=== PATIENT | male | born 1945 | race Caucasian/White ===

== ENCOUNTER 2016-06-19 15:10 | Inpatient (IN) | payer MEDICARE, OTHER ==
[~2016-06-19] VITALS: Ht 177.8 cm; Wt 115.0 kg
[2016-06-19] VITALS (90 sets, daily range): BP systolic 141–150; BP diastolic 85–90; PULSE 90–131; TEMP 98–99.1; O2SAT 93–99
[~2016-06-19 15:10] MED LIST: ACCURETIC 12.51 TAB PO; ACCURETIC 25 MG1 TAB PO; ACCURETIC PO; ASPIR-LOW81 MG PO; ASPIRIN 81M81 MG/TA2 PO; ATORVASTATIN; BACTRIM DS 8001 TAB PO; BENADRYL25 M2 PO; CANA100T PO; CEPHALEXIN500 M1 PO; DULCOLAX S10 MG/SUPP RC; DULCOLAX10 MG RC; FLOMAX 0.40.4 MG/CAP PO; HCTZ; HCTZ12.5TAB PO; HUMALOG100 U/ML SC; HUMALOG100 U/ML SQ; INSULIN HUMA100 U/ML IJ; K-DUR 10 MEQ T10 MEQ PO; KLOR-CON 1010 MEQ PO; LANTUS100 U/ML; LASIX 40MG TABL40 MG PO; LEVAQUIN 5500 MG/TA1 PO; LEVEMIR SQ; LIPITOR20 MG PO; LOPRESSOR100 MG PO; LORTAB 5/500 501 TAB PO; MAGNESIUM CHLORIDE; MILK OF MAGNESI30 ML PO; MULTI VITAMINS1 TAB PO; MVI PO; NORCO 325 MG-7.1 TAB PO; NORVASC 5MG5 MG/TAB PO; NOVLOG SQ; POTASSIUM PO; ROXICODONE 55 MG/TAB PO; SENOKOT S 50 MG1 TAB PO; ST. JOSEPH81 M2 PO; TRADJENTA5 MG PO; TYLENOL EXTRA500 M1 PO; ULTRAM 50MG TAB50 MG PO; XARELTO10 MG PO; ZESTRIL 10MG10 MG PO; [UNRECOGNIZED DRUG - OTHER]; [UNRECOGNIZED DRUG - OTHER]; [UNRECOGNIZED DRUG - OTHER] SQ
[2016-06-19 17:00] LABS: BASO # 0.1 (0.0-0.2); BASO % 0.4 % (0.0-2.0); EOS # 0.3 (0.0-0.7); EOS % 2.1 % (0-4.0); GRAN # 10.9 (1.4-6.5); GRAN % 76.5 % (42.2-75.2); HEMATOCRIT 40.5 % (42.0-52.0); HEMOGLOBIN 13.4 g/dl (13.5-18.0); LYMPH % 14.3 % (20.0-51.0); MEAN CELL VOLUME 91 fl (80.0-100.0); MEAN CORPUSCULAR HEMOGLOBIN 30 pg (27.0-31.0); MEAN CORPUSCULAR HGB CONC 33 g/dl (33.0-37.0); MEAN PLATELET VOLUME 9.1 fl (7.4-10.4); MONO # 0.9 (0.1-0.6); MONO % 6.3 % (1.7-9.3); PLATELET COUNT 367 K/mm3 (130-400); RED BLOOD COUNT 4.46 M/mm3 (4.20-5.60); REDCELL DISTRIBUTION WIDTH-CV 12.9 % (11.5-14.5); WHITE BLOOD COUNT 14.2 K/mm3 (4.8-10.8)
[2016-06-19 17:16] LABS: ADJUSTED CALCIUM 9.3 mg/dL (8.4-10.2); ALBUMIN 3.9 gm/dL (3.5-5.0); BILIRUBIN,TOTAL 1.1 mg/dL (0.0-1.0); C-REACTIVE PROTEIN 2.2 mg/dL (0.0-0.9); CALCIUM 9.2 mg/dL (8.4-10.2); CREATININE, serum 1.71 mg/dL (0.66-1.25); POTASSIUM 4.6 mmol/L (3.4-5.0); TOTAL PROTEIN 7.3 gm/dL (6.4-8.2)
[2016-06-19 17:38] LABS: PH 5 (5-8); SQUAMOUS EPITHELIAL 0-2 /hpf; URINE APPEARANCE Cloudy; URINE BACTERIA Rare /hpf; URINE BILIRUBIN Negative (NEGATIVE); URINE BLOOD 3+ (NEGATIVE); URINE COLOR Yellow; URINE GLUCOSE Negative (NEGATIVE); URINE KETONE Negative (NEGATIVE); URINE RBC >50 /hpf; URINE UROBILINOGEN Negative (NEGATIVE); URINE WBC >50 /hpf
[2016-06-20] VITALS (829 sets, daily range): BP systolic 100–142; BP diastolic 73–98; PULSE 80–96; TEMP 97.7–99.7; O2SAT 90–99
[2016-06-20 05:30] LABS: BASO % 0.4 % (0.0-2.0); EOS # 0.3 (0.0-0.7); EOS % 3.2 % (0-4.0); GRAN # 7.5 (1.4-6.5); GRAN % 72.1 % (42.2-75.2); LYMPH # 1.6 (1.2-3.4); LYMPH % 15.8 % (20.0-51.0); MEAN CELL VOLUME 91 fl (80.0-100.0); MEAN CORPUSCULAR HEMOGLOBIN 30 pg (27.0-31.0); MEAN CORPUSCULAR HGB CONC 33 g/dl (33.0-37.0); MEAN PLATELET VOLUME 9.2 fl (7.4-10.4); MONO # 0.8 (0.1-0.6); MONO % 8.1 % (1.7-9.3); PLATELET COUNT 318 K/mm3 (130-400); RED BLOOD COUNT 3.97 M/mm3 (4.20-5.60); REDCELL DISTRIBUTION WIDTH-CV 12.9 % (11.5-14.5); WHITE BLOOD COUNT 10.4 K/mm3 (4.8-10.8)
[2016-06-20 05:52] LABS: CALCIUM 8.4 mg/dL (8.4-10.2); CREATININE, serum 1.44 mg/dL (0.66-1.25); POTASSIUM 4.1 mmol/L (3.4-5.0)
[2016-06-21 03:42] VITALS: BP 123/74; PULSE 95; TEMP 98.4
[2016-06-21 07:48] VITALS: BP 112/70; PULSE 97; TEMP 98
[2016-06-21 12:33] VITALS: BP 139/69; PULSE 85; TEMP 98.2
[2016-06-21 16:28] VITALS: BP 124/65; PULSE 100; TEMP 98.5
[2016-06-21] MEDS ORDERED: CEFTIN500 MG PO (17:19)
== END 2016-06-21 18:32 | disposition home or self-care (01) | DRG 309 ==
LOC: COL.ER 15:10 → ICU 18:13 → IMCU 18:13 → MEDICAL 06-20 16:18
PROVIDERS: Emergency Medicine; Internal Medicine
DX: I48.91 Unspecified atrial fibrillation (principal); T83.511A Infection and inflammatory reaction due to indwelling urethral catheter, initial encounter; N39.0 Urinary tract infection, site not specified; E11.42 Type 2 diabetes mellitus with diabetic polyneuropathy; I25.10 Atherosclerotic heart disease of native coronary artery without angina pectoris; Z95.5 Presence of coronary angioplasty implant and graft; Z85.51 Personal history of malignant neoplasm of bladder; Z79.4 Long term (current) use of insulin; N18.9 Chronic kidney disease, unspecified
CPT/HCPCS: 99223-AI; J0696; J1815; J7030; J7050

== ENCOUNTER 2016-08-01 10:14 | Outpatient (CLI) | payer MEDICARE, OTHER ==
[~2016-08-01] VITALS: Ht 177.8 cm; Wt 111.3 kg
[~2016-08-01 10:14] MED LIST changes: +CEFTIN500 MG PO
[2016-08-01 10:56] VITALS: BP 102/85; PULSE 84; TEMP 98
[2016-08-01] MEDS ORDERED: BRILINTA90 MG PO (12:41)
[2016-08-01] MEDS ORDERED: LIPITOR 40MG TA40 MG PO (12:41)
[2016-08-01] MEDS ORDERED: CEPHALEXIN500 M1 PO (12:47)
== END 2016-08-01 13:44 | disposition home or self-care (01) ==
LOC: COL.RAD 10:14
DX: I48.91 Unspecified atrial fibrillation (principal); R94.31 Abnormal electrocardiogram [ECG] [EKG]
CPT/HCPCS: C1764

== ENCOUNTER 2016-09-01 16:50 | Inpatient (IN) | payer MEDICARE, OTHER ==
[~2016-09-01] VITALS: Ht 177.8 cm; Wt 117.0 kg
[~2016-09-01 16:50] MED LIST changes: +BRILINTA90 MG PO; +LIPITOR 40MG TA40 MG PO
[2016-09-06 08:55] VITALS: BP 131/79; PULSE 81; TEMP 98.1
[2016-09-06 09:58] LABS: HEMATOCRIT 41.4 % (42.0-52.0); HEMOGLOBIN 13.7 g/dl (13.5-18.0); MEAN CELL VOLUME 89 fl (80.0-100.0); MEAN CORPUSCULAR HEMOGLOBIN 29 pg (27.0-31.0); MEAN CORPUSCULAR HGB CONC 33 g/dl (33.0-37.0); MEAN PLATELET VOLUME 9.4 fl (7.4-10.4); PLATELET COUNT 283 K/mm3 (130-400); RED BLOOD COUNT 4.67 M/mm3 (4.20-5.60); REDCELL DISTRIBUTION WIDTH-CV 14.1 % (11.5-14.5); WHITE BLOOD COUNT 9.4 K/mm3 (4.8-10.8)
[2016-09-06 10:07] LABS: INR 1.1 (0.8-3.0); PROTHROMBIN TIME 11.8 SECONDS (9.7-12.8)
[2016-09-06 10:13] LABS: ADJUSTED CALCIUM 9.4 mg/dL (8.4-10.2); BILIRUBIN,TOTAL 1.4 mg/dL (0.0-1.0); CALCIUM 9.4 mg/dL (8.4-10.2); CREATININE, serum 1.5 mg/dL (0.66-1.25); POTASSIUM 3.9 mmol/L (3.4-5.0); TOTAL PROTEIN 7.6 gm/dL (6.4-8.2)
[2016-09-06 10:43] LABS: MAGNESIUM 2.2 mg/dL (1.6-2.3)
[2016-09-06] MEDS ORDERED: NATURAL POTASS595 MG PO (10:58)
[2016-09-06 11:43] VITALS: BP 152/95; PULSE 77; TEMP 97.9
[2016-09-06 16:17] VITALS: BP 131/74; PULSE 79; TEMP 98.3
[2016-09-06 19:38] VITALS: BP 114/76; PULSE 116; TEMP 98.6
[2016-09-06 23:41] VITALS: BP 126/75; PULSE 95; TEMP 98.5
[2016-09-07 05:25] VITALS: BP 128/80; PULSE 81; TEMP 97.9
[2016-09-07 08:13] VITALS: BP 110/66; PULSE 70; TEMP 98.4
[2016-09-07 10:47] LABS: BASO # 0.1 (0.0-0.2); BASO % 0.8 % (0.0-2.0); EOS # 0.2 (0.0-0.7); EOS % 2.2 % (0-4.0); GRAN # 7.7 (1.4-6.5); GRAN % 72.2 % (42.2-75.2); HEMATOCRIT 43.9 % (42.0-52.0); HEMOGLOBIN 14.2 g/dl (13.5-18.0); LYMPH # 1.7 (1.2-3.4); LYMPH % 15.5 % (20.0-51.0); MEAN CELL VOLUME 88 fl (80.0-100.0); MEAN CORPUSCULAR HEMOGLOBIN 28 pg (27.0-31.0); MEAN CORPUSCULAR HGB CONC 32 g/dl (33.0-37.0); MEAN PLATELET VOLUME 9.4 fl (7.4-10.4); MONO # 0.9 (0.1-0.6); MONO % 8.4 % (1.7-9.3); PLATELET COUNT 315 K/mm3 (130-400); REDCELL DISTRIBUTION WIDTH-CV 14.2 % (11.5-14.5); WHITE BLOOD COUNT 10.6 K/mm3 (4.8-10.8)
[2016-09-07 11:05] LABS: CALCIUM 9.1 mg/dL (8.4-10.2); CREATININE, serum 1.48 mg/dL (0.66-1.25); POTASSIUM 4.2 mmol/L (3.4-5.0)
[2016-09-07 11:22] VITALS: BP 125/81; PULSE 89; TEMP 98.5
[2016-09-07 15:25] VITALS: BP 115/70; PULSE 90; TEMP 98.7
[2016-09-07 19:20] VITALS: BP 118/72; PULSE 96; TEMP 98.6
[2016-09-07 23:26] VITALS: BP 99/72; PULSE 92; TEMP 98.3
[2016-09-08] VITALS (7 sets, daily range): BP systolic 77–120; BP diastolic 42–87; PULSE 61–85; TEMP 97.4–97.8
[2016-09-08 07:33] LABS: INR 1.4 (0.8-3.0); PROTHROMBIN TIME 15.8 SECONDS (9.7-12.8)
[2016-09-08 07:34] LABS: BASO # 0.1 (0.0-0.2); BASO % 0.6 % (0.0-2.0); EOS # 0.3 (0.0-0.7); EOS % 3.2 % (0-4.0); GRAN # 6.9 (1.4-6.5); GRAN % 67.3 % (42.2-75.2); HEMATOCRIT 42.6 % (42.0-52.0); LYMPH # 1.9 (1.2-3.4); LYMPH % 18.2 % (20.0-51.0); MEAN CELL VOLUME 88 fl (80.0-100.0); MEAN CORPUSCULAR HEMOGLOBIN 29 pg (27.0-31.0); MEAN CORPUSCULAR HGB CONC 33 g/dl (33.0-37.0); MEAN PLATELET VOLUME 9.2 fl (7.4-10.4); MONO % 10.1 % (1.7-9.3); PLATELET COUNT 309 K/mm3 (130-400); RED BLOOD COUNT 4.86 M/mm3 (4.20-5.60); REDCELL DISTRIBUTION WIDTH-CV 14.2 % (11.5-14.5); WHITE BLOOD COUNT 10.2 K/mm3 (4.8-10.8)
[2016-09-08 07:49] LABS: CALCIUM 9.1 mg/dL (8.4-10.2); CREATININE, serum 1.58 mg/dL (0.66-1.25); MAGNESIUM 2.2 mg/dL (1.6-2.3); POTASSIUM 3.5 mmol/L (3.4-5.0)
[2016-09-08 08:16] LABS: THYROID STIMULATING HORMONE 3.32 uIU/mL (0.465-4.680)
[2016-09-08] MEDS ORDERED: XARELTO15 MG PO (16:38)
[2016-09-08] MEDS ORDERED: BETAPACE 80MG80 MG PO (16:39)
== END 2016-09-08 18:03 | disposition home or self-care (01) | DRG 310 ==
LOC: MEDICAL 09-06 08:34
PROVIDERS: Internal Medicine Cardiovascular Disease
PROC: 5A2204Z Restoration of Cardiac Rhythm, Single (ICD-10-PCS; principal; 2016-09-08)
DX: I48.0 Paroxysmal atrial fibrillation (principal); I25.10 Atherosclerotic heart disease of native coronary artery without angina pectoris; Z95.1 Presence of aortocoronary bypass graft; Z95.5 Presence of coronary angioplasty implant and graft; I15.0 Renovascular hypertension; E11.42 Type 2 diabetes mellitus with diabetic polyneuropathy; Z79.4 Long term (current) use of insulin
CPT/HCPCS: J1815; J2250; J2704; J3010; J7030

== ENCOUNTER 2016-12-15 20:24 | Observation (INO) | payer MEDICARE, OTHER ==
[~2016-12-15] VITALS: Ht 177.8 cm; Wt 114.1 kg
[~2016-12-15 20:24] MED LIST changes: +BETAPACE 80MG80 MG PO; +NATURAL POTASS595 MG PO; +XARELTO15 MG PO
[2016-12-15 22:36] VITALS: BP 209/95; PULSE 65; TEMP 98.5
[2016-12-15 22:53] LABS: INR 1.4 (0.8-3.0); PROTHROMBIN TIME 15.6 SECONDS (9.7-12.8)
[2016-12-15 22:54] LABS: MAGNESIUM 2.1 mg/dL (1.6-2.3)
[2016-12-15 22:56] LABS: PARTIAL THROMBOPLASTIN TIME 44.1 SECONDS (26.0-37.0)
[2016-12-15 23:04] LABS: B-TYPE NATRIURETIC PEPTIDE 461 pg/mL (0-125)
[2016-12-15 23:09] LABS: TROPONIN-I < 0.012 ng/mL (0.000-0.034)
[2016-12-16] VITALS (8 sets, daily range): BP systolic 156–184; BP diastolic 60–88; PULSE 56–75; TEMP 97.3–98.3
[2016-12-16 07:47] LABS: BASO # 0.1 (0.0-0.2); BASO % 0.6 % (0.0-2.0); EOS # 0.2 (0.0-0.7); EOS % 2.6 % (0-4.0); GRAN # 5.5 (1.4-6.5); GRAN % 64.3 % (42.2-75.2); HEMOGLOBIN 13.9 g/dl (13.5-18.0); LYMPH # 1.9 (1.2-3.4); LYMPH % 22.2 % (20.0-51.0); MEAN CELL VOLUME 89 fl (80.0-100.0); MEAN CORPUSCULAR HEMOGLOBIN 29 pg (27.0-31.0); MEAN CORPUSCULAR HGB CONC 33 g/dl (33.0-37.0); MEAN PLATELET VOLUME 10.1 fl (7.4-10.4); MONO # 0.8 (0.1-0.6); MONO % 9.8 % (1.7-9.3); PLATELET COUNT 259 K/mm3 (130-400); RED BLOOD COUNT 4.73 M/mm3 (4.20-5.60); REDCELL DISTRIBUTION WIDTH-CV 13.7 % (11.5-14.5); WHITE BLOOD COUNT 8.5 K/mm3 (4.8-10.8)
[2016-12-16 08:04] LABS: ALANINE AMINOTRANSFERASE 24 U/L (21-72); ALBUMIN 3.7 gm/dL (3.5-5.0); ALKALINE PHOSPHATASE 98 U/L (50-136); ANION GAP 12 mmol/L (7-16); BILIRUBIN,TOTAL 1.3 mg/dL (0.0-1.0); BLOOD UREA NITROGEN 26 mg/dL (9-20); CALCIUM 8.8 mg/dL (8.4-10.2); CARBON DIOXIDE 26 mmol/L (22-30); CHLORIDE 100 mmol/L (98-107); CHOLESTEROL 151 mg/dL (120-200); CREATININE, serum 1.32 mg/dL (0.66-1.25); GLUCOSE 196 mg/dL (74-106); HDL CHOLESTEROL 28 mg/dL; LDL CHOLESTEROL 80 mg/dL; POTASSIUM 3.4 mmol/L (3.4-5.0); SODIUM 137 mmol/L (137-145); TOTAL PROTEIN 6.8 gm/dL (6.4-8.2); TRIGLYCERIDE 213 mg/dL
[2016-12-16 08:16] LABS: TROPONIN-I < 0.012 ng/mL (0.000-0.034)
== END 2016-12-16 15:59 | disposition home or self-care (01) ==
LOC: MEDICAL 20:24
PROVIDERS: Nurse Practitioner Family
DX: R07.89 Other chest pain (principal); I12.9 Hypertensive chronic kidney disease with stage 1 through stage 4 chronic kidney disease, or unspecified chronic kidney disease; I25.10 Atherosclerotic heart disease of native coronary artery without angina pectoris; E11.22 Type 2 diabetes mellitus with diabetic chronic kidney disease; N18.9 Chronic kidney disease, unspecified; M19.90 Unspecified osteoarthritis, unspecified site; J44.9 Chronic obstructive pulmonary disease, unspecified; J45.909 Unspecified asthma, uncomplicated; E78.5 Hyperlipidemia, unspecified; Z90.5 Acquired absence of kidney; Z95.5 Presence of coronary angioplasty implant and graft; Z96.653 Presence of artificial knee joint, bilateral; Z98.52 Vasectomy status; Z79.4 Long term (current) use of insulin; Z79.01 Long term (current) use of anticoagulants; Z85.51 Personal history of malignant neoplasm of bladder; Z82.49 Family history of ischemic heart disease and other diseases of the circulatory system; R00.1 Bradycardia, unspecified; I45.10 Unspecified right bundle-branch block; E11.40 Type 2 diabetes mellitus with diabetic neuropathy, unspecified
CPT/HCPCS: 99223-AI; 99238; A9502; J1815; J2785; J7030

== ENCOUNTER 2018-02-08 12:15 | Inpatient (IN) | payer MEDICARE, OTHER ==
[2018-02-08] VITALS (11 sets, daily range): BP systolic 126–167; BP diastolic 54–98; PULSE 52–69; TEMP 97.6–98.3
[~2018-02-08] VITALS: Ht 175.3 cm; Wt 117.0 kg
[2018-02-08 13:32] LABS: HEMOGLOBIN 11.6 g/dl (13.5-18.0)
[2018-02-08 13:44] LABS: CALCIUM 8.8 mg/dL (8.4-10.2); CREATININE, serum 1.66 mg/dL (0.66-1.25); POTASSIUM 4.3 mmol/L (3.4-5.0)
[2018-02-08 13:46] LABS: HEMATOCRIT 34.3 % (42.0-52.0)
[2018-02-09 04:04] VITALS: BP 168/69; PULSE 66; TEMP 98.2
[2018-02-09 06:02] LABS: HEMOGLOBIN 10.7 g/dl (13.5-18.0); MEAN CELL VOLUME 87 fl (80.0-100.0); MEAN CORPUSCULAR HEMOGLOBIN 30 pg (27.0-31.0); MEAN CORPUSCULAR HGB CONC 34 g/dl (33.0-37.0); MEAN PLATELET VOLUME 9.5 fl (7.4-10.4); PLATELET COUNT 316 K/mm3 (130-400); RED BLOOD COUNT 3.59 M/mm3 (4.20-5.60); REDCELL DISTRIBUTION WIDTH-CV 12.4 % (11.5-14.5)
[2018-02-09 06:18] LABS: HEMATOCRIT 31.2 % (42.0-52.0)
[2018-02-09 06:40] LABS: BAND 9 % (0-10); LYMPHOCYTE 4 % (20.0-51.0); NEUTROPHILS 86 % (42.0-75.2); PLATELET ESTIMATE NORMAL (NORMAL)
[2018-02-09 07:59] VITALS: BP 141/58; PULSE 67; TEMP 98
[2018-02-09] MEDS ORDERED: AMOXICILLIN 8751 TAB PO (08:06)
[2018-02-09 11:56] VITALS: BP 152/55; PULSE 67; TEMP 98.4
[2018-02-09 12:43] LABS: CALCIUM 8.2 mg/dL (8.4-10.2); CREATININE, serum 1.6 mg/dL (0.66-1.25); POTASSIUM 4.9 mmol/L (3.4-5.0)
[2018-02-09 15:43] VITALS: BP 167/59; PULSE 69; TEMP 98.8
[2018-02-09 19:37] VITALS: BP 147/64; PULSE 67; TEMP 98.5
[2018-02-10 04:10] VITALS: BP 142/74; PULSE 64; TEMP 98.4
[2018-02-10 07:54] VITALS: BP 154/71; PULSE 62; TEMP 98.1
[2018-02-10 11:05] LABS: CALCIUM 8.3 mg/dL (8.4-10.2); CREATININE, serum 1.66 mg/dL (0.66-1.25); POTASSIUM 3.6 mmol/L (3.4-5.0)
[2018-02-10 12:15] VITALS: BP 159/61; PULSE 66; TEMP 98.5
[2018-02-10 16:28] VITALS: BP 151/75; PULSE 83; TEMP 98.2
[2018-02-10 22:01] VITALS: BP 169/67; PULSE 76; TEMP 98.5
[2018-02-11 04:00] VITALS: BP 124/58; PULSE 69; TEMP 99
[2018-02-11 07:16] VITALS: BP 142/68; PULSE 68; TEMP 98.1
[2018-02-11 08:21] LABS: BASO # 0.1 (0.0-0.2); BASO % 0.7 % (0.0-2.0); EOS # 0.1 (0.0-0.7); EOS % 1.1 % (0-4.0); GRAN # 7.5 (1.4-6.5); GRAN % 64.4 % (42.2-75.2); HEMATOCRIT 32.9 % (42.0-52.0); LYMPH # 2.6 (1.2-3.4); LYMPH % 22.1 % (20.0-51.0); MEAN CELL VOLUME 89 fl (80.0-100.0); MEAN CORPUSCULAR HEMOGLOBIN 30 pg (27.0-31.0); MEAN CORPUSCULAR HGB CONC 33 g/dl (33.0-37.0); MEAN PLATELET VOLUME 9.6 fl (7.4-10.4); MONO # 1.2 (0.1-0.6); MONO % 10.6 % (1.7-9.3); PLATELET COUNT 343 K/mm3 (130-400); RED BLOOD COUNT 3.71 M/mm3 (4.20-5.60); REDCELL DISTRIBUTION WIDTH-CV 12.8 % (11.5-14.5)
[2018-02-11] MEDS ORDERED: NOVLOG SQ (09:59)
[2018-02-11] MEDS ORDERED: LEVEMIR SQ (09:59)
[2018-02-11 10:14] LABS: CALCIUM 8.3 mg/dL (8.4-10.2); CREATININE, serum 1.49 mg/dL (0.66-1.25); POTASSIUM 4.1 mmol/L (3.4-5.0)
[2018-02-11 11:37] VITALS: BP 161/71; PULSE 69; TEMP 98
== END 2018-02-11 17:00 | disposition home or self-care (01) | DRG 663 ==
LOC: SDCO 12:15 → SURG 17:36 → SDCO 02-10 17:36 → SURG 02-10 23:59 → SDCO 02-11 03:27 → SURG 02-11 03:27
PROVIDERS: Nurse Anesthetist, Certified Registered; Nurse Practitioner Family; Physician Assistant; Urology
PROC: 0W3R8ZZ Control Bleeding in Genitourinary Tract, Via Natural or Artificial Opening Endoscopic (ICD-10-PCS; principal; 2018-02-10)
PROC: 0TBB8ZX Excision of Bladder, Via Natural or Artificial Opening Endoscopic, Diagnostic (ICD-10-PCS; 2018-02-10)
PROC: 0WCR8ZZ Extirpation of Matter from Genitourinary Tract, Via Natural or Artificial Opening Endoscopic (ICD-10-PCS; 2018-02-10)
DX: R31.0 Gross hematuria (principal); E87.1 Hypo-osmolality and hyponatremia; I48.91 Unspecified atrial fibrillation; Z85.51 Personal history of malignant neoplasm of bladder; N40.0 Benign prostatic hyperplasia without lower urinary tract symptoms; E78.5 Hyperlipidemia, unspecified; J45.909 Unspecified asthma, uncomplicated; I25.10 Atherosclerotic heart disease of native coronary artery without angina pectoris; E11.22 Type 2 diabetes mellitus with diabetic chronic kidney disease; I12.9 Hypertensive chronic kidney disease with stage 1 through stage 4 chronic kidney disease, or unspecified chronic kidney disease; N18.9 Chronic kidney disease, unspecified; Z79.01 Long term (current) use of anticoagulants; Z79.4 Long term (current) use of insulin; Z95.5 Presence of coronary angioplasty implant and graft
CPT/HCPCS: OP; 99233-AI; G0378; J0690; J1100; J1815; J2405; J2704; J3010; J3480; J7030

== ENCOUNTER 2018-02-27 12:28 | Inpatient (IN) | payer MEDICARE, OTHER ==
[~2018-02-27] VITALS: Ht 175.3 cm; Wt 120.4 kg
[~2018-02-27 12:28] MED LIST changes: +AMOXICILLIN 8751 TAB PO; +CILOXAN 5 ML5 ML OU; +CIPRO 500MG TA500 MG PO; +NOVOLOG FLEX100 U/ML SQ; +ZADITOR 5 ML5 ML OP
[2018-02-27 14:41] VITALS: BP 177/75; PULSE 74; TEMP 97.4
[2018-02-27 16:40] LABS: BASO # 0.1 (0.0-0.2); BASO % 0.6 % (0.0-2.0); EOS # 0.3 (0.0-0.7); EOS % 2.4 % (0-4.0); GRAN # 8.4 (1.4-6.5); GRAN % 68.9 % (42.2-75.2); LYMPH # 2.3 (1.2-3.4); LYMPH % 18.7 % (20.0-51.0); MEAN CELL VOLUME 91 fl (80.0-100.0); MEAN CORPUSCULAR HGB CONC 33 g/dl (33.0-37.0); MEAN PLATELET VOLUME 8.6 fl (7.4-10.4); MONO # 0.8 (0.1-0.6); MONO % 6.9 % (1.7-9.3); PLATELET COUNT 436 K/mm3 (130-400); RED BLOOD COUNT 3.07 M/mm3 (4.20-5.60); REDCELL DISTRIBUTION WIDTH-CV 13.8 % (11.5-14.5)
[2018-02-27 16:42] LABS: HEMATOCRIT 27.9 % (42.0-52.0); HEMOGLOBIN 9.1 g/dl (13.5-18.0); MEAN CORPUSCULAR HEMOGLOBIN 30 pg (27.0-31.0)
[2018-02-27 17:02] LABS: ALBUMIN 3.3 gm/dL (3.5-5.0); BILIRUBIN,TOTAL 0.5 mg/dL (0.0-1.0); CALCIUM 8.5 mg/dL (8.4-10.2); CREATININE, serum 1.44 mg/dL (0.66-1.25); POTASSIUM 4.7 mmol/L (3.4-5.0); TOTAL PROTEIN 6.4 gm/dL (6.4-8.2)
[2018-02-27 20:12] VITALS: BP 152/77; PULSE 96; TEMP 97.9
[2018-02-27 23:50] VITALS: BP 160/76; PULSE 77; TEMP 98.4
[2018-02-28 04:00] VITALS: BP 118/41; PULSE 77; TEMP 97
[2018-02-28 07:59] VITALS: BP 142/69; PULSE 73; TEMP 98.4
[2018-02-28 11:04] LABS: MEAN CELL VOLUME 93 fl (80.0-100.0); MEAN CORPUSCULAR HGB CONC 33 g/dl (33.0-37.0); MEAN PLATELET VOLUME 8.8 fl (7.4-10.4); PLATELET COUNT 456 K/mm3 (130-400); RED BLOOD COUNT 2.92 M/mm3 (4.20-5.60); REDCELL DISTRIBUTION WIDTH-CV 14.2 % (11.5-14.5)
[2018-02-28 11:06] LABS: HEMOGLOBIN 8.8 g/dl (13.5-18.0); MEAN CORPUSCULAR HEMOGLOBIN 30 pg (27.0-31.0)
[2018-02-28 11:16] LABS: BAND 3 % (0-10); LYMPHOCYTE 19 % (20.0-51.0); NEUTROPHILS 72 % (42.0-75.2); PLATELET ESTIMATE INCREASED (NORMAL)
[2018-02-28 11:49] LABS: CALCIUM 8.4 mg/dL (8.4-10.2); CREATININE, serum 1.46 mg/dL (0.66-1.25); POTASSIUM 4.4 mmol/L (3.4-5.0)
[2018-02-28 12:59] VITALS: BP 97/57; PULSE 85; TEMP 98
[2018-02-28 15:41] VITALS: BP 132/55; PULSE 80; TEMP 97.9
[2018-02-28 20:00] VITALS: BP 153/65; PULSE 81; TEMP 98.3
[2018-03-01] VITALS (8 sets, daily range): BP systolic 108–149; BP diastolic 49–70; PULSE 69–87; TEMP 97–98.6
[2018-03-01 13:45] LABS: MEAN CELL VOLUME 93 fl (80.0-100.0); MEAN CORPUSCULAR HGB CONC 32 g/dl (33.0-37.0); MEAN PLATELET VOLUME 8.4 fl (7.4-10.4); PLATELET COUNT 435 K/mm3 (130-400); RED BLOOD COUNT 2.78 M/mm3 (4.20-5.60); REDCELL DISTRIBUTION WIDTH-CV 14.6 % (11.5-14.5)
[2018-03-01 13:46] LABS: HEMATOCRIT 25.9 % (42.0-52.0); HEMOGLOBIN 8.3 g/dl (13.5-18.0); MEAN CORPUSCULAR HEMOGLOBIN 30 pg (27.0-31.0)
[2018-03-01 13:57] LABS: CALCIUM 8.3 mg/dL (8.4-10.2); CREATININE, serum 1.76 mg/dL (0.66-1.25); POTASSIUM 4.2 mmol/L (3.4-5.0)
[2018-03-01 13:58] LABS: BAND 10 % (0-10); EOSINOPHIL 4 % (0-4); LYMPHOCYTE 11 % (20.0-51.0); NEUTROPHILS 70 % (42.0-75.2); PLATELET ESTIMATE INCREASED (NORMAL)
[2018-03-01 13:59] LABS: HYPOCHROMIA 1+
[2018-03-02] VITALS (12 sets, daily range): BP systolic 112–151; BP diastolic 32–68; PULSE 67–99; TEMP 98–98.9
[2018-03-02 06:39] LABS: MEAN CELL VOLUME 94 fl (80.0-100.0); MEAN CORPUSCULAR HGB CONC 32 g/dl (33.0-37.0); MEAN PLATELET VOLUME 8.7 fl (7.4-10.4); PLATELET COUNT 409 K/mm3 (130-400); RED BLOOD COUNT 2.52 M/mm3 (4.20-5.60); REDCELL DISTRIBUTION WIDTH-CV 14.6 % (11.5-14.5)
[2018-03-02 06:48] LABS: HEMATOCRIT 23.8 % (42.0-52.0); HEMOGLOBIN 7.6 g/dl (13.5-18.0); MEAN CORPUSCULAR HEMOGLOBIN 30 pg (27.0-31.0)
[2018-03-02 06:51] LABS: CREATININE, serum 1.8 mg/dL (0.66-1.25); POTASSIUM 4.1 mmol/L (3.4-5.0)
[2018-03-02 07:19] LABS: BAND 6 % (0-10); EOSINOPHIL 4 % (0-4); LYMPHOCYTE 20 % (20.0-51.0); NEUTROPHILS 68 % (42.0-75.2); PLATELET ESTIMATE INCREASED (NORMAL)
[2018-03-02 07:20] LABS: ANISOCYTOSIS 1+; HYPOCHROMIA 2+
[2018-03-03 07:23] LABS: MEAN CELL VOLUME 91 fl (80.0-100.0); MEAN CORPUSCULAR HGB CONC 32 g/dl (33.0-37.0); MEAN PLATELET VOLUME 8.9 fl (7.4-10.4); PLATELET COUNT 419 K/mm3 (130-400); RED BLOOD COUNT 2.79 M/mm3 (4.20-5.60); REDCELL DISTRIBUTION WIDTH-CV 15.1 % (11.5-14.5)
[2018-03-03 07:25] LABS: HEMATOCRIT 25.3 % (42.0-52.0); HEMOGLOBIN 8.2 g/dl (13.5-18.0); MEAN CORPUSCULAR HEMOGLOBIN 29 pg (27.0-31.0)
[2018-03-03 07:29] LABS: CALCIUM 7.9 mg/dL (8.4-10.2); CREATININE, serum 1.73 mg/dL (0.66-1.25); POTASSIUM 3.9 mmol/L (3.4-5.0)
[2018-03-03 07:46] LABS: ANISOCYTOSIS 1+; BAND 4 % (0-10); LYMPHOCYTE 29 % (20.0-51.0); NEUTROPHILS 64 % (42.0-75.2); PLATELET ESTIMATE INCREASED (NORMAL)
[2018-03-03 08:45] VITALS: BP 142/64; PULSE 69; TEMP 99.3
[2018-03-03 12:15] VITALS: BP 117/57; PULSE 60; TEMP 97.8
[2018-03-03 16:19] VITALS: BP 114/69; PULSE 55; TEMP 97.5
[2018-03-03 19:39] VITALS: BP 140/58; PULSE 68; TEMP 98
[2018-03-04] VITALS (11 sets, daily range): BP systolic 109–163; BP diastolic 48–72; PULSE 67–92; TEMP 98.1–99
[2018-03-04 11:02] LABS: HEMATOCRIT 26.7 % (42.0-52.0); HEMOGLOBIN 8.7 g/dl (13.5-18.0)
[2018-03-05 04:45] VITALS: BP 127/66; BP 141/56; PULSE 74; PULSE 75; TEMP 98; TEMP 98.3
[2018-03-05 08:20] VITALS: BP 125/53; PULSE 81; TEMP 99.1
[2018-03-05 09:26] LABS: MEAN CELL VOLUME 94 fl (80.0-100.0); MEAN CORPUSCULAR HGB CONC 33 g/dl (33.0-37.0); MEAN PLATELET VOLUME 8.7 fl (7.4-10.4); PLATELET COUNT 339 K/mm3 (130-400); RED BLOOD COUNT 2.89 M/mm3 (4.20-5.60); REDCELL DISTRIBUTION WIDTH-CV 15.7 % (11.5-14.5)
[2018-03-05 09:29] LABS: HEMATOCRIT 27.1 % (42.0-52.0); HEMOGLOBIN 8.8 g/dl (13.5-18.0); MEAN CORPUSCULAR HEMOGLOBIN 30 pg (27.0-31.0)
[2018-03-05 09:39] LABS: CALCIUM 8.1 mg/dL (8.4-10.2); CREATININE, serum 1.63 mg/dL (0.66-1.25); POTASSIUM 4.3 mmol/L (3.4-5.0)
[2018-03-05 11:14] VITALS: BP 137/62; PULSE 80; TEMP 97.6
[2018-03-05 15:37] VITALS: BP 122/60; PULSE 87; TEMP 97.7
[2018-03-05 20:08] VITALS: BP 136/64; PULSE 82; TEMP 98.2
[2018-03-05 23:37] VITALS: BP 143/59; PULSE 77; TEMP 98.8
[2018-03-06 04:12] VITALS: BP 135/55; PULSE 87; TEMP 98.7
[2018-03-06 07:50] VITALS: BP 141/57; PULSE 77; TEMP 98.4
[2018-03-06 10:01] LABS: BASO # 0.1 (0.0-0.2); BASO % 0.5 % (0.0-2.0); EOS # 0.3 (0.0-0.7); EOS % 2.1 % (0-4.0); GRAN # 11.5 (1.4-6.5); GRAN % 76.2 % (42.2-75.2); LYMPH # 2.2 (1.2-3.4); LYMPH % 14.8 % (20.0-51.0); MEAN CELL VOLUME 94 fl (80.0-100.0); MEAN CORPUSCULAR HGB CONC 32 g/dl (33.0-37.0); MEAN PLATELET VOLUME 8.7 fl (7.4-10.4); MONO # 0.9 (0.1-0.6); MONO % 5.7 % (1.7-9.3); PLATELET COUNT 423 K/mm3 (130-400); RED BLOOD COUNT 2.93 M/mm3 (4.20-5.60); REDCELL DISTRIBUTION WIDTH-CV 15.4 % (11.5-14.5)
[2018-03-06 10:03] LABS: HEMATOCRIT 27.5 % (42.0-52.0); HEMOGLOBIN 8.7 g/dl (13.5-18.0); MEAN CORPUSCULAR HEMOGLOBIN 30 pg (27.0-31.0)
[2018-03-06 10:09] LABS: CALCIUM 8.5 mg/dL (8.4-10.2); CREATININE, serum 1.7 mg/dL (0.66-1.25); POTASSIUM 4.2 mmol/L (3.4-5.0)
[2018-03-06 11:20] VITALS: BP 151/63; PULSE 82; TEMP 98.2
[2018-03-06 15:23] VITALS: BP 154/62; PULSE 89; TEMP 98.6
[2018-03-06 20:22] VITALS: BP 159/66; PULSE 80; TEMP 98
[2018-03-06 23:35] VITALS: BP 153/60; PULSE 82; TEMP 99
[2018-03-07 04:30] VITALS: BP 143/63; PULSE 78; TEMP 98.5
[2018-03-07 07:35] LABS: BASO # 0.1 (0.0-0.2); BASO % 0.6 % (0.0-2.0); EOS # 0.2 (0.0-0.7); EOS % 2.2 % (0-4.0); GRAN # 7.7 (1.4-6.5); GRAN % 70.9 % (42.2-75.2); LYMPH # 1.9 (1.2-3.4); LYMPH % 17.3 % (20.0-51.0); MEAN CELL VOLUME 94 fl (80.0-100.0); MEAN CORPUSCULAR HGB CONC 32 g/dl (33.0-37.0); MEAN PLATELET VOLUME 8.6 fl (7.4-10.4); MONO # 0.9 (0.1-0.6); MONO % 8.4 % (1.7-9.3); PLATELET COUNT 379 K/mm3 (130-400); RED BLOOD COUNT 2.93 M/mm3 (4.20-5.60); REDCELL DISTRIBUTION WIDTH-CV 15.1 % (11.5-14.5)
[2018-03-07 07:42] LABS: CALCIUM 8.3 mg/dL (8.4-10.2); CREATININE, serum 1.41 mg/dL (0.66-1.25); HEMATOCRIT 27.6 % (42.0-52.0); HEMOGLOBIN 8.8 g/dl (13.5-18.0); MEAN CORPUSCULAR HEMOGLOBIN 30 pg (27.0-31.0); POTASSIUM 4.2 mmol/L (3.4-5.0)
[2018-03-07 09:00] VITALS: BP 169/67; PULSE 76; TEMP 98.5
[2018-03-07] MEDS ORDERED: CIPRO 250MG TA250 MG PO (09:03)
[2018-03-07 11:43] VITALS: BP 151/64; PULSE 71; TEMP 98.2
== END 2018-03-07 13:00 | disposition home or self-care (01) | DRG 699 ==
LOC: SURG 12:28
PROVIDERS: Internal Medicine; Nurse Practitioner Family; Physician Assistant; Urology
PROC: 0TCB8ZZ Extirpation of Matter from Bladder, Via Natural or Artificial Opening Endoscopic (ICD-10-PCS; principal; 2018-03-04 13:00)
DX: N32.89 Other specified disorders of bladder (principal); E87.1 Hypo-osmolality and hyponatremia; N17.9 Acute kidney failure, unspecified; R31.0 Gross hematuria; E78.5 Hyperlipidemia, unspecified; E11.65 Type 2 diabetes mellitus with hyperglycemia; I12.9 Hypertensive chronic kidney disease with stage 1 through stage 4 chronic kidney disease, or unspecified chronic kidney disease; E11.22 Type 2 diabetes mellitus with diabetic chronic kidney disease; N18.3 Chronic kidney disease, stage 3 (moderate); E11.42 Type 2 diabetes mellitus with diabetic polyneuropathy; Z79.4 Long term (current) use of insulin; I48.91 Unspecified atrial fibrillation; I25.10 Atherosclerotic heart disease of native coronary artery without angina pectoris; Z87.891 Personal history of nicotine dependence; Z95.5 Presence of coronary angioplasty implant and graft; Z79.01 Long term (current) use of anticoagulants; H10.31 Unspecified acute conjunctivitis, right eye; E83.51 Hypocalcemia; D50.0 Iron deficiency anemia secondary to blood loss (chronic)
CPT/HCPCS: 99223; 99232-AI; 99233-AI; G0378; G0379; J0690; J1100; J1815; J2405; J2704; J2765; J3010; J7030; P9016; Q9967

== ENCOUNTER → 2018-03-15 | Emergency (ER) | payer MEDICARE, OTHER ==
[~2018-03-15] VITALS: Ht 175.3 cm; Wt 114.5 kg
[~2018-03-15] MED LIST changes: +CIPRO 250MG TA250 MG PO
[2018-03-15 17:21] VITALS: TEMP 99.4
[2018-03-15 19:30] VITALS: BP 164/84; PULSE 87
== END ==
LOC: COL.ER 17:11
DX: R31.9 Hematuria, unspecified (principal); R33.9 Retention of urine, unspecified; I48.91 Unspecified atrial fibrillation; J45.909 Unspecified asthma, uncomplicated; N40.0 Benign prostatic hyperplasia without lower urinary tract symptoms; E78.5 Hyperlipidemia, unspecified; I10 Essential (primary) hypertension; I25.10 Atherosclerotic heart disease of native coronary artery without angina pectoris; Z79.01 Long term (current) use of anticoagulants; Z85.51 Personal history of malignant neoplasm of bladder; Z79.4 Long term (current) use of insulin

== ENCOUNTER 2018-07-29 10:29 | Inpatient (IN) | payer MEDICARE, OTHER ==
[~2018-07-29] VITALS: Ht 175.3 cm; Wt 102.5 kg
[2018-07-29] VITALS (461 sets, daily range): BP systolic 132–178; BP diastolic 54–78; PULSE 41–45; TEMP 98.3–99; O2SAT 78–100
[2018-07-29 11:23] LABS: BASO # 0.1 (0.0-0.2); BASO % 0.5 % (0.0-2.0); EOS # 0.1 (0.0-0.7); EOS % 0.7 % (0-4.0); GRAN # 11.4 (1.4-6.5); GRAN % 76.5 % (42.2-75.2); HEMOGLOBIN 12.1 g/dl (13.5-18.0); LYMPH # 1.8 (1.2-3.4); LYMPH % 11.9 % (20.0-51.0); MEAN CELL VOLUME 86 fl (80.0-100.0); MEAN CORPUSCULAR HEMOGLOBIN 28 pg (27.0-31.0); MEAN CORPUSCULAR HGB CONC 33 g/dl (33.0-37.0); MEAN PLATELET VOLUME 9.7 fl (7.4-10.4); MONO # 1.5 (0.1-0.6); MONO % 9.9 % (1.7-9.3); PLATELET COUNT 322 K/mm3 (130-400); RED BLOOD COUNT 4.31 M/mm3 (4.20-5.60); REDCELL DISTRIBUTION WIDTH-CV 14.8 % (11.5-14.5)
[2018-07-29 11:41] LABS: ALANINE AMINOTRANSFERASE 15 U/L (21-72); ALBUMIN 3.4 gm/dL (3.5-5.0); ALKALINE PHOSPHATASE 104 U/L (50-136); ANION GAP 7 mmol/L (7-16); AST,SGOT 23 U/L (15-37); BILIRUBIN,TOTAL 1.8 mg/dL (0.0-1.0); BLOOD UREA NITROGEN 48 mg/dL (9-20); CALCIUM 8.5 mg/dL (8.4-10.2); CARBON DIOXIDE 27 mmol/L (22-30); CHLORIDE 98 mmol/L (98-107); CREATININE, serum 2.02 mg/dL (0.66-1.25); GLUCOSE 235 mg/dL (74-106); SODIUM 132 mmol/L (137-145); TOTAL PROTEIN 6.6 gm/dL (6.4-8.2)
[2018-07-29 11:55] LABS: TROPONIN-I < 0.012 ng/mL (0.000-0.035)
[2018-07-29] MEDS ORDERED: COZAAR 50MG50 MG/TAB PO (13:04)
[2018-07-29] MEDS ORDERED: LOPRESSOR100 MG PO (13:05)
[2018-07-29] MEDS ORDERED: LASIX 40MG TABL40 MG PO (13:58)
[2018-07-29] MEDS ORDERED: LASIX 20MG TABL20 MG PO (13:59)
[2018-07-29] MEDS ORDERED: LEVEMIR SQ (14:07)
[2018-07-29] MEDS ORDERED: NOVOLOG FLEX100 U/ML SQ (14:09)
[2018-07-29] MEDS ORDERED: COZAAR 25MG25 MG/TAB PO (14:15)
[2018-07-29] MEDS ORDERED: ASPIRIN 81M81 MG/TA2 PO (14:16)
[2018-07-29] MEDS ORDERED: NORVASC 5MG5 MG/TAB PO (14:16)
[2018-07-29] MEDS ORDERED: FLOMAX 0.40.4 MG/CAP PO (14:17)
[2018-07-29] MEDS ORDERED: STOOL SOFTENER100 M2 PO (14:18)
[2018-07-29 18:24] LABS: COLLECTION METHOD CATHETER
[2018-07-29 18:30] LABS: PH 6 (5-8); SQUAMOUS EPITHELIAL None Seen /hpf; URINE APPEARANCE Clear; URINE BACTERIA None Seen /hpf; URINE BILIRUBIN Negative (NEGATIVE); URINE BLOOD 1+ (NEGATIVE); URINE COLOR Straw; URINE GLUCOSE 3+ (NEGATIVE); URINE KETONE Negative (NEGATIVE); URINE LEUKOCYTE ESTERASE Negative (NEGATIVE); URINE NITRATE Negative (NEGATIVE); URINE PROTEIN(semi-quant) Negative (NEGATIVE); URINE UROBILINOGEN Negative (NEGATIVE)
[2018-07-29 18:53] LABS: CREATININE, serum 1.89 mg/dL (0.66-1.25)
[2018-07-29 18:54] LABS: FRACTIONAL EXCRETION OF NA+ 4.3 %
--- NOTE | 2018-07-29 19:10 | NUR ---
Report received from Albertina PAYNE
--- NOTE | 2018-07-29 20:00 | NUR ---
Pt assessment complete. Pt resting in recliner with demonstrated ability to either recline back or sit upright. Personal belongings within reach as well as call light. Pt denies any pain/ discomfort at this time although reports the sensation of feeling SOA. O2 and RR WNL on RA. Pt reports sitting upright helps with sensation. Speech is appropriate. Television is currently on.
--- NOTE | 2018-07-29 22:30 | NUR ---
Pt notified nurse of preference to sleep in recliner. Blankets provided for pt.
[2018-07-30] VITALS (162 sets, daily range): BP systolic 151–178; BP diastolic 40–72; PULSE 44–48; TEMP 98.3–99.2; O2SAT 79–100
[2018-07-30 05:05] LABS: BASO # 0.1 (0.0-0.2); BASO % 0.6 % (0.0-2.0); EOS # 0.1 (0.0-0.7); EOS % 0.9 % (0-4.0); GRAN # 8.6 (1.4-6.5); GRAN % 73.8 % (42.2-75.2); HEMOGLOBIN 11.7 g/dl (13.5-18.0); LYMPH # 1.5 (1.2-3.4); LYMPH % 12.6 % (20.0-51.0); MEAN CELL VOLUME 85 fl (80.0-100.0); MEAN CORPUSCULAR HEMOGLOBIN 28 pg (27.0-31.0); MEAN CORPUSCULAR HGB CONC 33 g/dl (33.0-37.0); MEAN PLATELET VOLUME 9.7 fl (7.4-10.4); MONO # 1.4 (0.1-0.6); MONO % 11.7 % (1.7-9.3); PLATELET COUNT 306 K/mm3 (130-400); RED BLOOD COUNT 4.22 M/mm3 (4.20-5.60); REDCELL DISTRIBUTION WIDTH-CV 14.8 % (11.5-14.5)
[2018-07-30 05:06] LABS: HEMATOCRIT 35.7 % (42.0-52.0)
[2018-07-30 05:16] LABS: ALBUMIN 3.1 gm/dL (3.5-5.0); BILIRUBIN,TOTAL 1.8 mg/dL (0.0-1.0); CALCIUM 8.4 mg/dL (8.4-10.2); CHOLESTEROL RISK RATIO 6.7; CREATININE, serum 1.87 mg/dL (0.66-1.25); MAGNESIUM 2.4 mg/dL (1.6-2.3); POTASSIUM 4.3 mmol/L (3.4-5.0); TOTAL PROTEIN 6.3 gm/dL (6.4-8.2)
[2018-07-30 05:45] LABS: BILIRUBIN UNCONJUGATED 1.6 mg/dL (0.0-1.1); BILIRUBIN,DIRECT 0.1 mg/dL (0.0-0.4)
--- NOTE | 2018-07-30 07:15 | NUR ---
Pt resting with eyes closed in chair. Report provided to Roopa Amato RN.
--- NOTE | 2018-07-30 07:59 | NUR ---
PATIENT SITTING IN RECLINER IN ROOM. HE SLEPT IN IT LAST NIGHT DUE TO HIS FEELING OF BEING SHORT OF BREATH. PATIENT STATES "I CAN'T TAKE IT ANY MORE. I AM SO SHORT OF BREATH. I DIDN'T SLEEP ANY LAST NIGHT." LUNG SOUNDS WERE CLEAR, TALKED WITH PATIENT ABOUT TALKING TO DR. ESTEVEZ ABOUT HOW LONG IT SHOULD TAKE TO GET THE MEDICATIONS OUT OF HIS SYSTEM.
--- NOTE | 2018-07-30 09:57 | NUR ---
SW attended clinical rounding and met with patient to discuss discharge planning. Patient lives with his Consuelo in [place]. his PCP is Isabella Mckinley at [facility] and he obtains his medications there or at [facility]. Patient was provided a DPOA-HC at a previous visit but has not completed it. Patient plans to dc home with family support. SW to continue to follow.
--- NOTE | 2018-07-30 11:28 | NUR ---
First visit from the ward supervisor. No needs right now.
--- NOTE | 2018-07-30 13:00 | NUR ---
Report given to Myra Suh on medical. Plan of care was discussed. Patient will be taken to room 306 on portable telemetry. Nurse was notified of patient's arrival.
--- NOTE | 2018-07-30 14:00 | NUR ---
Pt arrived to room 306 at this time. He is A/O x3. His breathing is even and unlabored on RA. Pt currently denies any pain. No SOB. Chronic N/T to bilateral hands and feet. Marialuisa MCKOY. BLE edema present 2+. POC discussed with patient who verbalizes understanding. Call light within reach. Will continue to monitor.
--- NOTE | 2018-07-30 19:58 | NUR ---
PT resting in bed A+Ox4. no pain. castaneda is draining freely, no kinks. urine is pale yellow with some sediment. pt c/o "eyes feel like they are in a sandbox", prn benadryl given. pt c/o post nasal drip. IV flushes well. no redness. no swelling. pt reports using call light if needing to go to the BR. education on low heart rate. no needs at this time. call light in reach
[2018-07-31] VITALS (13 sets, daily range): BP systolic 144–167; BP diastolic 45–96; PULSE 43–88; TEMP 97.6–98.8
--- NOTE | 2018-07-31 01:43 | NUR ---
pt felt clamy and sweaty, gave pt snack at 2330. pt NPO at midnight. no pain. reports feeling soa. HR 47, O2 sat 93%. no needs at this time. call light in reach
--- NOTE | 2018-07-31 05:25 | NUR ---
pt had an uneventful night. HR in 40's thorughout night. no pain. reports SOA. castaneda draining freely, without kinks. pt NPO at midnight. no needs at this time. call light in reach
[2018-07-31 06:17] LABS: BASO # 0.1 (0.0-0.2); BASO % 0.6 % (0.0-2.0); EOS # 0.1 (0.0-0.7); GRAN # 9.1 (1.4-6.5); GRAN % 75.2 % (42.2-75.2); HEMOGLOBIN 11.4 g/dl (13.5-18.0); LYMPH # 1.8 (1.2-3.4); LYMPH % 14.6 % (20.0-51.0); MEAN CELL VOLUME 86 fl (80.0-100.0); MEAN CORPUSCULAR HEMOGLOBIN 28 pg (27.0-31.0); MEAN CORPUSCULAR HGB CONC 33 g/dl (33.0-37.0); MEAN PLATELET VOLUME 9.9 fl (7.4-10.4); MONO % 8.2 % (1.7-9.3); PLATELET COUNT 331 K/mm3 (130-400); RED BLOOD COUNT 4.06 M/mm3 (4.20-5.60); REDCELL DISTRIBUTION WIDTH-CV 14.6 % (11.5-14.5)
[2018-07-31 06:22] LABS: HEMATOCRIT 34.8 % (42.0-52.0)
[2018-07-31 06:35] LABS: CALCIUM 8.3 mg/dL (8.4-10.2); CREATININE, serum 1.74 mg/dL (0.66-1.25); POTASSIUM 4.1 mmol/L (3.4-5.0)
--- NOTE | 2018-07-31 07:14 | NUR ---
pt stated, "i feel like i will pass out, my ears are ringing." vitals assessed and stable. no needs at this time. call light in reach. report given to KERRY Lal
[2018-07-31 07:36] LABS: INR 1.2 (0.8-3.0); PROTHROMBIN TIME 13.3 SECONDS (9.7-12.8)
--- NOTE | 2018-07-31 09:24 | NUR ---
Assessment complete.patient awake,alert and oriented x4.denies pain or discomfort.HR in 40s.pulses weak.some meds held per cardiology.pacemaker inplantation scheduled for today.pt NPO.no other needs voiced at this time.call light in reach
--- NOTE | 2018-07-31 12:23 | NUR ---
pt taken to OR for pacemaker implantation.
--- NOTE | 2018-07-31 12:35 | NUR ---
ALL MEDS GIVEN VIA VERBAL WITH READBACK. SEE MERGE FOR ADMIN TIMES.
--- NOTE | 2018-07-31 14:18 | NUR ---
Pt return to room 306 from computer laboratory technician.pacemaker implanted to left upper chest and loop recorder removed.pt awake and able to follow commands.family at bedside.VSS.patient denies denies pain at this time.will continue to monitor.call light in reach
--- NOTE | 2018-07-31 18:26 | NUR ---
pt resting in bed at this time.VSS.HR in 80s.denies dizziness and vertigo.education provided regarding pacemaker and sling.patient voiced understanding.denies any pain.denies any needs at this time.call light in reach
--- NOTE | 2018-07-31 20:25 | NUR ---
Patient resting in bed watching tv. Blood sugar elevated this eveningat 453. SAMANTHA Wheeler notified, give scheduled 30 units of levemir and 14 units of novolog via HDSS, will recheck blood sugar in 4 hours. Assessment completed, pacemaker site C/D/I, loop recorder removed and site is C/D/I. Denies pain. Elam in place. IV site free of comlications, C/D/I. No further needs at this time.
[2018-08-01 04:27] VITALS: BP 162/59; PULSE 73; TEMP 98.6
--- NOTE | 2018-08-01 05:07 | NUR ---
Patient slept on/off last night. Both dressings c/d/i. Some elevated blood pressures, hydralazine adminsitered twice last night for SBP>160. Denies pain. Ambulatory. Elam catheter in place. No further needs at this time.
--- NOTE | 2018-08-01 05:45 | NUR ---
Patient's blood sugar dropped this morning to 79. As this is such a big drop in 5-6 hours, this nurse gave patient some ming crackers, juice, and applesauce to choose from.
[2018-08-01 06:34] LABS: BASO # 0.1 (0.0-0.2); BASO % 0.6 % (0.0-2.0); EOS # 0.3 (0.0-0.7); GRAN # 9.2 (1.4-6.5); GRAN % 73.1 % (42.2-75.2); LYMPH # 1.6 (1.2-3.4); LYMPH % 12.9 % (20.0-51.0); MEAN CELL VOLUME 84 fl (80.0-100.0); MEAN CORPUSCULAR HEMOGLOBIN 28 pg (27.0-31.0); MEAN CORPUSCULAR HGB CONC 33 g/dl (33.0-37.0); MEAN PLATELET VOLUME 9.3 fl (7.4-10.4); MONO # 1.4 (0.1-0.6); MONO % 11.1 % (1.7-9.3); PLATELET COUNT 376 K/mm3 (130-400); RED BLOOD COUNT 4.28 M/mm3 (4.20-5.60); REDCELL DISTRIBUTION WIDTH-CV 14.5 % (11.5-14.5)
[2018-08-01 06:47] LABS: ALBUMIN 3.3 gm/dL (3.5-5.0); BILIRUBIN,TOTAL 1.3 mg/dL (0.0-1.0); CALCIUM 8.5 mg/dL (8.4-10.2); CREATININE, serum 1.66 mg/dL (0.66-1.25); TOTAL PROTEIN 6.6 gm/dL (6.4-8.2)
[2018-08-01 07:00] VITALS: BP 158/44; PULSE 80; TEMP 98.4
--- NOTE | 2018-08-01 10:10 | NUR ---
Assessment complete.patient awake,a/ox4.denies pain or discomfort at this time.LSCTA.breathing even and unlabored.dressing to left chest CDI.pacemaker and loop recorder sites covered with carmen and tape are CDI.patient denies pain to these areas.Reports itchy eyes,benadryl given.BLE edema 2+.Elam catheter in place and draining adequately.INT x2 to RAC and LAC.patient VSS.Blood sugar Stable.denies any other needs at this time.call light in reach
[2018-08-01 10:45] VITALS: BP 141/61; PULSE 105; TEMP 98.7
--- NOTE | 2018-08-01 12:56 | NUR ---
SW attended clinical rounds. Patient will be discharging home today. SW presented an IM to patient. He signed but did not want a copy.
[2018-08-01] MEDS ORDERED: CEPHALEXIN500 M1 PO (14:30)
[2018-08-01] MEDS ORDERED: NORVASC 10MG10 MG PO (14:31)
--- NOTE | 2018-08-01 15:24 | NUR ---
INT removed and patient education was provided to the patient and his family. All questions answered and the patient was escorted out via wheelchair.
== END 2018-08-01 15:40 | disposition home or self-care (01) | DRG 242 ==
LOC: COL.ER 10:29 → ICU 12:25 → MEDICAL 07-30 13:43
PROVIDERS: Emergency Medicine; Physician Assistant; ADMIT Hospitalist
PROC: 0JH607Z Insertion of Cardiac Resynchronization Pacemaker Pulse Generator into Chest Subcutaneous Tissue and Fascia, Open Approach (ICD-10-PCS; principal; 2018-07-31)
PROC: 02HL3JZ Insertion of Pacemaker Lead into Left Ventricle, Percutaneous Approach (ICD-10-PCS; 2018-07-31)
PROC: 02H63JZ Insertion of Pacemaker Lead into Right Atrium, Percutaneous Approach (ICD-10-PCS; 2018-07-31)
PROC: 02HK3JZ Insertion of Pacemaker Lead into Right Ventricle, Percutaneous Approach (ICD-10-PCS; 2018-07-31)
PROC: 0JPT02Z Removal of Monitoring Device from Trunk Subcutaneous Tissue and Fascia, Open Approach (ICD-10-PCS; 2018-07-31)
DX: I44.2 Atrioventricular block, complete (principal); I50.33 Acute on chronic diastolic (congestive) heart failure; N17.9 Acute kidney failure, unspecified; E87.1 Hypo-osmolality and hyponatremia; I13.0 Hypertensive heart and chronic kidney disease with heart failure and stage 1 through stage 4 chronic kidney disease, or unspecified chronic kidney disease; E11.22 Type 2 diabetes mellitus with diabetic chronic kidney disease; N18.3 Chronic kidney disease, stage 3 (moderate); I48.0 Paroxysmal atrial fibrillation; I25.10 Atherosclerotic heart disease of native coronary artery without angina pectoris; E11.65 Type 2 diabetes mellitus with hyperglycemia; Z23 Encounter for immunization; E78.5 Hyperlipidemia, unspecified; Z85.51 Personal history of malignant neoplasm of bladder; Z95.5 Presence of coronary angioplasty implant and graft; E11.42 Type 2 diabetes mellitus with diabetic polyneuropathy; Z79.4 Long term (current) use of insulin; J45.20 Mild intermittent asthma, uncomplicated
CPT/HCPCS: 99222-AI; 99232-AI; 99239; C1769; C1894; C1898; C1900; C2621; J0360; J0690; J1644; J1815; J1940; J2250; J3010; J7030; Q9967

== ENCOUNTER → 2019-09-06 | Outpatient (CLI) | payer MEDICARE, OTHER ==
[~2019-09-06] MED LIST changes: +CLEOCIN HCL300 MG PO; +COZAAR 25MG25 MG/TAB PO; +COZAAR 50MG50 MG/TAB PO; +LASIX 20MG TABL20 MG PO; +NORVASC 10MG10 MG PO; +STOOL SOFTENER100 M2 PO
== END ==
LOC: ZCOL.LAB 13:48
DX: E11.621 Type 2 diabetes mellitus with foot ulcer (principal); E11.22 Type 2 diabetes mellitus with diabetic chronic kidney disease; N18.9 Chronic kidney disease, unspecified; L97.509 Non-pressure chronic ulcer of other part of unspecified foot with unspecified severity

== ENCOUNTER → 2019-10-08 | Outpatient (CLI) | payer MEDICARE, OTHER ==
[~2019-10-08] MED LIST changes: +AMOXICILLIN/CLA1 TA1 PO; +[UNRECOGNIZED DRUG - OTHER]
== END ==
LOC: ZCOL.LAB 16:09
DX: E11.621 Type 2 diabetes mellitus with foot ulcer (principal)

== ENCOUNTER 2020-01-29 10:48 | Emergency (ER) | payer MEDICARE, OTHER ==
[~2020-01-29] VITALS: Ht 175.3 cm; Wt 120.0 kg
[2020-01-29 10:53] VITALS: TEMP 98.2
[2020-01-29] MEDS ORDERED: COZAAR 50MG50 MG/TAB PO (11:25)
[2020-01-29] MEDS ORDERED: LANTUS100 U/ML SQ (11:27)
[2020-01-29] MEDS ORDERED: HUMALOG100 U/ML SQ (11:27)
[2020-01-29 12:20] LABS: BASO # 0.1 (0.0-0.2); BASO % 0.7 % (0.0-2.0); EOS # 0.2 (0.0-0.7); EOS % 1.6 % (0-4.0); GRAN # 6.5 (1.4-6.5); GRAN % 71.8 % (42.2-75.2); HEMATOCRIT 44.5 % (42.0-52.0); HEMOGLOBIN 14.6 g/dl (13.5-18.0); LYMPH # 1.6 (1.2-3.4); LYMPH % 17.1 % (20.0-51.0); MEAN CELL VOLUME 87 fl (80.0-100.0); MEAN CORPUSCULAR HEMOGLOBIN 29 pg (27.0-31.0); MEAN CORPUSCULAR HGB CONC 33 g/dl (33.0-37.0); MEAN PLATELET VOLUME 9.3 fl (7.4-10.4); MONO # 0.8 (0.1-0.6); MONO % 8.4 % (1.7-9.3); PLATELET COUNT 274 K/mm3 (130-400); RED BLOOD COUNT 5.12 M/mm3 (4.20-5.60); REDCELL DISTRIBUTION WIDTH-CV 14.3 % (11.5-14.5)
[2020-01-29 12:34] LABS: ALANINE AMINOTRANSFERASE 13 U/L (4-49); ALBUMIN 3.9 gm/dL (3.5-5.0); ALKALINE PHOSPHATASE 112 U/L (50-136); ANION GAP 6 mmol/L (7-16); AST,SGOT 27 U/L (15-37); BILIRUBIN,TOTAL 1.2 mg/dL (0.0-1.0); BLOOD UREA NITROGEN 30 mg/dL (9-20); CALCIUM 9.4 mg/dL (8.4-10.2); CARBON DIOXIDE 27 mmol/L (22-30); CHLORIDE 102 mmol/L (98-107); CREATININE, serum 1.64 (0.66-1.25); GLUCOSE 190 mg/dL (74-106); POTASSIUM 4.3 mmol/L (3.4-5.0); SODIUM 135 mmol/L (137-145); TOTAL PROTEIN 7.4 gm/dL (6.4-8.2)
[2020-01-29 12:58] LABS: TROPONIN-I < 0.012 ng/mL (0.000-0.035)
[2020-01-29 13:12] VITALS: BP 169/78; PULSE 73
== END 2020-01-29 13:21 | disposition home or self-care (01) ==
LOC: COL.ER 10:48
PROVIDERS: Emergency Medicine
DX: I10 Essential (primary) hypertension (principal); E11.9 Type 2 diabetes mellitus without complications; Z79.4 Long term (current) use of insulin; Z95.5 Presence of coronary angioplasty implant and graft

== ENCOUNTER 2020-07-17 05:44 | Day surgery (SDC) | payer MEDICARE ==
[~2020-07-17] VITALS: Ht 172.7 cm; Wt 121.4 kg
[~2020-07-17 05:44] MED LIST changes: +LANTUS100 U/ML SQ
[2020-07-17 06:21] VITALS: BP 120/61; PULSE 84; TEMP 98.4
[2020-07-17] MEDS ORDERED: NORVASC 10MG10 MG PO (07:03)
[2020-07-17] MEDS ORDERED: LIPITOR 40MG TA40 MG PO (07:04)
[2020-07-17] MEDS ORDERED: COLACE 100100 MG/CAP PO (07:05)
[2020-07-17] MEDS ORDERED: HYGROTON 2525 MG/TAB PO (07:05)
[2020-07-17] MEDS ORDERED: DOXYCYCLINE 10100 MG PO (07:06)
[2020-07-17] MEDS ORDERED: NEURONTIN100 MG/CAP PO (07:07)
[2020-07-17] MEDS ORDERED: LASIX 40MG TABL40 MG PO (07:07)
[2020-07-17] MEDS ORDERED: APRESOLINE 25MG25 MG PO (07:08)
[2020-07-17] MEDS ORDERED: LANTUS100 U/ML SQ (07:09)
[2020-07-17] MEDS ORDERED: COZAAR100 MG PO (07:10)
[2020-07-17] MEDS ORDERED: HUMALOG100 U/ML SQ (07:10)
[2020-07-17] MEDS ORDERED: VITRUM SENIOR1 TA2 PO (07:11)
[2020-07-17] MEDS ORDERED: BETAPACE 80MG80 MG PO (07:12)
[2020-07-17] MEDS ORDERED: NITROSTAT0.4 MG/TAB SL (07:12)
[2020-07-17 07:57] VITALS: BP 142/62; PULSE 72
--- NOTE | 2020-07-17 07:57 | NUR ---
Patient returns to room 7 per cart from surgery accompanied by Rigoberto RN and Jin ARMOR SENIOR SERGEANT. Patient is awake and alert. Temp 97.4 and room air sats 100%. Foot of cart elevlated and bulky rolando wrap dressing clean and dry. Post op shoe is in place. Given water and orange juice to drink.
[2020-07-17 08:13] VITALS: BP 131/63; PULSE 65
--- NOTE | 2020-07-17 08:28 | NUR ---
Eating applesauce and toast. Denies pain and dressing remains clean and dry.
[2020-07-17 08:43] VITALS: BP 153/68; PULSE 64
--- NOTE | 2020-07-17 08:43 | NUR ---
Tolerated snack and fluids. States that he is ready for discharge.
--- NOTE | 2020-07-17 08:55 | NUR ---
IV discontined and site is free of redness. Post op shoe in place on the right foot and dressing reamains dry.
--- NOTE | 2020-07-17 09:10 | NUR ---
Sitting on the edge of the cart dressing self. Denies pain or nausea.
[2020-07-17] MEDS ORDERED: NORCO 325 MG-7.1 TAB PO (09:19)
--- NOTE | 2020-07-17 09:24 | NUR ---
Given dismissal instructions and voices understanding of these. Provided script for Anderson. Instructed that he may take over the counter tylenol if needed due to nausea and vomiting associated with Anderson. Patient agrees to do this. 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
--- NOTE | 2020-07-17 09:31 | NUR ---
Patient dismissed to home driven by spouse and taken to the front door per wheelchair and assisted into vehicle by this RN with instructions in hand.
--- NOTE | 2020-07-17 10:03 | NUR ---
Initial visit; Patient thanked Brushing Machine Operator for looking in on him and offering prayer for recovery and God's blessings.
== END 2020-07-17 09:31 | disposition home or self-care (01) ==
LOC: SDCO 05:44
DX: L97.519 Non-pressure chronic ulcer of other part of right foot with unspecified severity (principal); M86.9 Osteomyelitis, unspecified; J44.9 Chronic obstructive pulmonary disease, unspecified; I10 Essential (primary) hypertension; E11.42 Type 2 diabetes mellitus with diabetic polyneuropathy; I48.91 Unspecified atrial fibrillation; Z79.82 Long term (current) use of aspirin; Z79.4 Long term (current) use of insulin; Z96.653 Presence of artificial knee joint, bilateral; I25.10 Atherosclerotic heart disease of native coronary artery without angina pectoris; D64.9 Anemia, unspecified; M19.90 Unspecified osteoarthritis, unspecified site
CPT/HCPCS: J0690; J2250; J2704; J3010; J7030

== ENCOUNTER 2020-10-30 11:03 | Inpatient (IN) | payer MEDICARE ==
[~2020-10-30] VITALS: Ht 172.7 cm; Wt 127.3 kg
[~2020-10-30 11:03] MED LIST changes: +APRESOLINE 25MG25 MG PO; +COLACE 100100 MG/CAP PO; +COZAAR100 MG PO; +DOXYCYCLINE 10100 MG PO; +HYGROTON 2525 MG/TAB PO; +NEURONTIN100 MG/CAP PO; +NITROSTAT0.4 MG/TAB SL; +VITRUM SENIOR1 TA2 PO
[2020-10-30 12:10] LABS: BASO # 0.1 (0.0-0.2); BASO % 0.4 % (0.0-2.0); EOS # 0.1 (0.0-0.7); EOS % 0.7 % (0-4.0); GRAN # 10.8 (1.4-6.5); GRAN % 77.3 % (42.2-75.2); HEMOGLOBIN 11.8 g/dl (13.5-18.0); LYMPH # 1.7 (1.2-3.4); LYMPH % 12.4 % (20.0-51.0); MEAN CELL VOLUME 89 fl (80.0-100.0); MEAN CORPUSCULAR HEMOGLOBIN 29 pg (27.0-31.0); MEAN CORPUSCULAR HGB CONC 33 g/dl (33.0-37.0); MEAN PLATELET VOLUME 8.9 fl (7.4-10.4); MONO # 1.2 (0.1-0.6); MONO % 8.6 % (1.7-9.3); PLATELET COUNT 370 K/mm3 (130-400); RED BLOOD COUNT 4.04 M/mm3 (4.20-5.60); REDCELL DISTRIBUTION WIDTH-CV 13.3 % (11.5-14.5)
[2020-10-30 12:15] LABS: HEMATOCRIT 35.8 % (42.0-52.0)
[2020-10-30 12:19] LABS: INR 1.2 (0.8-3.0); PROTHROMBIN TIME 12.8 SECONDS (9.7-12.8)
[2020-10-30 12:24] LABS: ALBUMIN 3.9 gm/dL (3.5-5.0); BILIRUBIN,TOTAL 0.7 mg/dL (0.0-1.0); C-REACTIVE PROTEIN 3.8 mg/dL (0.0-0.9); CALCIUM 9.1 mg/dL (8.4-10.2); CREATININE, serum 2.04 (0.66-1.25); POTASSIUM 4.4 mmol/L (3.4-5.0); TOTAL PROTEIN 7.3 gm/dL (6.4-8.2)
[2020-10-30 13:57] LABS: COLLECTION METHOD CLEAN CATCH
[2020-10-30 14:08] LABS: PH 6 (5-8); SQUAMOUS EPITHELIAL None Seen /hpf; URINE APPEARANCE Clear; URINE BACTERIA None Seen /hpf; URINE BILIRUBIN Negative (NEGATIVE); URINE BLOOD Negative (NEGATIVE); URINE COLOR Straw; URINE GLUCOSE 2+ (NEGATIVE); URINE KETONE Negative (NEGATIVE); URINE LEUKOCYTE ESTERASE Negative (NEGATIVE); URINE NITRATE Negative (NEGATIVE); URINE PROTEIN(semi-quant) Negative (NEGATIVE); URINE RBC 0-2 /hpf; URINE UROBILINOGEN Negative (NEGATIVE)
[2020-10-30 21:15] VITALS: BP 142/92; PULSE 75; TEMP 98.9
[2020-10-31 00:14] VITALS: BP 176/70; PULSE 106; TEMP 98.7
[2020-10-31 04:23] VITALS: BP 152/54; PULSE 94; TEMP 98.5
--- NOTE | 2020-10-31 05:01 | NUR ---
PATIENT HAD RESTFUL NIGHT. HAD VERY FEW C/O AND REQUESTED NO PRN MEDICATIONS. DECLINES ANY PAIN MEDICATIONS FOR WRIST. NO OTHER CONCERNS VOICED AT THIS TIME.
[2020-10-31 06:32] LABS: BASO % 0.3 % (0.0-2.0); EOS # 0.1 (0.0-0.7); EOS % 1.2 % (0-4.0); GRAN # 8.3 (1.4-6.5); GRAN % 72.6 % (42.2-75.2); HEMOGLOBIN 10.4 g/dl (13.5-18.0); LYMPH # 1.8 (1.2-3.4); LYMPH % 15.2 % (20.0-51.0); MEAN CELL VOLUME 89 fl (80.0-100.0); MEAN CORPUSCULAR HEMOGLOBIN 29 pg (27.0-31.0); MEAN CORPUSCULAR HGB CONC 33 g/dl (33.0-37.0); MONO # 1.2 (0.1-0.6); MONO % 10.1 % (1.7-9.3); PLATELET COUNT 319 K/mm3 (130-400); RED BLOOD COUNT 3.58 M/mm3 (4.20-5.60); REDCELL DISTRIBUTION WIDTH-CV 13.1 % (11.5-14.5)
[2020-10-31 06:37] LABS: HEMATOCRIT 31.8 % (42.0-52.0)
[2020-10-31 06:46] LABS: CALCIUM 8.9 mg/dL (8.4-10.2); CREATININE, serum 1.8 (0.66-1.25); POTASSIUM 4.1 mmol/L (3.4-5.0)
[2020-10-31 07:52] VITALS: BP 149/79; PULSE 91; TEMP 98.5
[2020-10-31 12:23] VITALS: BP 157/76; PULSE 76; TEMP 98.5
--- NOTE | 2020-10-31 13:02 | NUR ---
Women Nurse met with patient to discuss discharge planning. Patient lives in [place] with his , Consuelo (ph#[phone]) and their son, who patient reports is an amputee. Patient goes to the [facility] for primary care and medications. Patient states he is able to get his insulin at a discounted rate through [email or web address]. Patient has access to a wheelchair, walkers, and canes but reports he normally does not need them. Patient reports he is normally independent with ADLS and plans to return home upon discharge. Patient does not have Advance Directives but was interested in DPOA-HC form. SW provided. PT/OT have been ordered for patient. Discharge Plan: Home pending PT/OT recs.
[2020-10-31 15:35] VITALS: BP 149/57; PULSE 62; TEMP 98.2
--- NOTE | 2020-10-31 17:54 | NUR ---
Contacted Dr. Veloz, patient concerned about blood glucose. Additional dose of insulin given at this time, increased per orders.
--- NOTE | 2020-10-31 18:50 | NUR ---
Patient doing well throughout the day, castaneda maintined to DD with clear yellow urine present. Patient denies pain throughout the day. Dressing to lateral right leg with drainage present. Left foot ulcer noted, gauze and Mylse wrap dressing placed on foot. Splint to right hand CMS intact. Denies furhter needs at this time. Reported off to machinist 2nd shift.
[2020-10-31 19:42] VITALS: BP 152/58; PULSE 60; TEMP 98.1
--- NOTE | 2020-10-31 21:18 | NUR ---
PT IN BED WITH HOB ELEVATED TO 45 DEGREE ANGLE. A/O X3 DENIES PAIN AT THIS TIME. NO NEEDS AT THIS TIME, CALL LIGHT WITHIN REACH. DRSG CLEAN, DRY AND INTACT.
[2020-11-01 00:50] VITALS: BP 129/54; PULSE 65; TEMP 98.2
--- NOTE | 2020-11-01 04:30 | NUR ---
PT HAD A GOOD NIGHT, WITH NO C/O PAIN OR DISCOMFORT. PT'S DRSG ON LEFT STUMP IS CLEAN, DRY, AND INTACT. PT HAS NO NEEDS AT THIS TIME, AND CALL LIGHT WITHIN REACH.
[2020-11-01 04:31] VITALS: BP 126/63; PULSE 63; TEMP 98
--- NOTE | 2020-11-01 04:36 | NUR ---
NO ISSUES OR CONCERNS NOTED THIS SHIFT. PT HAD A GOOD NIGHT. PT DID GET SOME SLEEP/REST. PT STATED THAT HE HAD A LITTLE PAIN IN HIS RIGHT ARM, BUT REFUSES TO TAKE ANY MEDICATION FOR IT. PT STATED THAT IT ISN'T REALLY BAD. CALL LIGHT WITHIN REACH.
[2020-11-01 08:00] VITALS: BP 130/59; PULSE 68; TEMP 97.8
--- NOTE | 2020-11-01 08:50 | NUR ---
Patient resting in bed. Awake & alert. minimal reports of pain. Tolerating breakfast without nausea. Ortho rounded. New dressing to right alvarenga, drainage noted. Dressing to left foot ulcer. no active drainage. Elam to DD. Still awaiting Mri. all am medication given, Vss, tele on.
--- NOTE | 2020-11-01 11:08 | NUR ---
Patient resting in bed. Provided with hygiene supplies. Offered shower, no interest at this time, but was going to get up and brush his teeth.
[2020-11-01 11:38] VITALS: BP 131/63; PULSE 59; TEMP 97.9
--- NOTE | 2020-11-01 15:04 | NUR ---
Patient worked with therapy & ambulated halls. Continues to have good castaneda output. His family at bedside. Benydryl & eye drops per patient request. Reports dry & itchy eyes. He is now resting. Will monitor
[2020-11-01 15:31] VITALS: BP 140/59; PULSE 63; TEMP 97.4
--- NOTE | 2020-11-01 17:15 | NUR ---
Dinner ordered. Insulin per sliding scale. post op shoe at bedside per orders. Int. Marialuisa to LEELEE. Will monitor.
--- NOTE | 2020-11-01 18:24 | NUR ---
Patient did well with dinner. He is concerned constipation is going to become a problem. Asya Hawthorne notifed. Orders obatained. Will report off to nightnurse.
[2020-11-01 19:38] VITALS: BP 157/62; PULSE 63; TEMP 98.2
--- NOTE | 2020-11-01 21:15 | NUR ---
Pt. sitting up in bed. Pt. is a&OX3, assessment complete. INT to rt. forearm patent. Brace and rolando wrap to rt. wrist patent. Pt. denies pain or other needs, call light within reach.
[2020-11-02] VITALS: BP 150/71; PULSE 98; TEMP 98.6
[2020-11-02 04:00] VITALS: BP 128/54; PULSE 63; TEMP 98.3
[2020-11-02 07:50] VITALS: BP 148/57; PULSE 61; TEMP 98.9
[2020-11-02 11:14] LABS: BASO # 0.1 (0.0-0.2); BASO % 0.5 % (0.0-2.0); EOS # 0.3 (0.0-0.7); EOS % 2.6 % (0-4.0); GRAN # 7.7 (1.4-6.5); GRAN % 70.5 % (42.2-75.2); HEMATOCRIT 34.4 % (42.0-52.0); HEMOGLOBIN 11.5 g/dl (13.5-18.0); LYMPH # 1.7 (1.2-3.4); LYMPH % 15.8 % (20.0-51.0); MEAN CELL VOLUME 90 fl (80.0-100.0); MEAN CORPUSCULAR HEMOGLOBIN 30 pg (27.0-31.0); MEAN CORPUSCULAR HGB CONC 33 g/dl (33.0-37.0); MEAN PLATELET VOLUME 9.3 fl (7.4-10.4); MONO # 1.1 (0.1-0.6); MONO % 9.8 % (1.7-9.3); PLATELET COUNT 338 K/mm3 (130-400); RED BLOOD COUNT 3.84 M/mm3 (4.20-5.60); REDCELL DISTRIBUTION WIDTH-CV 13.2 % (11.5-14.5)
[2020-11-02 11:21] LABS: CALCIUM 8.6 mg/dL (8.4-10.2); CREATININE, serum 1.85 (0.66-1.25)
--- NOTE | 2020-11-02 12:05 | NUR ---
ELIZABETH-LEFT 0.9 RIGHT NON COMPRESSABLE. KISHAN FROM VASCULAR ASSIST WITH THIS TESTING TO BE COMPLETED. LEXI JOEL MADE AWARE & VOICEMAIL LEFT FOR CARDIOLOGY.
[2020-11-02 12:13] VITALS: BP 125/71; PULSE 72; TEMP 98.6
--- NOTE | 2020-11-02 12:18 | NUR ---
First visit from the physician in private practice. No needs right now.
--- NOTE | 2020-11-02 14:36 | NUR ---
The patient is to have an MRI today, which will determine course of treatment. Per ortho's note, if the patient has osteo, he would want to proceed with an amputation. If not osteo, he may need IV antiobiotics. SW to continue to follow.
--- NOTE | 2020-11-02 16:01 | NUR ---
frog or oyster farmworker met with patient and spouse and discussed discharge planning. Patient verbalized that he is extremely relieved that he won't have to have an amputation. Home health was discussed, however, patient will not qualify and does not feel that he will need this level of care upon discharge. Patient continues plan of returning home upon discharge.
[2020-11-02 17:05] VITALS: BP 127/50; PULSE 76; TEMP 98
--- NOTE | 2020-11-02 19:45 | NUR ---
Patient independent in room. MRI was completed this afternoon. Hospitalist Raysa Coelho reviewed with patient. called and orders obtained. boiler house supervisor Dejah made aware of OR orders. Left voicemail with anesthesia. Consent obtained & patient aware he will be NPO at midnight. Patient did get tylenol this afternoon for pain, reports MRI caused pain to his wrist from holding arm upright. Blood sugars continue to be managed well with insulin regiment. Patient has denied nausea today. Cardiology rounded & echo completed. Bedside report to night nurse.
[2020-11-02 19:55] VITALS: BP 155/67; PULSE 81; TEMP 98.4
--- NOTE | 2020-11-02 20:30 | NUR ---
PT IN BED. TAKES HS MEDS WITHOUT PROBLEM. HAS SL TO RIGHT AC, FLUSHES WELL. HAS RT FOREARM IN SPLINT, FINGERS WARM TO TOUCH, MOVES WITHOUT DIFFICULTY. PT WANTS ONLY TO TAKE LEVEMIR 10 UNITS TONIGHT, TAKES NOVOLOG 4 UNITS. WILL HAVE RECHECK OF BS AT MIDNIGHT. PT AWARE HE WILL BE NPO AFTER MIDNIGHT. DRSG TO LEFT FOOT AND RT CASTRO CHANGED. DENIES NEED FOR PAIN MEDS AT THIS TIME.
[2020-11-03] VITALS (12 sets, daily range): BP systolic 109–158; BP diastolic 49–92; PULSE 67–88; TEMP 97.7–98.7
--- NOTE | 2020-11-03 | NUR ---
PT NPO FOR PROCEDURE IN AM.
--- NOTE | 2020-11-03 08:00 | NUR ---
Patient sitting up on edge of bed. Alert and oriented x 3. Assessment complete. Denies pain at this time. Elam to DD with clear yellow urine present. Edema to BLE noted. Ortho shoe to left foot, ulcer to left foot with dressing in place. Right alvarenga abrasion noted with gauze. Right arm with splint in place. Denies pain or further needs at this time.
[2020-11-03 08:17] LABS: BASO # 0.1 (0.0-0.2); BASO % 0.5 % (0.0-2.0); EOS # 0.3 (0.0-0.7); EOS % 2.9 % (0-4.0); GRAN # 7.7 (1.4-6.5); GRAN % 70.8 % (42.2-75.2); HEMOGLOBIN 11.7 g/dl (13.5-18.0); LYMPH # 1.6 (1.2-3.4); LYMPH % 14.5 % (20.0-51.0); MEAN CELL VOLUME 88 fl (80.0-100.0); MEAN CORPUSCULAR HEMOGLOBIN 30 pg (27.0-31.0); MEAN CORPUSCULAR HGB CONC 34 g/dl (33.0-37.0); MEAN PLATELET VOLUME 9.9 fl (7.4-10.4); MONO # 1.1 (0.1-0.6); MONO % 10.4 % (1.7-9.3); RED BLOOD COUNT 3.94 M/mm3 (4.20-5.60); REDCELL DISTRIBUTION WIDTH-CV 13.3 % (11.5-14.5)
[2020-11-03 09:06] LABS: CALCIUM 8.6 mg/dL (8.4-10.2); CREATININE, serum 1.71 (0.66-1.25); POTASSIUM 4.3 mmol/L (3.4-5.0)
[2020-11-03 09:17] LABS: HEMATOCRIT 34.8 % (42.0-52.0); PLATELET COUNT 234 K/mm3 (130-400)
--- NOTE | 2020-11-03 10:17 | NUR ---
SW met with the patient to follow up. Ortho plans to take the patient to the OR today at 1400 for I&D of his left foot. The patient states that he is just trying to get some rest before the procedure. He reports that he still plans on returning home with his upon discharge. He had no questions for concerns for SW at this time. *Discharge plan: home with *
--- NOTE | 2020-11-03 14:54 | NUR ---
Patient to OR by bed.
--- NOTE | 2020-11-03 16:32 | NUR ---
Patient up from OR. Alert and oriented. Dressing to RLE is CDI. Post op VSS. Post op fluids infusing. No further needs at this time.
--- NOTE | 2020-11-03 18:40 | NUR ---
Patient doing well post op. Denies pain at this time. Will report off to assistant shift supervisor.
--- NOTE | 2020-11-03 20:15 | NUR ---
Pt. sitting up in bed. Pt. is a&OX3, assessment complete. INT to rt. ac patent. Dressing to lt. foot CDi. Brace and rolando to rt. wrist intact. Pt. denies pain or other needs, call light within reach.
[2020-11-04] VITALS (7 sets, daily range): BP systolic 122–156; BP diastolic 50–62; PULSE 65–89; TEMP 97.9–98.8
[2020-11-04 07:51] LABS: CALCIUM 8.1 mg/dL (8.4-10.2); CREATININE, serum 1.88 (0.66-1.25)
[2020-11-04 14:52] LABS: BASO # 0.1 (0.0-0.2); BASO % 0.5 % (0.0-2.0); EOS # 0.2 (0.0-0.7); EOS % 1.9 % (0-4.0); GRAN # 9.2 (1.4-6.5); GRAN % 73.9 % (42.2-75.2); HEMATOCRIT 31.9 % (42.0-52.0); HEMOGLOBIN 10.6 g/dl (13.5-18.0); LYMPH # 1.6 (1.2-3.4); LYMPH % 12.8 % (20.0-51.0); MEAN CELL VOLUME 89 fl (80.0-100.0); MEAN CORPUSCULAR HEMOGLOBIN 30 pg (27.0-31.0); MEAN CORPUSCULAR HGB CONC 33 g/dl (33.0-37.0); MEAN PLATELET VOLUME 9.1 fl (7.4-10.4); MONO # 1.3 (0.1-0.6); MONO % 10.3 % (1.7-9.3); PLATELET COUNT 332 K/mm3 (130-400); RED BLOOD COUNT 3.59 M/mm3 (4.20-5.60); REDCELL DISTRIBUTION WIDTH-CV 13.3 % (11.5-14.5)
--- NOTE | 2020-11-04 15:53 | NUR ---
SW received a note from PT stating that they recommend a 4WW. KAREN met with the patient to inform him of PT's recommendation. The patient is interested in getting a 4WW, but would like to know if he will have any out of pocket costs. He would like to go ahead and try and get the rollator from [facility], since they deliver up to the hospital. KAREN attempted to contact [facility]. KAREN left them a voicemail and faxed and emailed the order to Raysa at [facility].
--- NOTE | 2020-11-04 18:35 | NUR ---
PATIENT HAD UNEVENTFUL DAY. PATIENT TO BE FITTED FOR WRIST BRACE TOMORROW. DAWSON CATHETER TO DEPENDENT DRAINAGE. CALL LIGHT WITHIN REACH. PATIENT EATING DINNER TRAY. WILL REPORT OFF TO ONCOMING NURSE.
--- NOTE | 2020-11-04 21:30 | NUR ---
Pt. sitting up in bed. Pt. is a&OX3, assessment complete. INT to rt. ac patent. Pt. denies pain or other needs. Pt. refuse insulin this evening. Pt. denies further needs, call light within reach.
[2020-11-05 04:15] VITALS: BP 127/63; PULSE 69; TEMP 98.1
[2020-11-05 07:32] VITALS: BP 133/57; PULSE 73; TEMP 98.9
[2020-11-05] MEDS ORDERED: COZAAR 25MG25 MG/TAB PO (11:03)
[2020-11-05] MEDS ORDERED: COLACE 100100 MG/CAP PO (11:04)
[2020-11-05] MEDS ORDERED: NOVLOG SQ (11:16)
[2020-11-05] MEDS ORDERED: AMOXICILLIN 8751 TAB PO (11:18)
[2020-11-05] MEDS ORDERED: NORVASC 5MG5 MG/TAB PO (11:19)
[2020-11-05] MEDS ORDERED: LEVEMIR FLEX100 U/ML SQ (11:20)
--- NOTE | 2020-11-05 11:59 | NUR ---
KAREN attended clinical rounds. The patient is ready to d/c today and the hospitalist discussed having home health to help with his wound and the castaneda catheter. The patient was interested in home health. KAREN then followed up with the patient and informed him of the different agencies that take Medicare [employer]. The patient was open to any home health agency. KAREN contacted and faxed a referral to Laverne at [facility]. Awaiting screen. KAREN also presented and read the IM form outloud to the patient. The patient verbalized understanding and gave KAREN approval to sign the form on his behalf. SW provided him with a copy. [facility] also delivered the 4WW to the patient's room.
[2020-11-05 12:00] VITALS: BP 133/62; PULSE 75; TEMP 97.7
--- NOTE | 2020-11-05 13:14 | NUR ---
Laverne, at [facility], reports that they are able to accept the patient for services and will visit him on Monday. SW updated the patient. The patient is to discharge back home today, 11/05, with home health services for retirement/PT/OT/wound care from [facility]. KAREN notified and faxed d/c orders to Laverne at [facility]. No additional needs at this time.
--- NOTE | 2020-11-05 14:54 | NUR ---
PATIENTS INT DISCONTINUED PER PENDING DISCHARGE. LEFT FOOT WOUND DRESSING REMOVED AND REPLACED WITH A WET TO DRY DRESSING PER ORTHO. LEFT FOOT DRESSED WITH SALINE SOAKED TELFA, 4X4 GAUZE, SOFT ROLL AND JEREMI WRAP. BOOT RE-APPLIED. DISCHARGE INSTRUCTIONS REVIEWED WITH PATIENT. QUESTIONS SOUGHT AND ANSWERED. PATIENT PERSONAL BELONGINGS GATHERED. AWAITING RIDE FOR DISCHARGE. DR. SHEPPARD PRESENT IN ROOM.
== END 2020-11-05 15:35 | disposition home health service (06) | DRG 623 ==
LOC: COL.ER 11:03 → SURG 15:41
PROVIDERS: Orthopaedic Surgery; Physician Assistant; ADMIT Hospitalist
PROC: 0JBR0ZZ Excision of Left Foot Subcutaneous Tissue and Fascia, Open Approach (ICD-10-PCS; principal; 2020-11-03 15:00)
DX: E11.621 Type 2 diabetes mellitus with foot ulcer (principal); S52.511A Displaced fracture of right radial styloid process, initial encounter for closed fracture; E87.1 Hypo-osmolality and hyponatremia; I48.20 Chronic atrial fibrillation, unspecified; I13.0 Hypertensive heart and chronic kidney disease with heart failure and stage 1 through stage 4 chronic kidney disease, or unspecified chronic kidney disease; I50.30 Unspecified diastolic (congestive) heart failure; N40.0 Benign prostatic hyperplasia without lower urinary tract symptoms; E78.5 Hyperlipidemia, unspecified; E11.40 Type 2 diabetes mellitus with diabetic neuropathy, unspecified; L97.529 Non-pressure chronic ulcer of other part of left foot with unspecified severity; E11.22 Type 2 diabetes mellitus with diabetic chronic kidney disease; J45.909 Unspecified asthma, uncomplicated; Z96.653 Presence of artificial knee joint, bilateral; I48.91 Unspecified atrial fibrillation; E78.00 Pure hypercholesterolemia, unspecified; E66.01 Morbid (severe) obesity due to excess calories; E11.42 Type 2 diabetes mellitus with diabetic polyneuropathy; E11.65 Type 2 diabetes mellitus with hyperglycemia; Z95.0 Presence of cardiac pacemaker; Z79.899 Other long term (current) drug therapy; Z90.49 Acquired absence of other specified parts of digestive tract; Z98.52 Vasectomy status
CPT/HCPCS: OP; 99232-AI; 99233-AI; 99239; G0378; J1644; J1815; J2405; J2543; J2704; J3010; J3370; J7030; J7040; J7120

== ENCOUNTER 2020-12-28 11:49 | Observation (INO) | payer MEDICARE ==
[~2020-12-28] VITALS: Ht 172.7 cm; Wt 119.5 kg
[~2020-12-28 11:49] MED LIST changes: +LEVEMIR FLEX100 U/ML SQ
[2020-12-28 14:22] LABS: BASO # 0.1 (0.0-0.2); BASO % 0.3 % (0.0-2.0); EOS # 0.1 (0.0-0.7); EOS % 0.5 % (0-4.0); GRAN # 11.8 (1.4-6.5); HEMOGLOBIN 11.5 g/dl (13.5-18.0); LYMPH # 1.9 (1.2-3.4); LYMPH % 12.5 % (20.0-51.0); MEAN CELL VOLUME 88 fl (80.0-100.0); MEAN CORPUSCULAR HEMOGLOBIN 29 pg (27.0-31.0); MEAN CORPUSCULAR HGB CONC 32 g/dl (33.0-37.0); MEAN PLATELET VOLUME 9.4 fl (7.4-10.4); MONO # 1.3 (0.1-0.6); MONO % 8.3 % (1.7-9.3); PLATELET COUNT 289 K/mm3 (130-400); RED BLOOD COUNT 4.03 M/mm3 (4.20-5.60); REDCELL DISTRIBUTION WIDTH-CV 14.3 % (11.5-14.5)
[2020-12-28 14:24] LABS: HEMATOCRIT 35.5 % (42.0-52.0)
[2020-12-28 14:34] LABS: ALBUMIN 3.8 gm/dL (3.5-5.0); BILIRUBIN,TOTAL 1.5 mg/dL (0.0-1.0); CALCIUM 9.4 mg/dL (8.4-10.2); CREATININE, serum 3.51 (0.66-1.25); POTASSIUM 3.5 mmol/L (3.4-5.0); TOTAL PROTEIN 7.3 gm/dL (6.4-8.2)
[2020-12-28 14:47] LABS: C-REACTIVE PROTEIN 16.9 mg/dL (0.0-0.9)
[2020-12-28 17:36] VITALS: BP 125/54; PULSE 67; TEMP 98
--- NOTE | 2020-12-28 18:15 | NUR ---
Patient admitted from the ER. Awake & alert. ID consult called to Dr. Santiago. Ivf per orders. Vancomycin complete. Dinner orders. Will report off to nightnurse.
[2020-12-28 19:02] VITALS: BP 142/59; PULSE 70; TEMP 97.5
--- NOTE | 2020-12-28 19:44 | NUR ---
PATIENT RESTING IN BED. ALERT AND ORIENTED X4. REPORT 3/10 TROBBING PAIN. ON TELE MONITORING, VSS. TOLERATED DIET WELL. PRESENTED WITH LEFT FOOT CELLULITIS. SKIN WARM TO TOUCH. IMANI LE WITH + 2 EDEMA. CALL LIGHT IN REACH, BED IN LOW POSITION. PLAN TO INSERT DAWSON CATHETER FOR RETENTION. WILL CONTINUE TO MONITOR.
[2020-12-28 20:30] VITALS: BP 142/59; PULSE 70; TEMP 97.5
--- NOTE | 2020-12-28 21:48 | NUR ---
DAWSON CATHETER INSERTED WITHOUT DIFFICULTIES. PATIENT TOLERATED PROCEDURE WELL. WILL CONTINUE TO MONITOR.
[2020-12-28 23:28] VITALS: BP 109/40; PULSE 75; TEMP 98.4
[2020-12-29 04:04] VITALS: BP 133/52; PULSE 57; TEMP 98.6
[2020-12-29 07:43] VITALS: BP 131/47; PULSE 85; TEMP 98.6
--- NOTE | 2020-12-29 07:46 | NUR ---
Vancomycin Initial Dosing Pharmacy Note Ordering provider: Kenny Bravo MD Indication/duration: CELLULITS/DIABETIC FOOT INFECTION Relevant comorbidities: DM LABS: WBC 15.1, SCR 3.5, CRCL ~20 Recommendation: VANCOMYCIN 10MG/KG Loading dose: 1.5 grams Maintenance dose: 1.25 grams every 24 hours Trough goal: 15ug/mL. TROUGH 12/31 @1530, BEFORE 4TH DOSE D/T RENAL FXN
[2020-12-29 08:13] LABS: BASO # 0.1 (0.0-0.2); BASO % 0.4 % (0.0-2.0); EOS # 0.1 (0.0-0.7); EOS % 0.6 % (0-4.0); GRAN # 9.3 (1.4-6.5); HEMATOCRIT 32.4 % (42.0-52.0); HEMOGLOBIN 10.6 g/dl (13.5-18.0); LYMPH # 1.2 (1.2-3.4); LYMPH % 10.2 % (20.0-51.0); MEAN CELL VOLUME 88 fl (80.0-100.0); MEAN CORPUSCULAR HEMOGLOBIN 29 pg (27.0-31.0); MEAN CORPUSCULAR HGB CONC 33 g/dl (33.0-37.0); MEAN PLATELET VOLUME 9.3 fl (7.4-10.4); MONO # 1.1 (0.1-0.6); MONO % 9.1 % (1.7-9.3); PLATELET COUNT 288 K/mm3 (130-400); REDCELL DISTRIBUTION WIDTH-CV 13.9 % (11.5-14.5)
[2020-12-29 08:26] LABS: CALCIUM 8.6 mg/dL (8.4-10.2); CREATININE, serum 2.65 (0.66-1.25); MAGNESIUM 2.1 mg/dL (1.6-2.3); POTASSIUM 3.5 mmol/L (3.4-5.0)
[2020-12-29 11:41] VITALS: BP 140/67; PULSE 76; TEMP 98.2
--- NOTE | 2020-12-29 12:00 | NUR ---
First visit from the variety lathe operator. prayed with patient. No other needs right now.
--- NOTE | 2020-12-29 14:56 | NUR ---
Patient to MRI by wheelchair.
[2020-12-29 16:00] VITALS: BP 149/57; PULSE 77; TEMP 97.9
--- NOTE | 2020-12-29 18:31 | NUR ---
Patient doing well throughout the day. Bed bath provided today, linens changed. Elam maintained to DD with clear yellow urine present; was red-tinged this AM. Antibiotics and fluids infusing to RAC. Wound to right calf, dressing changed. Patient also has wound to plantar aspect of left foot and second toe.
[2020-12-29 19:35] VITALS: BP 148/57; PULSE 71; TEMP 98.5
[2020-12-30 00:18] VITALS: BP 140/53; PULSE 70; TEMP 98.2
[2020-12-30 03:31] VITALS: BP 150/52; PULSE 69; TEMP 98.4
--- NOTE | 2020-12-30 06:22 | NUR ---
PATIENT HAS NO EVENT OVERNIGT. VSS. DAWSON CATHETER WITH CLEAR YELLOW URINE. IV ABX GIVEN ORDERED. IMANI LE SWELLING WARM TO TOUCH FAINT PETAL PULSES. BLOOD SUGAR 301 LAST COVER PER SLIDING SCALE. THE MORNING BLOOD SUGAR 171. CONTINUE ON IVF ORDERED. CALL WITHIN REACH. WILL CONTINUE TO MONITOR.
[2020-12-30 06:54] LABS: MEAN CELL VOLUME 88 fl (80.0-100.0); MEAN CORPUSCULAR HGB CONC 33 g/dl (33.0-37.0); MEAN PLATELET VOLUME 9.8 fl (7.4-10.4); PLATELET COUNT 290 K/mm3 (130-400); REDCELL DISTRIBUTION WIDTH-CV 13.7 % (11.5-14.5)
[2020-12-30 06:57] LABS: HEMOGLOBIN 9.5 g/dl (13.5-18.0); MEAN CORPUSCULAR HEMOGLOBIN 29 pg (27.0-31.0)
--- NOTE | 2020-12-30 07:00 | NUR ---
Report received from KERRY Soares. PT in bed resting with eyes closed, will continue to [facility].
[2020-12-30 07:08] LABS: CALCIUM 8.2 mg/dL (8.4-10.2); CREATININE, serum 1.91 (0.66-1.25); POTASSIUM 3.4 mmol/L (3.4-5.0)
[2020-12-30 07:12] VITALS: BP 151/59; PULSE 86; TEMP 98.7
[2020-12-30 07:59] LABS: BAND 2 % (0-10); EOSINOPHIL 5 % (0-4); LYMPHOCYTE 17 % (20.0-51.0); NEUTROPHILS 70 % (42.0-75.2)
[2020-12-30 08:00] LABS: PLATELET ESTIMATE NORMAL (NORMAL)
--- NOTE | 2020-12-30 09:45 | NUR ---
Assessment charted. Pt doing well, L foot dressing changed with telfa and mepilex per pt request. Pt states he feels hort of breath, will relay to hospitalist. Denies needs, resting in bed, INT to RFA. Will continue to monitor.
[2020-12-30 11:36] VITALS: BP 133/59; PULSE 73; TEMP 98.4
[2020-12-30 12:00] LABS: ARTERIAL BLD GAS O2 SATURATION 97.2 % (92-100); ARTERIAL BLD GAS TCO2 CT 25.5; ARTERIAL BLOOD GAS BASE EXCESS 1.3 (-2-2); ARTERIAL BLOOD GAS HCO3 24.4 meq/L (22-26); ARTERIAL BLOOD GAS PO2 91.9 mmHg (80-100); ARTERIAL BLOOD GAS pH 7.47 (7.35-7.45)
--- NOTE | 2020-12-30 14:54 | NUR ---
Extrusion Utility Worker met with the patient to complete intake. The patient lives in [place] with his , Consuelo and their son, Blayne. The patient has a knee walker and reports independence. The patient's PCP is Isabella Mckinley at [facility] in and receives medications from [facility] or [facility] when able. The patient does not have advanced directives but was interested in DPOA-HC form. Form provided. The patient plans to return home with continued wound care at clinic. The patient has declined home health services. The patient currently gets wound care at [facility] at [facility] for the time being. The patient is interested in setting up wound care at [facility] on [address] in [place]. KAREN contacted the patient's , Consuelo to discuss the discharge plan. She was in agreeance with the patient returning home and declined HH as well. They would like to set up wound care in [place]. KAREN contacted Acacia at [facility]. She reports they do not have openings until mid-January and the patient would need to continue to go to [facility] to receives wound care until the patient could have his first appointment. Referral faxed. KAREN contacted [facility] and they confirmed that the last appointment the patient attended was on 12/28. KAREN faxed updates to Rosaline. The patient discharged on 11/05/20 with [facility]. KAREN contacted Dipika with [place] and she reports that the patient's PCP did not approve home health. The patient at the time was interested in OP PT instead. [facility] did not see the patient for home health services. *Discharge disposition at this time: home with spouse and continued outpatient wound at [facility] and transition to [facility] in [place] mid-January* care*
[2020-12-30 16:00] VITALS: BP 152/65; PULSE 77; TEMP 98.8
--- NOTE | 2020-12-30 17:42 | NUR ---
Pt had good day, up to shower, doing well, understands need to get antibiotics IV. Denies needs, will give bedside shif treport to nightshift nurse who will resume care.
[2020-12-30 19:13] VITALS: BP 144/77; PULSE 82; TEMP 99
--- NOTE | 2020-12-30 19:37 | NUR ---
REPORT RECEIVED FROM NURSE STEPHANIE. PATIENT RESTING IN BED IN NO DISTRESS. ALERT AND ORIENTED X4. DENIES ANY DISCOMFORT AT THIS TIME. IVF SALINE LOCKED. IMANI LE SWELLING. LEFT LEG CELLULITIS REDDENED DRESSING C/D/I. DAWSON CATHETER TO GRAVITY WITH CLEAR YELLOW URINE. CALL LIGHT WITHIN REACH. WILL CONTINUE TO MONITOR.
[2020-12-31 00:05] VITALS: BP 152/58; PULSE 81; TEMP 98
[2020-12-31 03:51] VITALS: BP 141/55; PULSE 75; TEMP 98.5
[2020-12-31 07:49] LABS: HEMOGLOBIN 10.2 g/dl (13.5-18.0); MEAN CELL VOLUME 89 fl (80.0-100.0); MEAN CORPUSCULAR HEMOGLOBIN 29 pg (27.0-31.0); MEAN CORPUSCULAR HGB CONC 33 g/dl (33.0-37.0); MEAN PLATELET VOLUME 9.1 fl (7.4-10.4); PLATELET COUNT 299 K/mm3 (130-400); RED BLOOD COUNT 3.47 M/mm3 (4.20-5.60); REDCELL DISTRIBUTION WIDTH-CV 13.6 % (11.5-14.5)
[2020-12-31 07:50] LABS: HEMATOCRIT 30.7 % (42.0-52.0)
[2020-12-31 08:01] LABS: CALCIUM 8.6 mg/dL (8.4-10.2); CREATININE, serum 1.75 (0.66-1.25); POTASSIUM 3.8 mmol/L (3.4-5.0)
[2020-12-31 08:12] LABS: BAND 6 % (0-10); EOSINOPHIL 2 % (0-4); LYMPHOCYTE 9 % (20.0-51.0); NEUTROPHILS 79 % (42.0-75.2); PLATELET ESTIMATE NORMAL (NORMAL)
[2020-12-31 08:14] VITALS: BP 142/55; PULSE 82; TEMP 98.1
--- NOTE | 2020-12-31 10:30 | NUR ---
Patient alert and oriented, answers questions appropriately. See assessment. LLE with 2+ edema noted. Left foot with redness noted, no open areas. Elam catheter in place, patent, draining clear yellow urine. No c/o at this time.
--- NOTE | 2020-12-31 10:51 | NUR ---
Ship Officer contacted Acacia with [facility] and she states she is going to review the patient's case then contact him regarding setting up wound care services.
[2020-12-31 11:10] VITALS: BP 142/55; PULSE 67; TEMP 98.1
[2020-12-31] MEDS ORDERED: OMNICEF 300MG300 MG PO (11:17)
--- NOTE | 2020-12-31 14:09 | NUR ---
[facility] form filled out with KAREN Story. Attempted to answer patient's questions as best I could. Offered by contact information if questions arise after d/c. [place] [employer] form given to patient and original filed in patient chart.
--- NOTE | 2020-12-31 14:25 | NUR ---
Discharge instructions reviewed with patient, verbalized understanding. Discharged via wheelchair to auto/home with spouse at 1425.
--- NOTE | 2020-12-31 14:37 | NUR ---
[employer] attended clinical rounds with the team. The patient to discharge home today, 12/31 with spouse and son. The patient will be having OP wound care at [facility] until Ac[facility] with [facility] can set up appointment for the patient, which may be mid-January. Discharge orders faxed. KAREN and Gricelda PAYNECM met with the patient to present the [employer] forms. The patient signed the form, copies provided. He states he is going to contact the insurance since he does not agree. There are no additional needs. *Discharge disposition: Home with OP wound care*
--- NOTE | 2021-01-18 14:55 | NUR ---
Patient called KAREN to report that he has not received phone call back from [facility]. KAREN contacted [facility] and confirmed patient was dischared for noncompliance with appointments/care. KAREN contacted patient's primary care office, spoke with primary care physicians nurse about patient being non compliant with [facility] appointments/care. Patient has appointment scheduled with primary care on 01/19 at 3:40pm and they will discuss wound care at this time. KAREN called patient back to let him know that his wound care will be addressed at this appointment to which the patient understood.
== END 2020-12-31 14:25 | disposition home or self-care (01) ==
LOC: COL.ER 11:49 → SURG 15:39
PROVIDERS: Emergency Medicine; Physician Assistant; ADMIT Student in an Organized Health Care Education/Training Program
DX: E11.621 Type 2 diabetes mellitus with foot ulcer (principal); L97.529 Non-pressure chronic ulcer of other part of left foot with unspecified severity; I13.0 Hypertensive heart and chronic kidney disease with heart failure and stage 1 through stage 4 chronic kidney disease, or unspecified chronic kidney disease; E11.22 Type 2 diabetes mellitus with diabetic chronic kidney disease; N18.30 Chronic kidney disease, stage 3 unspecified; I48.91 Unspecified atrial fibrillation; L03.116 Cellulitis of left lower limb; E87.1 Hypo-osmolality and hyponatremia; I50.30 Unspecified diastolic (congestive) heart failure; D63.1 Anemia in chronic kidney disease; I25.10 Atherosclerotic heart disease of native coronary artery without angina pectoris; E78.5 Hyperlipidemia, unspecified; J45.909 Unspecified asthma, uncomplicated; Z85.51 Personal history of malignant neoplasm of bladder; Z79.4 Long term (current) use of insulin; Z79.899 Other long term (current) drug therapy
CPT/HCPCS: 99223-AI; 99232-AI; 99239; A9585; G0378; J0692; J1644; J1815; J3370; J7030; J7050

== ENCOUNTER → 2021-06-08 | Outpatient (CLI) | payer MEDICARE ==
[~2021-06-08] MED LIST changes: +OMNICEF 300MG300 MG PO
[2021-06-08 18:31] LABS: COLLECTION METHOD CATHETER
[2021-06-08 18:55] LABS: PH 8 (5-8); SQUAMOUS EPITHELIAL None Seen /hpf (0-10); URINE APPEARANCE Cloudy (CLEAR/HAZY); URINE BACTERIA None Seen /hpf (NONE SEEN); URINE BILIRUBIN Negative (NEGATIVE); URINE BLOOD 3+ (NEGATIVE); URINE COLOR Red (YELLOW); URINE GLUCOSE 1+ (NEGATIVE); URINE KETONE Negative (NEGATIVE); URINE LEUKOCYTE ESTERASE Negative (NEGATIVE); URINE NITRATE Negative (NEGATIVE); URINE PROTEIN(semi-quant) 2+ (NEGATIVE); URINE RBC >50 /hpf (0-2); URINE UROBILINOGEN Negative (NEGATIVE)
== END ==
LOC: ZLAB.STJ 17:43
PROVIDERS: Internal Medicine
DX: R82.79 Other abnormal findings on microbiological examination of urine (principal)

== ENCOUNTER → 2021-06-29 | Outpatient (CLI) | payer MEDICARE ==
[~2021-06-29] MED LIST changes: +AMMONIUM LACTATE TP; +CLARITIN 1010 MG/TAB PO; +CUBICIN 500MG500 MG IV; +FLORASTOR250 MG PO; +HUMULIN R 10100 U/ML SQ; +K-TAB20 PO; +KLONOPIN 0.5MG0.5 MG PO; +LANTUS SOLOS100 U/ML SQ; +MAG-AL LIQUID 230 ML PO; +MELATONIN3 M1 PO; +MIRALAX PA17 GM/Dose PO; +PROTONIX 40MG T40 MG PO; +TAZICEF2 GM IJ; +TYLENOL 325MG325 MG PO; +ZAROXOLYN 2.52.5 MG PO
[2021-06-29 13:42] LABS: BASO # 0.1 K/mm3 (0.0-0.2); BASO % 0.6 % (0.0-2.0); EOS # 0.7 K/mm3 (0.0-0.7); EOS % 5.6 % (0.0-4.0); GRAN # 8.9 K/mm3 (1.4-6.5); GRAN % 67.2 % (42.2-75.2); HEMATOCRIT 37.2 % (42.0-52.0); HEMOGLOBIN 11.9 g/dl (13.5-18.0); LYMPH # 2.1 K/mm3 (1.2-3.4); LYMPH % 15.9 % (20.0-51.0); MEAN CELL VOLUME 89 fl (80.0-100.0); MEAN CORPUSCULAR HEMOGLOBIN 29 pg (27-31); MEAN CORPUSCULAR HGB CONC 32 g/dl (33.0-37.0); MEAN PLATELET VOLUME 10.2 fl (7.4-10.4); MONO # 1.3 K/mm3 (0.1-0.6); MONO % 10.1 % (1.7-9.3); PLATELET COUNT 337 K/mm3 (130-400); RED BLOOD COUNT 4.18 M/mm3 (4.20-5.60); REDCELL DISTRIBUTION WIDTH-CV 14.2 % (11.5-14.5)
[2021-06-29 14:02] LABS: ERYTHROCYTE SEDIMENTATION RATE 37 mm/hr (0-30)
== END ==
LOC: ZLAB.STJ 13:29
PROVIDERS: Internal Medicine
DX: I10 Essential (primary) hypertension (principal); Z01.89 Encounter for other specified special examinations

== ENCOUNTER 2021-06-30 08:35 | Outpatient (CLI) | payer MEDICARE ==
[~2021-06-30] VITALS: Ht 172.7 cm; Wt 116.2 kg
[~2021-06-30 08:35] MED LIST changes: -AMMONIUM LACTATE TP; -CLARITIN 1010 MG/TAB PO; -CUBICIN 500MG500 MG IV; -FLORASTOR250 MG PO; -HUMULIN R 10100 U/ML SQ; -K-TAB20 PO; -KLONOPIN 0.5MG0.5 MG PO; -LANTUS SOLOS100 U/ML SQ; -MAG-AL LIQUID 230 ML PO; -MELATONIN3 M1 PO; -MIRALAX PA17 GM/Dose PO; -PROTONIX 40MG T40 MG PO; -TAZICEF2 GM IJ; -TYLENOL 325MG325 MG PO; -ZAROXOLYN 2.52.5 MG PO
[2021-06-30 10:00] VITALS: BP 178/93; PULSE 74; TEMP 97.9
[2021-06-30] MEDS ORDERED: TYLENOL 325MG325 MG PO (14:59)
[2021-06-30] MEDS ORDERED: COLACE 100100 MG/CAP PO (15:01)
[2021-06-30] MEDS ORDERED: MAG-AL LIQUID 230 ML PO (15:01)
[2021-06-30] MEDS ORDERED: CLARITIN 1010 MG/TAB PO (15:02)
[2021-06-30] MEDS ORDERED: ZAROXOLYN 2.52.5 MG PO (15:03)
[2021-06-30] MEDS ORDERED: PROTONIX 40MG T40 MG PO (15:03)
[2021-06-30] MEDS ORDERED: MIRALAX PA17 GM/Dose PO (15:04)
[2021-06-30] MEDS ORDERED: ULTRAM 50MG TAB50 MG PO (15:05)
[2021-06-30] MEDS ORDERED: K-TAB20 PO (15:05)
[2021-06-30] MEDS ORDERED: ASPIRIN 81M81 MG/TA2 PO (15:06)
[2021-06-30] MEDS ORDERED: TRADJENTA5 MG PO (15:07)
[2021-06-30] MEDS ORDERED: NORVASC 10MG10 MG PO (15:08)
[2021-06-30] MEDS ORDERED: LANTUS SOLOS100 U/ML SQ (15:09)
[2021-06-30] MEDS ORDERED: MELATONIN3 M1 PO (15:09)
[2021-06-30] MEDS ORDERED: FLORASTOR250 MG PO (15:10)
[2021-06-30] MEDS ORDERED: KLONOPIN 0.5MG0.5 MG PO (15:10)
[2021-06-30] MEDS ORDERED: HUMULIN R 10100 U/ML SQ (15:11)
[2021-06-30] MEDS ORDERED: AMMONIUM LACTATE TP (15:11)
[2021-06-30] MEDS ORDERED: AMOXICILLIN 8751 TAB PO (15:13)
[2021-06-30] MEDS ORDERED: DOXYCYCLINE 10100 MG PO (15:13)
[2021-06-30] MEDS ORDERED: TAZICEF2 GM IJ (15:25)
[2021-06-30] MEDS ORDERED: CUBICIN 500MG500 MG IV (15:26)
== END 2021-06-30 15:29 ==
LOC: EUO 08:35
DX: Z45.2 Encounter for adjustment and management of vascular access device (principal); E11.69 Type 2 diabetes mellitus with other specified complication; E11.29 Type 2 diabetes mellitus with other diabetic kidney complication; M86.9 Osteomyelitis, unspecified; N19 Unspecified kidney failure
CPT/HCPCS: C1751

== ENCOUNTER → 2021-07-06 | Outpatient (CLI) | payer MEDICARE ==
[~2021-07-06] MED LIST changes: +AMMONIUM LACTATE TP; +CLARITIN 1010 MG/TAB PO; +CUBICIN 500MG500 MG IV; +FLORASTOR250 MG PO; +HUMULIN R 10100 U/ML SQ; +K-TAB20 PO; +KLONOPIN 0.5MG0.5 MG PO; +LANTUS SOLOS100 U/ML SQ; +MAG-AL LIQUID 230 ML PO; +MELATONIN3 M1 PO; +MIRALAX PA17 GM/Dose PO; +PROTONIX 40MG T40 MG PO; +TAZICEF2 GM IJ; +TYLENOL 325MG325 MG PO; +ZAROXOLYN 2.52.5 MG PO
[2021-07-06 18:51] LABS: BASO # 0.1 K/mm3 (0.0-0.2); BASO % 0.6 % (0.0-2.0); EOS # 0.5 K/mm3 (0.0-0.7); EOS % 4.7 % (0.0-4.0); GRAN # 7.2 K/mm3 (1.4-6.5); GRAN % 67.9 % (42.2-75.2); HEMOGLOBIN 12.5 g/dl (13.5-18.0); LYMPH # 1.9 K/mm3 (1.2-3.4); LYMPH % 17.7 % (20.0-51.0); MEAN CELL VOLUME 88 fl (80.0-100.0); MEAN CORPUSCULAR HEMOGLOBIN 28 pg (27-31); MEAN CORPUSCULAR HGB CONC 32 g/dl (33.0-37.0); MEAN PLATELET VOLUME 10.2 fl (7.4-10.4); MONO # 0.9 K/mm3 (0.1-0.6); MONO % 8.8 % (1.7-9.3); PLATELET COUNT 354 K/mm3 (130-400); RED BLOOD COUNT 4.43 M/mm3 (4.20-5.60); REDCELL DISTRIBUTION WIDTH-CV 14.3 % (11.5-14.5)
[2021-07-06 19:10] LABS: ERYTHROCYTE SEDIMENTATION RATE 44 mm/hr (0-30)
[2021-07-06 19:14] LABS: ALBUMIN 3.1 gm/dL (3.4-4.8); BILIRUBIN,TOTAL 0.7 mg/dL (0.2-1.2); CALCIUM 9.2 mg/dL (8.4-10.2); CREATININE, serum 2.07 mg/dL (0.72-1.25); POTASSIUM 4.1 mmol/L (3.5-4.5); TOTAL PROTEIN 7.2 gm/dL (6.2-8.1)
== END ==
LOC: ZLAB.STJ 17:13
PROVIDERS: Internal Medicine
DX: R68.89 Other general symptoms and signs (principal); Z79.899 Other long term (current) drug therapy; R70.0 Elevated erythrocyte sedimentation rate; R74.8 Abnormal levels of other serum enzymes

== ENCOUNTER → 2021-07-20 | Outpatient (CLI) | payer MEDICARE ==
[2021-07-20 18:05] LABS: BASO # 0.1 K/mm3 (0.0-0.2); BASO % 0.6 % (0.0-2.0); EOS # 0.9 K/mm3 (0.0-0.7); EOS % 8.1 % (0.0-4.0); GRAN # 7.7 K/mm3 (1.4-6.5); GRAN % 68.4 % (42.2-75.2); HEMATOCRIT 38.5 % (42.0-52.0); HEMOGLOBIN 12.5 g/dl (13.5-18.0); LYMPH # 1.7 K/mm3 (1.2-3.4); LYMPH % 14.8 % (20.0-51.0); MEAN CELL VOLUME 87 fl (80.0-100.0); MEAN CORPUSCULAR HEMOGLOBIN 28 pg (27-31); MEAN CORPUSCULAR HGB CONC 33 g/dl (33.0-37.0); MEAN PLATELET VOLUME 10.5 fl (7.4-10.4); MONO # 0.8 K/mm3 (0.1-0.6); MONO % 7.5 % (1.7-9.3); PLATELET COUNT 312 K/mm3 (130-400); RED BLOOD COUNT 4.45 M/mm3 (4.20-5.60); REDCELL DISTRIBUTION WIDTH-CV 14.3 % (11.5-14.5)
[2021-07-20 18:16] LABS: ALBUMIN 2.7 gm/dL (3.4-4.8); BILIRUBIN,TOTAL 0.5 mg/dL (0.2-1.2); C-REACTIVE PROTEIN 2.7 mg/dL (0.00-0.50); CALCIUM 9.2 mg/dL (8.4-10.2); CREATININE, serum 2.09 mg/dL (0.72-1.25); TOTAL PROTEIN 6.9 gm/dL (6.2-8.1)
[2021-07-20 18:35] LABS: ERYTHROCYTE SEDIMENTATION RATE 38 mm/hr (0-30)
== END ==
LOC: ZLAB.STJ 17:55
PROVIDERS: Internal Medicine Infectious Disease
DX: M86.8X7 Other osteomyelitis, ankle and foot (principal)

== ENCOUNTER → 2021-08-03 | Outpatient (CLI) | payer MEDICARE ==
[2021-08-03 13:13] LABS: ALBUMIN 2.8 gm/dL (3.4-4.8); BILIRUBIN,TOTAL 0.5 mg/dL (0.2-1.2); C-REACTIVE PROTEIN 1.33 mg/dL (0.00-0.50); CALCIUM 9.4 mg/dL (8.4-10.2); CREATININE, serum 1.66 mg/dL (0.72-1.25); POTASSIUM 4.4 mmol/L (3.5-4.5); TOTAL PROTEIN 6.7 gm/dL (6.2-8.1)
[2021-08-03 13:19] LABS: BASO # 0.1 K/mm3 (0.0-0.2); EOS # 0.5 K/mm3 (0.0-0.7); EOS % 4.6 % (0.0-4.0); ERYTHROCYTE SEDIMENTATION RATE 40 mm/hr (0-30); GRAN # 6.9 K/mm3 (1.4-6.5); GRAN % 66.1 % (42.2-75.2); HEMATOCRIT 38.2 % (42.0-52.0); HEMOGLOBIN 12.4 g/dl (13.5-18.0); LYMPH % 18.7 % (20.0-51.0); MEAN CELL VOLUME 87 fl (80.0-100.0); MEAN CORPUSCULAR HEMOGLOBIN 28 pg (27-31); MEAN CORPUSCULAR HGB CONC 33 g/dl (33.0-37.0); MEAN PLATELET VOLUME 9.8 fl (7.4-10.4); MONO # 0.9 K/mm3 (0.1-0.6); MONO % 8.9 % (1.7-9.3); PLATELET COUNT 333 K/mm3 (130-400); RED BLOOD COUNT 4.38 M/mm3 (4.20-5.60); REDCELL DISTRIBUTION WIDTH-CV 14.1 % (11.5-14.5)
== END ==
LOC: ZLAB.STJ 13:00
PROVIDERS: Internal Medicine
DX: Z13.228 Encounter for screening for other metabolic disorders (principal); R68.89 Other general symptoms and signs; R70.0 Elevated erythrocyte sedimentation rate; R79.89 Other specified abnormal findings of blood chemistry

== ENCOUNTER → 2021-08-10 | Outpatient (CLI) | payer MEDICARE ==
[2021-08-10 17:38] LABS: BASO # 0.1 K/mm3 (0.0-0.2); EOS # 0.3 K/mm3 (0.0-0.7); EOS % 2.4 % (0.0-4.0); GRAN # 8.5 K/mm3 (1.4-6.5); GRAN % 75.6 % (42.2-75.2); HEMATOCRIT 38.7 % (42.0-52.0); HEMOGLOBIN 12.9 g/dl (13.5-18.0); LYMPH # 1.3 K/mm3 (1.2-3.4); LYMPH % 11.9 % (20.0-51.0); MEAN CELL VOLUME 86 fl (80.0-100.0); MEAN CORPUSCULAR HEMOGLOBIN 29 pg (27-31); MEAN CORPUSCULAR HGB CONC 33 g/dl (33.0-37.0); MEAN PLATELET VOLUME 10.2 fl (7.4-10.4); MONO % 8.5 % (1.7-9.3); PLATELET COUNT 330 K/mm3 (130-400); REDCELL DISTRIBUTION WIDTH-CV 14.3 % (11.5-14.5)
[2021-08-10 17:49] LABS: ALBUMIN 3.1 gm/dL (3.4-4.8); BILIRUBIN,TOTAL 0.6 mg/dL (0.2-1.2); C-REACTIVE PROTEIN 1.06 mg/dL (0.00-0.50); CALCIUM 9.2 mg/dL (8.4-10.2); CREATININE, serum 2.16 mg/dL (0.72-1.25); POTASSIUM 4.4 mmol/L (3.5-4.5); TOTAL PROTEIN 6.7 gm/dL (6.2-8.1)
[2021-08-10 18:21] LABS: ERYTHROCYTE SEDIMENTATION RATE 18 mm/hr (0-30)
== END ==
LOC: ZLAB.STJ 16:57
PROVIDERS: Internal Medicine Infectious Disease
DX: M86.9 Osteomyelitis, unspecified (principal)

== ENCOUNTER → 2021-08-17 | Outpatient (CLI) | payer MEDICARE ==
[2021-08-17 15:15] LABS: BASO # 0.1 K/mm3 (0.0-0.2); BASO % 0.5 % (0.0-2.0); EOS # 0.3 K/mm3 (0.0-0.7); EOS % 3.5 % (0.0-4.0); GRAN # 7.2 K/mm3 (1.4-6.5); GRAN % 75.1 % (42.2-75.2); HEMATOCRIT 37.9 % (42.0-52.0); HEMOGLOBIN 12.8 g/dl (13.5-18.0); LYMPH # 1.1 K/mm3 (1.2-3.4); LYMPH % 11.9 % (20.0-51.0); MEAN CELL VOLUME 85 fl (80.0-100.0); MEAN CORPUSCULAR HEMOGLOBIN 29 pg (27-31); MEAN CORPUSCULAR HGB CONC 34 g/dl (33.0-37.0); MEAN PLATELET VOLUME 9.7 fl (7.4-10.4); MONO # 0.8 K/mm3 (0.1-0.6); MONO % 8.5 % (1.7-9.3); PLATELET COUNT 294 K/mm3 (130-400); RED BLOOD COUNT 4.44 M/mm3 (4.20-5.60); REDCELL DISTRIBUTION WIDTH-CV 14.3 % (11.5-14.5)
[2021-08-17 15:35] LABS: BILIRUBIN,TOTAL 0.8 mg/dL (0.2-1.2); C-REACTIVE PROTEIN 1.06 mg/dL (0.00-0.50); CALCIUM 9.2 mg/dL (8.4-10.2); CREATININE, serum 2.18 mg/dL (0.72-1.25); POTASSIUM 3.8 mmol/L (3.5-4.5); TOTAL PROTEIN 6.9 gm/dL (6.2-8.1)
[2021-08-17 15:41] LABS: ERYTHROCYTE SEDIMENTATION RATE 27 mm/hr (0-30)
== END ==
LOC: ZLAB.STJ 15:03
PROVIDERS: Internal Medicine
DX: Z13.228 Encounter for screening for other metabolic disorders (principal); R79.9 Abnormal finding of blood chemistry, unspecified; R79.82 Elevated C-reactive protein (CRP); R70.0 Elevated erythrocyte sedimentation rate; R74.8 Abnormal levels of other serum enzymes

== ENCOUNTER 2022-03-01 10:02 | Outpatient (CLI) | payer MEDICARE ==
[~2022-03-01] VITALS: Ht 172.7 cm; Wt 117.0 kg
[~2022-03-01 10:02] MED LIST changes: +BACTRIM 400 MG-1 TAB PO; +MICARDIS20 MG PO; +ZYVOX 600MG600 MG PO
[2022-03-01 10:26] VITALS: BP 155/78; PULSE 89; TEMP 97.9
--- NOTE | 2022-03-01 12:05 | NUR ---
Patient discharged at this time. No questions regarding medications. No adverse reactions noted. here to cook pickled meat patient.
--- NOTE | 2022-03-01 13:30 | NUR ---
Patient discharge at this time. Denies any adverse reactions from IV antibiotic
== END 2022-03-01 13:30 | disposition home or self-care (01) ==
LOC: EUO 10:02
DX: M01.X72 Direct infection of left ankle and foot in infectious and parasitic diseases classified elsewhere (principal); A49.02 Methicillin resistant Staphylococcus aureus infection, unspecified site
CPT/HCPCS: J0875; J7060

== ENCOUNTER 2022-04-20 22:27 | Inpatient (IN) | payer MEDICARE ==
[~2022-04-20] VITALS: Ht 170.2 cm; Wt 125.7 kg
[2022-04-21 00:38] LABS: BASO # 0.1 K/mm3 (0.0-0.2); BASO % 0.3 % (0.0-2.0); EOS # 0.1 K/mm3 (0.0-0.7); EOS % 0.4 % (0.0-4.0); GRAN # 18.2 K/mm3 (1.4-6.5); GRAN % 86.7 % (42.2-75.2); HEMATOCRIT 40.9 % (42.0-52.0); HEMOGLOBIN 13.8 g/dl (13.5-18.0); LYMPH # 1.1 K/mm3 (1.2-3.4); LYMPH % 5.3 % (20.0-51.0); MEAN CELL VOLUME 89 fl (80.0-100.0); MEAN CORPUSCULAR HEMOGLOBIN 30 pg (27-31); MEAN CORPUSCULAR HGB CONC 34 g/dl (33.0-37.0); MEAN PLATELET VOLUME 9.1 fl (7.4-10.4); MONO # 1.4 K/mm3 (0.1-0.6); MONO % 6.8 % (1.7-9.3); PLATELET COUNT 343 K/mm3 (130-400); RED BLOOD COUNT 4.62 M/mm3 (4.20-5.60); REDCELL DISTRIBUTION WIDTH-CV 13.6 % (11.5-14.5)
[2022-04-21 00:42] LABS: ALBUMIN 3.7 gm/dL (3.4-4.8); BILIRUBIN,TOTAL 0.8 mg/dL (0.2-1.2); C-REACTIVE PROTEIN 3.07 mg/dL (0.00-0.50); CALCIUM 9.7 mg/dL (8.4-10.2); CREATININE, serum 2.14 mg/dL (0.72-1.25); POTASSIUM 3.5 mmol/L (3.5-4.5); TOTAL PROTEIN 7.6 gm/dL (6.2-8.1)
[2022-04-21] MEDS ORDERED: ADALAT CC30 MG PO (01:37)
[2022-04-21] MEDS ORDERED: INSULIN R (N100 U/ML SQ (01:40)
[2022-04-21] MEDS ORDERED: TRADJENTA5 MG PO (01:40)
[2022-04-21] MEDS ORDERED: NORVASC 5MG5 MG/TAB PO (02:10)
[2022-04-21] MEDS ORDERED: ZAROXOLYN 2.52.5 MG PO (02:12)
[2022-04-21 03:12] VITALS: BP 163/72; PULSE 101; TEMP 99.3
--- NOTE | 2022-04-21 04:24 | NUR ---
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 ht 170.2 cm wt 118.2 kg (adj wt 86.9 kg) SCr 2.14 with estimated CrCl ~30 ml/min half life 30.4 hours Plan: Patient may not follow population based kinetics secondary to renal dysfunction and body habitus (BMI 40.9 kg/m2). Patient received an initial loading dose of vancomycin 2000 mg x1 in the ED (16.9 mg/kg); will follow with a maintenance regimen of vancomycin 1500 mg q36h to target a goal trough of 15-20 mcg/ml. Will follow patient's renal function, micro data, and vancomycin levels as indicated to assess for any necessary changes to regimen. Thank you for this dosing consult.
[2022-04-21 06:01] LABS: COLLECTION METHOD CATHETER
[2022-04-21 06:11] LABS: PH 5.5 (5.0-8.5); URINE APPEARANCE Clear (CLEAR/HAZY); URINE COLOR Yellow (YELLOW); URINE PROTEIN(semi-quant) 1+ (NEGATIVE)
[2022-04-21 06:12] LABS: URINE BLOOD Negative (NEGATIVE); URINE GLUCOSE Negative (NEGATIVE); URINE KETONE Negative (NEGATIVE); URINE NITRATE Negative (NEGATIVE); URINE UROBILINOGEN 0.2 E.U/dL (0.2-1.0)
[2022-04-21 06:17] LABS: MUCOUS Present (NOT PRESENT); SQUAMOUS EPITHELIAL None Seen /hpf (0-10); URINE BACTERIA None Seen /hpf (NONE SEEN); URINE RBC 0-2 /hpf (0-2)
--- NOTE | 2022-04-21 06:22 | NUR ---
PT ARRIVED TO FLOOR FROM ER, APPEARS TO BE IN STABLE CONDITION DENIES PAIN. REDNESS TO LLE MARKED PER HOSPITALIST, DOPPLER TO BILATERAL FEET UNABLE TO FIND L PEDAL PULSE HOSPITALIST AWARE.
[2022-04-21 07:44] VITALS: BP 149/58; PULSE 98; TEMP 99.7
--- NOTE | 2022-04-21 09:00 | NUR ---
Visited with Dr. Flowers in regard to PICC placement. He would like to exam the patient prior to PICC placement.
--- NOTE | 2022-04-21 10:46 | NUR ---
KAREN met with the patient to discuss discharge plan. The patient lives in [place] with his , Consuelo (ph#[phone]), and their son. He reports independence with ADLs and states he has access to canes, walkers, and wheelchairs; if needed. The patient's PCP is Dr. Ca Rowe and he receives his medications from [facility]. The patient does not have a DPOA-HC, but he was interested in obtaining a form. KAREN provided. The patient plans to return home with his family upon discharge. KAREN asked the PA for PT/OT to be ordered. *Discharge plan: home with family*
[2022-04-21 11:44] VITALS: BP 132/47; PULSE 87; TEMP 99.3
--- NOTE | 2022-04-21 12:04 | NUR ---
Patient sleeping in bed, easily to awake. Noted redness at bilateral extremities. Pedal pulse papable on the left ankle. Patient denies pain at this time.
--- NOTE | 2022-04-21 14:17 | NUR ---
Carie: Orthodoxy Situation: formula mixer stopped by room on rounds Background: Pt was visiting with a friend. Pt was in good spirits Assessment: Pt has no needs right now other than keep praying for his leg pt appreciated the visit Recommendation: formula mixer will follow up as needed
--- NOTE | 2022-04-21 15:12 | NUR ---
Patient left the unit via wheelchair for MRI. Tele monitor disconnected at this time.
--- NOTE | 2022-04-21 17:03 | NUR ---
Patient returned back from MRI. Patient denies pain at time. Tele monitor connected back on patient.
[2022-04-21 21:12] VITALS: BP 151/58; PULSE 78; TEMP 99.7
--- NOTE | 2022-04-21 21:15 | NUR ---
PT A&OX4 RESTING IN BED. MEDS GIVEN AND ASSESSMENT COMPLETE. BILATERAL PEDAL PULSES AUDIBLE W DOPPLER. REDNESS TO LLE. VSS AND TELE IN PLACE. NO NEEDS AT THIS TIME. CALL LIGHT WITHIN REACH.
[2022-04-21 23:51] VITALS: BP 158/47; PULSE 90; TEMP 100.3
[2022-04-22 04:33] VITALS: BP 136/54; PULSE 71; TEMP 99.5
[2022-04-22 07:20] VITALS: BP 137/57; PULSE 88; TEMP 99.5
--- NOTE | 2022-04-22 07:29 | NUR ---
Received shift report from shift superintendent caustic cresylate nurse, Susan Colindres RN.
--- NOTE | 2022-04-22 09:38 | NUR ---
Patient awake alert and oriented. Bilateral lower extremities .Pedal pulse present by using doppler. Patient denies pain.
--- NOTE | 2022-04-22 12:12 | NUR ---
Alberto Lakhani notified on consult .
[2022-04-22 12:14] VITALS: BP 122/51; PULSE 66; TEMP 98.3
[2022-04-22 13:07] LABS: CALCIUM 8.7 mg/dL (8.4-10.2); CREATININE, serum 3.12 mg/dL (0.72-1.25); POTASSIUM 3.5 mmol/L (3.5-4.5)
[2022-04-22 13:09] LABS: BASO # 0.1 K/mm3 (0.0-0.2); BASO % 0.4 % (0.0-2.0); EOS % 0.1 % (0.0-4.0); GRAN % 85.8 % (42.2-75.2); LYMPH % 6.1 % (20.0-51.0); MEAN CELL VOLUME 88 fl (80.0-100.0); MEAN CORPUSCULAR HEMOGLOBIN 29 pg (27-31); MEAN CORPUSCULAR HGB CONC 34 g/dl (33.0-37.0); MEAN PLATELET VOLUME 9.6 fl (7.4-10.4); MONO # 1.2 K/mm3 (0.1-0.6); MONO % 7.1 % (1.7-9.3); PLATELET COUNT 279 K/mm3 (130-400); RED BLOOD COUNT 4.08 M/mm3 (4.20-5.60); REDCELL DISTRIBUTION WIDTH-CV 13.4 % (11.5-14.5)
[2022-04-22 13:10] LABS: HEMATOCRIT 35.7 % (42.0-52.0)
--- NOTE | 2022-04-22 14:19 | NUR ---
Received call from the lab for elevated glucose level of 401. Lionel Melton notified and ordered to give 20units of regular insulin IV. Medication verified by pharmacy. 20 Units of regular insulin administered IV push. Patient tolerating well. Will continue to do glucose check every hour per orders.
[2022-04-22 16:27] VITALS: BP 128/55; PULSE 73
[2022-04-22 20:37] VITALS: BP 157/62; PULSE 88; TEMP 99.2
--- NOTE | 2022-04-22 21:00 | NUR ---
Patient A/Ox4, VSS, NAD, head to toe assessment done, denies pain at the time of assessment, HS meds given, straight catheter every 6 hours will facilitate, call light and personal items within reach, contact precaution maintained.
[2022-04-22 23:58] VITALS: BP 132/51; PULSE 71; TEMP 99.9
[2022-04-23 04:00] VITALS: BP 134/55; PULSE 88; TEMP 98
--- NOTE | 2022-04-23 07:03 | NUR ---
Shift report received from hourly shift RN
--- NOTE | 2022-04-23 07:15 | NUR ---
Called Dr. Bravo and informed him regarding patient's low urine output which 300ml total in 12/hr shift.
[2022-04-23 07:18] LABS: BASO # 0.1 K/mm3 (0.0-0.2); BASO % 0.4 % (0.0-2.0); EOS # 0.1 K/mm3 (0.0-0.7); EOS % 0.6 % (0.0-4.0); GRAN # 11.7 K/mm3 (1.4-6.5); GRAN % 80.4 % (42.2-75.2); LYMPH # 1.5 K/mm3 (1.2-3.4); MEAN CELL VOLUME 86 fl (80.0-100.0); MEAN CORPUSCULAR HEMOGLOBIN 29 pg (27-31); MEAN CORPUSCULAR HGB CONC 34 g/dl (33.0-37.0); MEAN PLATELET VOLUME 9.8 fl (7.4-10.4); MONO # 1.2 K/mm3 (0.1-0.6); MONO % 8.1 % (1.7-9.3); PLATELET COUNT 273 K/mm3 (130-400); REDCELL DISTRIBUTION WIDTH-CV 13.2 % (11.5-14.5)
[2022-04-23 07:24] LABS: CALCIUM 8.7 mg/dL (8.4-10.2); CREATININE, serum 3.45 mg/dL (0.72-1.25); POTASSIUM 3.2 mmol/L (3.5-4.5)
[2022-04-23 07:26] LABS: HEMATOCRIT 32.7 % (42.0-52.0)
[2022-04-23 07:39] VITALS: BP 141/62; PULSE 88; TEMP 98.9
--- NOTE | 2022-04-23 08:26 | NUR ---
Pt sitting up in bed eating breakfast. He denies pain/discomfort. BLE edema present. Pedal pulses identified bilaterally w/ doppler. Pt. denies additional needs at this time. Call light is within his reach
--- NOTE | 2022-04-23 10:05 | NUR ---
Pt reporting feeling occasional shortness of breath. Pt. stated "I'm worried about my darn kidney". Pt concerned about 100mL UOP at start of shift this morning. Hospitalist was notified by the overnight cashier RN. Explained to pt that the hospitalist is aware. LCTAB, respiration even/unlabored. Sp02 97% RA.
[2022-04-23 10:07] VITALS: PULSE 73
[2022-04-23 11:52] VITALS: BP 126/56; PULSE 69; TEMP 98.1
[2022-04-23 12:08] LABS: COLLECTION METHOD CATHETER
[2022-04-23 12:14] LABS: MUCOUS Present (NOT PRESENT); SQUAMOUS EPITHELIAL 0-2 /hpf (0-10); URINE BACTERIA None Seen /hpf (NONE SEEN)
[2022-04-23 12:15] LABS: URINE APPEARANCE Cloudy (CLEAR/HAZY); URINE COLOR Amber (YELLOW)
[2022-04-23 12:16] LABS: URINE BLOOD Negative (NEGATIVE); URINE GLUCOSE Negative (NEGATIVE); URINE KETONE Negative (NEGATIVE); URINE NITRATE Negative (NEGATIVE); URINE PROTEIN(semi-quant) 2+ (NEGATIVE); URINE UROBILINOGEN 0.2 E.U/dL (0.2-1.0)
--- NOTE | 2022-04-23 15:14 | NUR ---
UA and blood draw completed. Called Dr. Carter per order. No answer. Left a voice mail for him to return my phone call
[2022-04-23 15:36] LABS: SODIUM 132 mmol/L (136-145)
[2022-04-23 16:00] VITALS: BP 149/62; PULSE 69; TEMP 98.7
[2022-04-23 20:59] VITALS: BP 130/67; PULSE 69; TEMP 98.5
--- NOTE | 2022-04-23 22:24 | NUR ---
Patient A/Ox4, VSS, NAD, head to toe assessment done, denies pain at this time, called Summer regarding the vanco trough d/t lab personnel and private household worker attempted to draw blood but failed and she noted it and order to let the pharmacy know regarding this, called the pharmacy and spoken to pharmacist Alcides and he verbalized we don't have to take any vanco trough tonight, audible pedal pulses both LE, call light and personal items within reach, will facilitate straight catheter every 6 hours, will continue to monitor.
[2022-04-24] VITALS (7 sets, daily range): BP systolic 130–161; BP diastolic 53–69; PULSE 67–86; TEMP 98.2–99.1
[2022-04-24 07:21] LABS: BASO # 0.1 K/mm3 (0.0-0.2); BASO % 0.4 % (0.0-2.0); EOS # 0.2 K/mm3 (0.0-0.7); EOS % 1.4 % (0.0-4.0); GRAN # 11.4 K/mm3 (1.4-6.5); GRAN % 81.8 % (42.2-75.2); HEMOGLOBIN 11.1 g/dl (13.5-18.0); LYMPH # 1.2 K/mm3 (1.2-3.4); LYMPH % 8.9 % (20.0-51.0); MEAN CELL VOLUME 88 fl (80.0-100.0); MEAN CORPUSCULAR HEMOGLOBIN 29 pg (27-31); MEAN CORPUSCULAR HGB CONC 33 g/dl (33.0-37.0); MEAN PLATELET VOLUME 9.4 fl (7.4-10.4); PLATELET COUNT 312 K/mm3 (130-400); RED BLOOD COUNT 3.81 M/mm3 (4.20-5.60); REDCELL DISTRIBUTION WIDTH-CV 13.1 % (11.5-14.5)
[2022-04-24 07:26] LABS: HEMATOCRIT 33.5 % (42.0-52.0)
[2022-04-24 07:35] LABS: CALCIUM 8.7 mg/dL (8.4-10.2); CREATININE, serum 3.31 mg/dL (0.72-1.25); POTASSIUM 3.5 mmol/L (3.5-4.5)
--- NOTE | 2022-04-24 08:00 | NUR ---
PATIENT IS A&O. VSS ON TELE. REPORTS PAIN IS MANAGED AT THIS TIME. LLE IS ELEVATED ON PILLOW. NOTED LLE +3 EDEMA AND RED BOARDERS MARKED. IV ABX VIA RIGHT AC IV. PATIENT IS A VERY DIFFICULT IV/BLOOD DRAW STICK AND WOULD BENEFIT FROM PORT. NO PICC LINE PER NEPHROLOGY DUE TO PATIENTS CKD AND FUTURE POSSIBLE NEED FOR DIALYSIS FISTULA. BS HAVE BEEN CONSISTANTLY OVER 200 EVEN WITH LONG/SHORT/SSI INSULIN DOSES, SEE MAR. PATIENT ALSO SELF CATHS AND NEEDS TO INCREASE SELF CATHING TO Q6H. HEAD TO TOE ASSESSMENT COMPLETE. BREAKFAST TRAY AT BEDSIDE. NO OTHER NEEDS AT THIS TIME. CALL LIGHT IN REACH.
--- NOTE | 2022-04-24 11:30 | NUR ---
PATIENT STRAIGHT CATHED HIMSELF FOR 275CC OF CLEAR YELLOW URINE.
[2022-04-24 21:04] LABS: CLOSTRIDIUM DIFF A/B NEG; CLOSTRIDIUM DIFF A/B INTERP No C.diff present
--- NOTE | 2022-04-24 23:19 | NUR ---
2300 PT AMBULATING IN [place]E WITH PCT, PT STATED THAT DURING THIS WALK HE BEGAN TO FEEL LIGHT HEADED. REQUESTED TO HAVE BLOOD SURGAR CHECKED. 2315 PTS BS LEVEL 57. RN AT BEDSIDE, PT REQUESTING AN ENSURE OR BOOST, 128 ML OF GRAPE JUICE PROVIDED WHILE RN LOCATED ENSURE. PT DRANK ALL OF ENSURE, WILL MONITOR BS LEVELS.
[2022-04-25 03:54] VITALS: BP 138/56; PULSE 68; TEMP 98.7
--- NOTE | 2022-04-25 05:51 | NUR ---
PT DID INTERMITTENT STRAIGHT CATHERITERIZATION Q6 HOURS OVERNIGHT, FIRST OUTPUT AT 2330 550ML RETURNED, SECOND 0545 300ML RETURNED
--- NOTE | 2022-04-25 08:00 | NUR ---
PATIENT IS A&O. VSS ON TELE. DENIES PAIN OR NAUSEA. LLE IS ELEVATED ON PILLOW. NOTED LLE +3 EDEMA AND RED BOARDERS MARKED. +1 PEDAL PULSES TO LLE. IV ABX VIA RIGHT AC IV. PATIENT IS A VERY DIFFICULT IV/BLOOD DRAW STICK AND WOULD BENEFIT FROM PORT. NO PICC LINE PER NEPHROLOGY DUE TO CKD AND FUTURE POSSIBLE NEED FOR DIALYSIS FISTULA. BS HAVE BEEN HIGH DURING MOST OF HIS STAY HOWEVER, LAST NIGHT PATIENT'S BS DROPPED TO 57. HOSPITALIST TO RE-EVALUATE HIS INSULIN THERAPY, SEE ORDERS. PATIENT ALSO SELF CATHS Q6H. PATIENT REPORTS HE WAS PREVIOUSLY ONLY SELF CATHING AT HOME BID AND RARELY FEELS THE URGE. PATIENT HAS DONE WELL WITH THE Q6H SELF CATH SCHEDULE. HEAD TO TOE ASSESSMENT COMPLETE. BREAKFAST TRAY AT BEDSIDE. NO OTHER NEEDS AT THIS TIME. CALL LIGHT IN REACH.
[2022-04-25 08:12] VITALS: BP 142/57; PULSE 66; TEMP 98.8
[2022-04-25 10:24] LABS: BASO # 0.1 K/mm3 (0.0-0.2); BASO % 0.6 % (0.0-2.0); EOS # 0.2 K/mm3 (0.0-0.7); EOS % 1.7 % (0.0-4.0); GRAN # 10.9 K/mm3 (1.4-6.5); GRAN % 79.9 % (42.2-75.2); HEMOGLOBIN 11.2 g/dl (13.5-18.0); LYMPH # 1.4 K/mm3 (1.2-3.4); LYMPH % 10.4 % (20.0-51.0); MEAN CELL VOLUME 86 fl (80.0-100.0); MEAN CORPUSCULAR HEMOGLOBIN 29 pg (27-31); MEAN CORPUSCULAR HGB CONC 34 g/dl (33.0-37.0); MEAN PLATELET VOLUME 9.3 fl (7.4-10.4); MONO # 0.9 K/mm3 (0.1-0.6); MONO % 6.9 % (1.7-9.3); PLATELET COUNT 376 K/mm3 (130-400); RED BLOOD COUNT 3.87 M/mm3 (4.20-5.60); REDCELL DISTRIBUTION WIDTH-CV 13.2 % (11.5-14.5)
[2022-04-25 10:27] LABS: HEMATOCRIT 33.1 % (42.0-52.0)
[2022-04-25 10:39] LABS: CALCIUM 8.5 mg/dL (8.4-10.2); CREATININE, serum 2.57 mg/dL (0.72-1.25); POTASSIUM 3.8 mmol/L (3.5-4.5)
--- NOTE | 2022-04-25 11:25 | NUR ---
PCT REPORTS PATIENT COMPLAINTS OF LEFT ARM PAIN THAT "STARTS IN MY ARM PIT AND SHOOTS DOWN MY ARM" PATIENT WENT ON TO SAY "ITS SYNCHRONIZED WITH MY HEART BEAT". PATIENT DENIES CHEST PAIN OR SOA. NOTIFIED HOSPITALIST, SEE ORDERS. RT CALLED FOR EKG. LAB CALLED, SEE ADD ON TESTS. NEPHROLOGY ALSO NOTIFIED. PROVIDER TO ASSESS AT BEDSIDE.
--- NOTE | 2022-04-25 12:05 | NUR ---
INTERROGATED PACEMAKER VIA VERBAL ORDERS.
[2022-04-25 12:18] VITALS: BP 156/51; PULSE 71; TEMP 97.8
[2022-04-25 16:56] VITALS: BP 144/60; PULSE 73; TEMP 98.3
[2022-04-25 20:43] VITALS: BP 170/62; PULSE 76; TEMP 98.9
--- NOTE | 2022-04-25 20:50 | NUR ---
PT STATED HE STRAIGHT CATHED AT 1900 600CC OF URINE RETURNED
[2022-04-25 23:40] VITALS: BP 144/52; PULSE 75; TEMP 99.8
[2022-04-26 04:33] VITALS: BP 156/58; PULSE 90; TEMP 98.5
[2022-04-26 06:48] LABS: BASO # 0.1 K/mm3 (0.0-0.2); BASO % 0.4 % (0.0-2.0); EOS # 0.1 K/mm3 (0.0-0.7); EOS % 0.8 % (0.0-4.0); GRAN % 82.4 % (42.2-75.2); LYMPH # 1.2 K/mm3 (1.2-3.4); LYMPH % 7.9 % (20.0-51.0); MEAN CELL VOLUME 86 fl (80.0-100.0); MEAN CORPUSCULAR HEMOGLOBIN 29 pg (27-31); MEAN CORPUSCULAR HGB CONC 34 g/dl (33.0-37.0); MEAN PLATELET VOLUME 9.2 fl (7.4-10.4); MONO # 1.3 K/mm3 (0.1-0.6); MONO % 7.9 % (1.7-9.3); PLATELET COUNT 350 K/mm3 (130-400); RED BLOOD COUNT 3.75 M/mm3 (4.20-5.60); REDCELL DISTRIBUTION WIDTH-CV 13.1 % (11.5-14.5)
[2022-04-26 06:50] LABS: HEMATOCRIT 32.2 % (42.0-52.0)
[2022-04-26 07:11] LABS: CALCIUM 8.8 mg/dL (8.4-10.2); CREATININE, serum 2.25 mg/dL (0.72-1.25)
[2022-04-26 07:29] VITALS: BP 166/59; PULSE 80; TEMP 98.4
--- NOTE | 2022-04-26 10:00 | NUR ---
PATIENT CALLED OUT C/O FEELING LIKE HE CAN'T TAKE A DEEP BREATH AND IS QUESTIONING FLUID OVERLOAD. A&P LUNG DIAZ ARE DEMINISHED IN BASES, UPPER LOBES CLEAR. 02 SAT OF 94-95% ON RA. VSS. NO VISIBLE DISTRESS. HOSPITALIST NOTIFIED.
[2022-04-26 11:28] VITALS: BP 179/64; PULSE 76; TEMP 99
--- NOTE | 2022-04-26 12:00 | NUR ---
NEPHROLOGY ROUNDING, PATIENT C/O FEELING A LITTLE FLUID OVER LOADED, SEE ORDERS FOR LASIX.
--- NOTE | 2022-04-26 12:23 | NUR ---
HOSPITALIST TEAM NOW ROUNDING ON PATIENT DUE TO C/O FEELING LIKE "I CAN'T TAKE A DEEP BREATH". SEE ORDERS FOR CXR
--- NOTE | 2022-04-26 15:31 | NUR ---
DR. NESBITT NOTIFIED OF SURGICAL CONSULT
[2022-04-26 16:27] VITALS: BP 145/55; PULSE 76; TEMP 98.4
[2022-04-26 20:25] VITALS: BP 160/62; PULSE 78; TEMP 98.7
[2022-04-27] VITALS (9 sets, daily range): BP systolic 122–168; BP diastolic 55–72; PULSE 72–91; TEMP 98.3–101
[2022-04-27 07:26] LABS: BASO # 0.1 K/mm3 (0.0-0.2); BASO % 0.6 % (0.0-2.0); EOS # 0.2 K/mm3 (0.0-0.7); EOS % 1.3 % (0.0-4.0); GRAN # 11.5 K/mm3 (1.4-6.5); GRAN % 79.8 % (42.2-75.2); HEMATOCRIT 48.6 % (42.0-52.0); LYMPH # 1.5 K/mm3 (1.2-3.4); LYMPH % 10.3 % (20.0-51.0); MEAN CELL VOLUME 88 fl (80.0-100.0); MEAN CORPUSCULAR HEMOGLOBIN 29 pg (27-31); MEAN CORPUSCULAR HGB CONC 33 g/dl (33.0-37.0); MEAN PLATELET VOLUME 11.3 fl (7.4-10.4); MONO % 7.2 % (1.7-9.3); PLATELET COUNT 254 K/mm3 (130-400); RED BLOOD COUNT 5.51 M/mm3 (4.20-5.60); REDCELL DISTRIBUTION WIDTH-CV 13.2 % (11.5-14.5)
[2022-04-27 07:28] LABS: HEMOGLOBIN 15.8 g/dl (13.5-18.0)
--- NOTE | 2022-04-27 09:24 | NUR ---
Pt assessment complete. Pt is laying in bed upon entry, he is A/O x4. His breathing is even and unlabored on RA. Pt denies SOB. NO nausea at this time. Denies "physical" pain. Reports he is stressed d/t his family having the flu currently. Asking about the upcoming procedure, discussed POC with him. Verbalized understanding. No further needs at this time. Call light within reach.
[2022-04-27 12:34] LABS: CALCIUM 9.1 mg/dL (8.4-10.2); CREATININE, serum 2.14 mg/dL (0.72-1.25); POTASSIUM 4.2 mmol/L (3.5-4.5)
--- NOTE | 2022-04-27 16:18 | NUR ---
Dba Manager met with patient to discuss need for IV antibiotics. Patient's , Consuelo is home with COVID so he advised he plans to return home with his neighbor, Ariel while his recovers from covid. Patient is not interested in a SNF stay at this time, despite SW offering referrals to be sent. Patient stated he didn't think his insurance would cover it (Medicare Advantage Plan) and he feels he can do the antibiotics at home. Patient states he has a "degree in [facility] [place]" and feels he can do it at home. SW reviewed option for outpatient IV antibiotics and he advised he cannot drive to the hospital each day. Patient would like to use the infusion company, [facility] as he believes he has used them in the past when he did another round of home IV antibiotics. Patient also used [facility] and would like to use them again. KAREN faxed referral to Jimi at [facility] who advised they can accept. KAREN also faxed referral to [facility] and spoke with Gavin, Pharmacist who will run patient's benefits. KAERN attempted to contact patient's , Consuelo and left a message.
--- NOTE | 2022-04-27 18:48 | NUR ---
Pt had uneventful day. Pain well controlled. Denied any SOB. Intermittent cath completed at 1430. Doll site has small amount of drainage to insertion site. No needs at this time. Call light within reach.
--- NOTE | 2022-04-27 23:56 | NUR ---
PT C/O OF MELATONIN NOT EFFECTIVE, PROVIDER NOTIFIED, ORDERED 12.5MG BENADRYL IV ONE TIME.
[2022-04-28 00:32] VITALS: BP 173/59; PULSE 88; TEMP 98.4
[2022-04-28 04:35] VITALS: BP 158/61; PULSE 77; TEMP 98.7
[2022-04-28 06:48] LABS: BASO # 0.1 K/mm3 (0.0-0.2); BASO % 0.4 % (0.0-2.0); EOS # 0.1 K/mm3 (0.0-0.7); EOS % 0.8 % (0.0-4.0); GRAN # 13.5 K/mm3 (1.4-6.5); GRAN % 81.5 % (42.2-75.2); LYMPH # 1.3 K/mm3 (1.2-3.4); LYMPH % 7.9 % (20.0-51.0); MEAN CELL VOLUME 87 fl (80.0-100.0); MEAN CORPUSCULAR HGB CONC 33 g/dl (33.0-37.0); MEAN PLATELET VOLUME 9.1 fl (7.4-10.4); MONO # 1.4 K/mm3 (0.1-0.6); MONO % 8.5 % (1.7-9.3); RED BLOOD COUNT 3.89 M/mm3 (4.20-5.60); REDCELL DISTRIBUTION WIDTH-CV 13.2 % (11.5-14.5)
[2022-04-28 06:49] LABS: HEMOGLOBIN 11.3 g/dl (13.5-18.0); MEAN CORPUSCULAR HEMOGLOBIN 29 pg (27-31); PLATELET COUNT 469 K/mm3 (130-400)
--- NOTE | 2022-04-28 07:00 | NUR ---
appears to be sleeping, bedside shift report received from KERRY Arellano
[2022-04-28 07:03] LABS: CALCIUM 8.8 mg/dL (8.4-10.2); CREATININE, serum 2.3 mg/dL (0.72-1.25); POTASSIUM 4.5 mmol/L (3.5-4.5)
[2022-04-28 07:29] VITALS: BP 161/67; PULSE 85; TEMP 98.5
--- NOTE | 2022-04-28 08:00 | NUR ---
sitting up in bed eating breakfast, c/o some shortness of breath and thinks he needs to take his lasix, this was given
[2022-04-28] MEDS ORDERED: PROBIOTIC ACID1 EAC3 PO (09:13)
[2022-04-28] MEDS ORDERED: ROCEPHIN VIA1 G/VIAL IV (09:13)
[2022-04-28] MEDS ORDERED: CUBICIN 500MG500 MG IV ×2 (09:13→09:16)
[2022-04-28] MEDS ORDERED: LASIX 40MG TABL40 MG PO (09:33)
--- NOTE | 2022-04-28 09:50 | NUR ---
remains resting in bed, full assessment completed, see interventions for further info, denies pain or needs at this time, pedal pulses present with doppler, has light redness to left lower leg,
--- NOTE | 2022-04-28 09:55 | NUR ---
remains resting in bed, states shortness of breath is better than earlier
--- NOTE | 2022-04-28 12:15 | NUR ---
central dressing change to Doll catheter performed, when flushed had blood return to white but not red, will recheck later, sitting up in bed eating lunch
[2022-04-28 12:19] VITALS: BP 143/61; PULSE 85; TEMP 97.9
--- NOTE | 2022-04-28 13:28 | NUR ---
I called JAMI/[place] at [phone] and requested authorization for OUTPT Daptomycin with [id number]/CPT 56816. Per Nicholas MEADOWS with Ref #[id number]. I then spoke with Toni Nick and requested authrization for Paige J0696- ABDIEL required as well. Ref #[id number]. ICD 10 code of L03.116.
--- NOTE | 2022-04-28 14:15 | NUR ---
Buccaro attended clinical rounds with the team. Hospitalist and Surgical team do not feel it is safe for patient to manage his antibiotics at home due to the type of line he has. Patient verbalized understanding and is willing to do outpatient IV antibiotics at [facility]. Patient will get Rocephin once daily and Dapto every other day for a week. KAREN collaborated with Case Management who advised per [place], no prior auth is required (See Case Management Note). KAREN contacted Manuela at [facility] services and faxed referral, script, CM note, and discharge orders. They are able to start patient tomorrow. First appointment will be tomorrow at 1300. This appointment date/time was provided to RN and Pattern Drafter. KAREN contacted Gavin at [facility] to update on plan. KAREN also spoke with Jimi at [facility] and faxed discharge orders. Patient is agreeable to plan and will be staying with his neighbor across the street, Mac until his recovers from covid to avoid exposure. Discharge Plan: Home with outpatient IV antibiotics and [facility]
--- NOTE | 2022-04-28 15:00 | NUR ---
IV antibiotics given, Doll catheter has good blood return on both ports, discharge instructions given to patient, will get dressed for discharge
--- NOTE | 2022-04-28 15:45 | NUR ---
discharged per WC
== END 2022-04-28 15:45 | disposition home health service (06) | DRG 872 ==
LOC: COL.ER 22:27 → SURG 04-21 01:13
PROVIDERS: Internal Medicine; Internal Medicine Nephrology; Nurse Practitioner; Nurse Practitioner Family; Physician Assistant; Student in an Organized Health Care Education/Training Program; Surgery; ADMIT Internal Medicine
PROC: 02HV33Z Insertion of Infusion Device into Superior Vena Cava, Percutaneous Approach (ICD-10-PCS; 2022-04-27)
PROC: B5181ZA Fluoroscopy of Superior Vena Cava using Low Osmolar Contrast, Guidance (ICD-10-PCS; 2022-04-27)
PROC: 0JH63XZ Insertion of Tunneled Vascular Access Device into Chest Subcutaneous Tissue and Fascia, Percutaneous Approach (ICD-10-PCS; principal; 2022-04-27 10:30)
DX: A41.9 Sepsis, unspecified organism (principal); L03.116 Cellulitis of left lower limb; I13.0 Hypertensive heart and chronic kidney disease with heart failure and stage 1 through stage 4 chronic kidney disease, or unspecified chronic kidney disease; I50.32 Chronic diastolic (congestive) heart failure; N17.9 Acute kidney failure, unspecified; I44.2 Atrioventricular block, complete; E11.42 Type 2 diabetes mellitus with diabetic polyneuropathy; D64.9 Anemia, unspecified; E11.22 Type 2 diabetes mellitus with diabetic chronic kidney disease; I25.10 Atherosclerotic heart disease of native coronary artery without angina pectoris; E78.5 Hyperlipidemia, unspecified; J45.909 Unspecified asthma, uncomplicated; L97.529 Non-pressure chronic ulcer of other part of left foot with unspecified severity; I48.91 Unspecified atrial fibrillation; Z96.653 Presence of artificial knee joint, bilateral; N18.32 Chronic kidney disease, stage 3b; M19.90 Unspecified osteoarthritis, unspecified site; M79.622 Pain in left upper arm; I87.2 Venous insufficiency (chronic) (peripheral); Z88.5 Allergy status to narcotic agent; Z95.5 Presence of coronary angioplasty implant and graft; Z98.52 Vasectomy status; Z90.89 Acquired absence of other organs; Z95.0 Presence of cardiac pacemaker; Z90.49 Acquired absence of other specified parts of digestive tract; Z79.4 Long term (current) use of insulin; Z85.51 Personal history of malignant neoplasm of bladder
CPT/HCPCS: C1750; J0696; J0878; J1200; J1644; J1815; J1940; J2250; J2543; J2704; J3010; J3370; J3480; J7030; J7040; J7050

== ENCOUNTER 2022-10-04 10:13 | Inpatient (IN) | payer MEDICARE ==
[~2022-10-04] VITALS: Ht 175.3 cm; Wt 118.0 kg
[2022-10-04] VITALS (10 sets, daily range): BP systolic 152–210; BP diastolic 56–87; PULSE 79–100; TEMP 97.8–101.1
[~2022-10-04 10:13] MED LIST changes: +ADALAT CC30 MG PO; +ALL DAY ALLERGY10 M3 PO; +CULTURELLE CAP1 EAC1 PO; +DOXYCYCLINE HY100 MG PO; +ELIQUIS 5MG PO; +INSULIN R (N100 U/ML SQ; +LAC-HYDRIN121; +MELATIN 3 MG-11 TAB PO; +MINTOX PO; +NOVOLIN R100 U/ML SQ; +NYSTATIN POWDER30 GM TOP; +PROBIOTIC ACID1 EAC3 PO; +ROCEPHIN VIA1 G/VIAL IV; +[UNRECOGNIZED DRUG - CODE] PO
[2022-10-04] MEDS ORDERED: LAC-HYDRIN121 TP (11:00)
[2022-10-04] MEDS ORDERED: MINTOX PO (11:01)
[2022-10-04 11:59] LABS: BASO # 0.1 K/mm3 (0.0-0.2); BASO % 0.4 % (0.0-2.0); EOS % 0.3 % (0.0-4.0); GRAN # 11.4 K/mm3 (1.4-6.5); GRAN % 80.9 % (42.2-75.2); HEMOGLOBIN 10.7 g/dl (13.5-18.0); LYMPH # 1.2 K/mm3 (1.2-3.4); LYMPH % 8.5 % (20.0-51.0); MEAN CELL VOLUME 86 fl (80.0-100.0); MEAN CORPUSCULAR HEMOGLOBIN 28 pg (27-31); MEAN CORPUSCULAR HGB CONC 33 g/dl (33.0-37.0); MEAN PLATELET VOLUME 9.3 fl (7.4-10.4); MONO # 1.3 K/mm3 (0.1-0.6); MONO % 9.4 % (1.7-9.3); PLATELET COUNT 279 K/mm3 (130-400); RED BLOOD COUNT 3.81 M/mm3 (4.20-5.60); REDCELL DISTRIBUTION WIDTH-CV 14.5 % (11.5-14.5)
[2022-10-04 12:05] LABS: HEMATOCRIT 32.8 % (42.0-52.0)
[2022-10-04 12:14] LABS: ALBUMIN 2.7 gm/dL (3.4-4.8); BILIRUBIN,TOTAL 1.8 mg/dL (0.2-1.2); C-REACTIVE PROTEIN 17.08 mg/dL (0.00-0.50); CALCIUM 8.5 mg/dL (8.4-10.2); CREATININE, serum 2.24 mg/dL (0.72-1.25); POTASSIUM 3.9 mmol/L (3.5-4.5); TOTAL PROTEIN 6.5 gm/dL (6.2-8.1)
[2022-10-04 12:24] LABS: ERYTHROCYTE SEDIMENTATION RATE 95 mm/hr (0-30)
--- NOTE | 2022-10-04 15:00 | NUR ---
Telehealth visit conducted with Dr. Alberto Santiago, Infectious Disease. Patient consented to visit. Telecommunication initiated without any difficulties during exam. All questions were answered by Dr. Santiago
--- NOTE | 2022-10-04 17:38 | NUR ---
PATIENT IS NEW ADMISSION FROM ED. CELLULITS BLE, WORSE ON THE LLE. REDNESS AND WARMTH ON ASSESSMENT. PATIENT IS PLEASANT AND DOES NOT COMPLAIN OF PAIN. WOUND ON RLE THAT IS HEALING, AND IS BEING SEEN BY WOUND CARE NURSE. PUT XEROFROM NONADHESIVE PADDING WITH JEREMI WRAP. CHANGED BY KERRY GUEVARA. PATIENT IS HYPERTENSIVE WITH SYSTOLICS IN 180S. GAVE 10MG HYDRALAZINE PO. BP WENT UP TO 210 SYSTOLIC. GAVE ANOTHER DOSE OF 10MG HYDRALAZINE PER MD ORDER. WILL CONTINUE TO MONITOR. PATIENT IS NOT IMPULSIVE. VTE SCDS AND HEPARIN.
[2022-10-05] VITALS (10 sets, daily range): BP systolic 137–181; BP diastolic 62–77; PULSE 69–94; TEMP 97.7–98.5
--- NOTE | 2022-10-05 01:54 | NUR ---
Received report from day shift nurse. Pt is resting in bed with call light within reach.
[2022-10-05 04:42] LABS: BASO # 0.1 K/mm3 (0.0-0.2); BASO % 0.5 % (0.0-2.0); EOS # 0.2 K/mm3 (0.0-0.7); EOS % 1.2 % (0.0-4.0); GRAN # 9.6 K/mm3 (1.4-6.5); GRAN % 75.6 % (42.2-75.2); HEMOGLOBIN 10.1 g/dl (13.5-18.0); LYMPH # 1.4 K/mm3 (1.2-3.4); LYMPH % 11.2 % (20.0-51.0); MEAN CELL VOLUME 84 fl (80.0-100.0); MEAN CORPUSCULAR HEMOGLOBIN 29 pg (27-31); MEAN CORPUSCULAR HGB CONC 34 g/dl (33.0-37.0); MEAN PLATELET VOLUME 9.2 fl (7.4-10.4); MONO # 1.4 K/mm3 (0.1-0.6); MONO % 10.7 % (1.7-9.3); PLATELET COUNT 286 K/mm3 (130-400); RED BLOOD COUNT 3.54 M/mm3 (4.20-5.60); REDCELL DISTRIBUTION WIDTH-CV 14.2 % (11.5-14.5)
[2022-10-05 04:48] LABS: HEMATOCRIT 29.8 % (42.0-52.0)
[2022-10-05 05:00] LABS: CALCIUM 8.6 mg/dL (8.4-10.2); CREATININE, serum 2.11 mg/dL (0.72-1.25); MAGNESIUM 1.7 mg/dL (1.6-2.6); POTASSIUM 3.4 mmol/L (3.5-4.5)
--- NOTE | 2022-10-05 07:12 | NUR ---
Pt is A&Ox4 and follows commands. Pt denies pain throughout the shift. Pt's temp was in the 99 range and went up to 101.1 degree F. Tylenol was given and hospitalist was notified. When the temp was 101.1 nurse gave pt ice to suck on and turned the pt's room temp down. An hour later the pt's temp went to 98.8. Pt then complained of sweating and feeling hot and his eyes were itching. Notified hospitalist. Pt now feels better and states his eyes do not itch any more. Pt states that he takes sotalol and nifedipine once a day in the morning around 0700. Made a note in home med rec. Notified hospitalist and day shift nurse during report.
--- NOTE | 2022-10-05 07:17 | NUR ---
Received shift report from the night nurseZainab RN
--- NOTE | 2022-10-05 09:54 | NUR ---
Initial visit; Patient resting, left a card letting Wei know she stopped and will look in on him again. If he has would like to see just call .
--- NOTE | 2022-10-05 10:04 | NUR ---
Patient sitting up in bed eating breakfast, patient alert and oriented. Patient denies pain, shortness of air and feverish. Dressing to bilateral lower extremities intact. Noted small amount of yellow drainage on dressing. SCD in place. Patient has no needs at this time
--- NOTE | 2022-10-05 10:09 | NUR ---
Patient has elevated B/P of 181/77, apresoline administered at 0817 per PRN orders. See e-mar for documentation.
--- NOTE | 2022-10-05 14:41 | NUR ---
SW met with patient to complete intake and discuss discharge plan. Patient has company at bedside. Patient lives in [place] with his Consuelo ([phone]). Patient reports to being fully independent with his ADL's and IADL's. He utilizes a cane and a walker to assist with mobility. He has no home oxygen needs. PCP is and he utilizes [facility] pharmacy and Jhonny in for prescription needs. Patient does not have a DPOA-HC in his EMR but verbalizes that he does have one established listing his . He has no current home health services established. Patient is planning on returning home once medically ready. DIscharge plan: Home
[2022-10-06] VITALS (10 sets, daily range): BP systolic 123–166; BP diastolic 62–87; PULSE 70–90; TEMP 97.7–98.6
[2022-10-06 06:48] LABS: BASO # 0.1 K/mm3 (0.0-0.2); BASO % 0.4 % (0.0-2.0); EOS # 0.3 K/mm3 (0.0-0.7); EOS % 1.7 % (0.0-4.0); GRAN # 12.4 K/mm3 (1.4-6.5); HEMOGLOBIN 10.3 g/dl (13.5-18.0); LYMPH # 1.8 K/mm3 (1.2-3.4); LYMPH % 11.3 % (20.0-51.0); MEAN CELL VOLUME 83 fl (80.0-100.0); MEAN CORPUSCULAR HEMOGLOBIN 28 pg (27-31); MEAN CORPUSCULAR HGB CONC 34 g/dl (33.0-37.0); MEAN PLATELET VOLUME 9.2 fl (7.4-10.4); MONO # 1.2 K/mm3 (0.1-0.6); MONO % 7.5 % (1.7-9.3); PLATELET COUNT 340 K/mm3 (130-400)
[2022-10-06 06:51] LABS: HEMATOCRIT 30.6 % (42.0-52.0)
[2022-10-06 07:05] LABS: C-REACTIVE PROTEIN 13.24 mg/dL (0.00-0.50); CALCIUM 8.7 mg/dL (8.4-10.2); CREATININE, serum 2.13 mg/dL (0.72-1.25); POTASSIUM 3.9 mmol/L (3.5-4.5)
--- NOTE | 2022-10-06 08:01 | NUR ---
PT APPEARS TO BE RESTING IN BED UPON ENTERING. ASSESSMENT DONE, SEE INTERVENTIONS. PT HAS NO COMPLAINTS OF PAIN AT THIS TIME. PT REPORTS A BOWEL MOVEMENT AND NO LONGER IS REQUESTING AN ENEMA. RIGHT FOOT DRESSINGS REMOVED OVER NIGHT PT STATES "IT WAS TOO TIGHT", RIGHT FOOT DRESSED WITH XEROFORM, GAUZE, AND JEREMI WRAP. LEFT FOOT DRESSING STILL INTACT. PT HAS NO OTHER COMPLAINTS AT THIS TIME, CALL LIGHT IN REACH, BED IN LOWEST POSITION.
--- NOTE | 2022-10-06 13:16 | NUR ---
Initial visit; This stay, Wei Called asking to see Tourism Radio Presenter who had left a card with him and tried other times to visit but couldn't interrupt the healing process going on. Wei likes to talk about Spiritual issues and how his life has been blessed by Larry. shares her ministry with Wei and offers prayer. Wei requested a visit tomorrow before he is discharged.
--- NOTE | 2022-10-06 15:00 | NUR ---
Telehealth visit conducted with Dr. Alberto Santiago, Infectious Disease. Patient consented to visit. Patients nurse present to assist with exam. Telecommunication initiated without any difficulties during exam. All questions were answered by Dr. Santiago
[2022-10-06] MEDS ORDERED: MONODOX100 PO (15:16)
[2022-10-06] MEDS ORDERED: ROCEPHIN 2GM VIAL21 IJ (15:16)
--- NOTE | 2022-10-06 15:23 | NUR ---
The PA notified KAREN that ID is recommending IV Rocephin, once a day, for 6 weeks. KAREN met with the patient to update. The patient shares how he has received outpatient IV antibiotics at [facility] in the past and would prefer to do this again. KAREN attempted to contact Imelda with IV Therapy at [facility]. KAREN left her a voicemail.
[2022-10-07 03:05] VITALS: BP 126/51; PULSE 71; TEMP 98.4
[2022-10-07 06:50] LABS: HEMOGLOBIN 10.1 g/dl (13.5-18.0); MEAN CELL VOLUME 84 fl (80.0-100.0); MEAN CORPUSCULAR HEMOGLOBIN 28 pg (27-31); MEAN CORPUSCULAR HGB CONC 33 g/dl (33.0-37.0); MEAN PLATELET VOLUME 9.2 fl (7.4-10.4); PLATELET COUNT 395 K/mm3 (130-400); RED BLOOD COUNT 3.64 M/mm3 (4.20-5.60); REDCELL DISTRIBUTION WIDTH-CV 14.4 % (11.5-14.5)
[2022-10-07 06:52] LABS: HEMATOCRIT 30.7 % (42.0-52.0)
[2022-10-07 07:02] LABS: CALCIUM 8.9 mg/dL (8.4-10.2); CREATININE, serum 2.06 mg/dL (0.72-1.25); POTASSIUM 3.7 mmol/L (3.5-4.5)
[2022-10-07 07:32] VITALS: BP 140/54; PULSE 71; TEMP 98.4
[2022-10-07 07:45] LABS: BAND 3 % (0-10); BASOPHIL 1 % (0-2); EOSINOPHIL 1 % (0-4); LYMPHOCYTE 12 % (20.0-51.0); NEUTROPHILS 75 % (42.0-75.2)
[2022-10-07 07:46] LABS: HYPOCHROMIA 1+; PLATELET ESTIMATE INCREASED (NORMAL)
--- NOTE | 2022-10-07 07:46 | NUR ---
PT APPEARS TO SLEEPING IN BED UPON ENTERING. ASSESSMENT DONE, SEE INTERVENTIONS. PT HAS NO COMPLAINTS OF PAIN OR DISCOMFORT AT THIS TIME. DURING ASSSESSMENT NO DRESSING ON LEFT FOOT, RIGHT FOOT HAS NONSTICK DRESSING WRAPPED IN GAUZE. CLOTS NOTED IN DAWSON OUTPUT CHAMBER. PT HAS NO OTHER COMPLAINTS AT THIS TIME. CALL LIGHT IN REACH, BED IN LOWEST POSTION, BED ALARM ON.
--- NOTE | 2022-10-07 08:00 | NUR ---
Patient is resting in bed, alert and oriented x 4, denies any pain at this time, hes having his breakfast. Assessment completed. No further needs at this time. Call [facility] within reach.
[2022-10-07 09:00] VITALS: BP_SYST 140
--- NOTE | 2022-10-07 09:05 | NUR ---
KAREN contacted and faxed the patient's records and IV antibiotic script to Imelda, with IV Therapy at [facility]. Imelda secured the patient an appointment time tomorrow at 1100 for his IV antibiotics. KAREN notified the hospitalist team, the community health planning director, and the patient of the appointment time. The patient is in agreement to the plan. KAREN presented and read the IM form outloud to the patient. The patient verbalized understanding and agreement to discharge today. He signed the form and declined a copy. The patient is to discharge back home with his today, 10/07, with outpatient IV antibiotics at [facility]. No additional needs at this time
--- NOTE | 2022-10-07 09:41 | NUR ---
Follow-up visit; Patient thanked Nitroglycerin Separator Operator for looking in on him and offering God's blessings, visiting with him and his friend, and praying for healing for Wei. Patient offered prayer for Nitroglycerin Separator Operator as well.
--- NOTE | 2022-10-07 10:55 | NUR ---
INDWELLING CATHETER REMOVED, PT TOLERATED WELL. 8ML OF WATER REMOVED FROM BALLOON, TIP INTACT.
[2022-10-07 11:16] VITALS: BP 139/60; PULSE 73; TEMP 98.8
--- NOTE | 2022-10-07 12:11 | NUR ---
Patient was provided with discharge information, all questions answered. Pt will be picking machine operator by .
== END 2022-10-07 12:30 | disposition home or self-care (01) | DRG 623 ==
LOC: COL.ER 10:13 → MEDICAL 12:50
PROVIDERS: Personal Emergency Response Attendant; Physician Assistant; ADMIT Internal Medicine
PROC: 02HV33Z Insertion of Infusion Device into Superior Vena Cava, Percutaneous Approach (ICD-10-PCS; principal; 2022-10-04)
PROC: 0JBQ0ZZ Excision of Right Foot Subcutaneous Tissue and Fascia, Open Approach (ICD-10-PCS; 2022-10-05)
DX: E11.628 Type 2 diabetes mellitus with other skin complications (principal); I13.0 Hypertensive heart and chronic kidney disease with heart failure and stage 1 through stage 4 chronic kidney disease, or unspecified chronic kidney disease; L03.116 Cellulitis of left lower limb; I44.2 Atrioventricular block, complete; I50.32 Chronic diastolic (congestive) heart failure; L97.429 Non-pressure chronic ulcer of left heel and midfoot with unspecified severity; L03.115 Cellulitis of right lower limb; E11.51 Type 2 diabetes mellitus with diabetic peripheral angiopathy without gangrene; R50.9 Fever, unspecified; E11.22 Type 2 diabetes mellitus with diabetic chronic kidney disease; N18.9 Chronic kidney disease, unspecified; I25.10 Atherosclerotic heart disease of native coronary artery without angina pectoris; I48.91 Unspecified atrial fibrillation; E87.6 Hypokalemia; R33.9 Retention of urine, unspecified; D64.9 Anemia, unspecified; K59.00 Constipation, unspecified; L97.529 Non-pressure chronic ulcer of other part of left foot with unspecified severity; L97.519 Non-pressure chronic ulcer of other part of right foot with unspecified severity; E11.621 Type 2 diabetes mellitus with foot ulcer; Z96.653 Presence of artificial knee joint, bilateral; H26.9 Unspecified cataract; B00.9 Herpesviral infection, unspecified; E78.00 Pure hypercholesterolemia, unspecified; E11.65 Type 2 diabetes mellitus with hyperglycemia; J44.9 Chronic obstructive pulmonary disease, unspecified; Z95.5 Presence of coronary angioplasty implant and graft; Z85.51 Personal history of malignant neoplasm of bladder; Z90.5 Acquired absence of kidney; Z79.4 Long term (current) use of insulin; Z99.81 Dependence on supplemental oxygen; Z95.0 Presence of cardiac pacemaker; Z90.49 Acquired absence of other specified parts of digestive tract; Z90.89 Acquired absence of other organs; Z88.5 Allergy status to narcotic agent; Z79.899 Other long term (current) drug therapy; Z98.52 Vasectomy status; Z23 Encounter for immunization
CPT/HCPCS: C1751; J0295; J0696; J1644; J1815; J3370; J7050

== ENCOUNTER 2023-02-13 11:30 | Outpatient (RCR) | payer MEDICARE ==
--- NOTE | 2023-02-06 11:56 | NUR ---
Pt arrived to after registration by wheelchair. He states "I'm here for my chewing out." When questioned further, he states he doesn't know what happened to his PICC line. He woke this morning and "It was gone." He was unable to find PICC in his bed or room, and is concered it fractured or fell out. He has no recollection of the even, and denies trauma. [facility] called immediately after this report. They present, turniquet is applied above PICC insert site. He is assisted to bed in room 12. Xray called for CXR. Pt is alert, talkative, respirations even and unlabored. No signs of distress. Stat lock dressing in place to rt upper arm, although plastic clamps used to secure PICC line are not present. Insertion site is scabbed over, no bleeding noted.
[2023-02-06 12:36] VITALS: BP 121/70; PULSE 69; TEMP 97.8
[2023-02-06 12:36] LABS: BASO # 0.1 K/mm3 (0.0-0.2); BASO % 0.6 % (0.0-2.0); EOS # 0.3 K/mm3 (0.0-0.7); EOS % 1.8 % (0.0-4.0); GRAN # 10.8 K/mm3 (1.4-6.5); GRAN % 75.5 % (42.2-75.2); HEMOGLOBIN 11.7 g/dl (13.5-18.0); LYMPH # 1.8 K/mm3 (1.2-3.4); LYMPH % 12.2 % (20.0-51.0); MEAN CELL VOLUME 88 fl (80.0-100.0); MEAN CORPUSCULAR HEMOGLOBIN 29 pg (27-31); MEAN CORPUSCULAR HGB CONC 33 g/dl (33.0-37.0); MEAN PLATELET VOLUME 8.7 fl (7.4-10.4); MONO # 1.3 K/mm3 (0.1-0.6); MONO % 9.2 % (1.7-9.3); PLATELET COUNT 378 K/mm3 (130-400); RED BLOOD COUNT 4.05 M/mm3 (4.20-5.60)
--- NOTE | 2023-02-06 12:39 | NUR ---
Pt reports to the EU for PICC cares, however PICC line is no longer present. Dressing is missing, minus stat lock. Insertion site is red with some edema surrounding site. Pt reports "he does not know where the PICC line is" and reports that he "woke up and it was gone." Tornique applied to upper arm immediately, site assessed and stat xray ordered, per protocol to assess for PICC line emboli. Currently awaiting radiologist reading regarding PICC line.
[2023-02-06 12:54] LABS: C-REACTIVE PROTEIN 2.57 mg/dL (0.00-0.50); CALCIUM 9.8 mg/dL (8.4-10.2); CREATININE, serum 2.28 mg/dL (0.72-1.25); POTASSIUM 3.5 mmol/L (3.5-4.5)
[2023-02-06 12:57] LABS: HEMATOCRIT 35.5 % (42.0-52.0)
--- NOTE | 2023-02-06 13:03 | NUR ---
PICC insertion site covered by GORDO Arnold. Offer to call PCP for new PICC placement order given to pt, he states he would like to hold off on placment for now, and attempt peripheral lab draws for timebeing. GORDO Arnold RN states she will assist with this. Pt assisted out to car by wheelchair.
[~2023-02-13] VITALS: Ht 172.7 cm; Wt 117.3 kg
[~2023-02-13 11:30] MED LIST changes: +K-DUR20 MEQ PO; +LAC-HYDRIN121 TP; +MICARDIS40 MG PO; +MONODOX100 PO; +ROCEPHIN 2GM VIAL21 IJ
[2023-02-13 12:41] VITALS: BP 152/70; PULSE 91; TEMP 98.1
[2023-02-13 12:53] LABS: BASO # 0.1 K/mm3 (0.0-0.2); BASO % 1.1 % (0.0-2.0); EOS # 0.2 K/mm3 (0.0-0.7); EOS % 1.9 % (0.0-4.0); GRAN # 7.2 K/mm3 (1.4-6.5); GRAN % 70.5 % (42.2-75.2); HEMATOCRIT 37.1 % (42.0-52.0); HEMOGLOBIN 12.3 g/dl (13.5-18.0); LYMPH # 1.7 K/mm3 (1.2-3.4); LYMPH % 16.6 % (20.0-51.0); MEAN CELL VOLUME 88 fl (80.0-100.0); MEAN CORPUSCULAR HEMOGLOBIN 29 pg (27-31); MEAN CORPUSCULAR HGB CONC 33 g/dl (33.0-37.0); MEAN PLATELET VOLUME 8.7 fl (7.4-10.4); MONO % 9.5 % (1.7-9.3); PLATELET COUNT 429 K/mm3 (130-400); REDCELL DISTRIBUTION WIDTH-CV 14.1 % (11.5-14.5)
[2023-02-13 13:13] LABS: C-REACTIVE PROTEIN 1.16 mg/dL (0.00-0.50); CALCIUM 9.6 mg/dL (8.4-10.2); CREATININE, serum 2.19 mg/dL (0.72-1.25); POTASSIUM 4.4 mmol/L (3.5-4.5)
== END 2023-02-16 | disposition home or self-care (01) ==
LOC: EUO
PROVIDERS: Internal Medicine
DX: L03.90 Cellulitis, unspecified (principal); I73.9 Peripheral vascular disease, unspecified; E78.5 Hyperlipidemia, unspecified; I25.10 Atherosclerotic heart disease of native coronary artery without angina pectoris; I12.9 Hypertensive chronic kidney disease with stage 1 through stage 4 chronic kidney disease, or unspecified chronic kidney disease; N18.30 Chronic kidney disease, stage 3 unspecified

== ENCOUNTER 2023-12-13 15:11 | Observation (INO) | payer MEDICARE ==
[~2023-12-13] VITALS: Ht 175.3 cm; Wt 121.8 kg
[~2023-12-13 15:11] MED LIST changes: +PROBIOTIC GOLD1 EACH PO; +PROCARDIA XL 3030 MG PO
[2023-12-13] MEDS ORDERED: GLUCAGEN HYPOKIT1 MG IJ (15:44)
[2023-12-13] MEDS ORDERED: MULTIPLE VITAMI1 CAP PO (15:49)
[2023-12-13] MEDS ORDERED: ADALAT CC30 MG PO (15:49)
[2023-12-13] MEDS ORDERED: NOVOLIN R100 U/ML SQ (15:50)
[2023-12-13] MEDS ORDERED: NYSTATIN100000 U/1 TOP (15:51)
[2023-12-13] MEDS ORDERED: K-DUR20 MEQ PO (15:52)
[2023-12-13] MEDS ORDERED: BETAPACE 80MG80 MG PO (15:53)
[2023-12-13] MEDS ORDERED: PLAVIX 75MG TAB75 MG PO (15:54)
[2023-12-13 16:04] VITALS: BP 153/79; PULSE 77; TEMP 98.1
[2023-12-13] MEDS ORDERED: Morphine 4 MG/ML VIAL IV PRN (16:30)
[2023-12-13 17:00] VITALS: BP_SYST 153
[2023-12-13] MEDS ORDERED: Insulin Glargine-ygfn (Lantus) SQ SCH (17:26)
[2023-12-13] MEDS ORDERED: NIFEdipine XL 30 MG TAB PO SCH (17:26)
[2023-12-13] MEDS ORDERED: Melatonin 3 MG TAB PO PRN (17:30)
[2023-12-13] MEDS ORDERED: Insulin Lispro (HumaLOG) SQ SCH (18:00)
--- NOTE | 2023-12-13 18:34 | NUR ---
DR. HICSK CALLED BY SCIENTIFIC SYSTEMS ANALYST DUE TO STAFF BEING UNABLE TO GET LABS OR PLACE AN IV ON PT AFTER MULTIPLE ATTEMPTS. DR. HICKS SPOKE WITH DR. CRAIG AND SAID THAT IT IS OKAY FOR PATIENT TO NOT HAVE IV ACCESS TONIGHT. ALSO SAID THAT PT CAN EAT DINNNER, BUT BE NPO AFTER MIDNIGHT. IF NO IMPROVEMENT IN URINE, PT MAY GO TO THE OR TOMORROW.
--- NOTE | 2023-12-13 19:04 | NUR ---
PATIENT RESTING IN BED WITH TV ON WITH NO FAMILY PRESENT WITH NO ACUTE DISTRESS NOTED. PATIENT ON ROOM AIR. NO IV ACCESS PER MD ORDER. CBI NOTED TO NOT BE DRAINING AND PATIENT C/O BLADDER FULLNESS WITH PAIN. DAWSON FLUSHED WITH 50 ML OF NORMAL SALINE. TREVINO-RED URINE WITH BLOOD CLOTS AND IRRIGATION FLUID RETURNED. DAWSON PATENT AND DRAINING TREVINO-RED URINE WITH OCCASSIONAL SMALL CLOTS SEEN. DAWSON AGAIN STOPPED DRAINING AND FLUSHED WITH 25ML OF NORMAL SALINE. MEDIUM SIZED AND SMALLER CLOT PASSES THROUGH DAWSON TUBE AND DAWSON CONTINUES TO DRAIN. NEW BAG OF IRRIGATION FLUID HUNG X2 DUE TO BOTH BAGS BEING COMPLETED. ASSESSMENT AND MEDICATION ADMINISTRATION COMPLETED. PATIETN TOLERATED WELL. PATIENT DENIES ANY OTHER NEEDS AT THIS TIME. PATIENT VERBALIZED UNDERSTANDING TO CALL PRIMARY NURSE IF HE HAS ANY UNRELIEVED PAIN, THE DAWSON ISN'T DRAINING, AND NOT TO CHAGE FLOW OF IRRIGATION FLUID. BED IN LOW POSITION WITH WHEELS LOCKED WITH RAILS UP X3 AND CALL LIGHT WITHIN REACH.
[2023-12-13 19:32] VITALS: BP 200/87; PULSE 84; TEMP 97.6
[2023-12-13 21:00] VITALS: BP_SYST 184
--- NOTE | 2023-12-13 22:30 | NUR ---
HOSPITALIST DIANE DAVIS CALLED FOR PATIENT C/O TOOTH ACHE AND REQUEST FOR DOSE OF CIPRO. NO NEW ORDERS RECIEVED.
[2023-12-13 23:16] VITALS: BP 184/78; PULSE 71; TEMP 98.3
[2023-12-13 23:43] VITALS: BP 180/92; PULSE 85; TEMP 97.6
--- NOTE | 2023-12-13 23:50 | NUR ---
DR. CRAIG CALLED PRIMARY NURSE TO CHECK ON PATIENT CBI. UPDATE GIVEN WITH NO NEW ORDERS.
[2023-12-14] VITALS (12 sets, daily range): BP systolic 140–193; BP diastolic 58–98; PULSE 71–78; TEMP 97.9–98.1
--- NOTE | 2023-12-14 06:15 | NUR ---
DR. CRAIG IN TO SEE PATIENT AT THIS TIME. VERBAL ORDER GIVEN TO CONSULT CARDIOLOGY DR. ESTEVEZ THAT PATIENT SEES AND STAY NPO TILL 10 AM.
--- NOTE | 2023-12-14 06:55 | NUR ---
REPORT GIVEN TO RONDA AND PATIENT TRANSFERED VIA BED DOWN TO SURGICAL UNIT.
[2023-12-14 07:07] LABS: BASO # 0.1 K/mm3 (0.0-0.2); BASO % 0.5 % (0.0-2.0); EOS # 0.2 K/mm3 (0.0-0.7); EOS % 1.6 % (0.0-4.0); GRAN # 8.3 K/mm3 (1.4-6.5); GRAN % 71.9 % (42.2-75.2); LYMPH # 1.8 K/mm3 (1.2-3.4); LYMPH % 15.8 % (20.0-51.0); MEAN CELL VOLUME 90 fl (80.0-100.0); MEAN CORPUSCULAR HEMOGLOBIN 29 pg (27-31); MEAN CORPUSCULAR HGB CONC 32 g/dl (33.0-37.0); MEAN PLATELET VOLUME 9.3 fl (7.4-10.4); MONO # 1.1 K/mm3 (0.1-0.6); MONO % 9.7 % (1.7-9.3); PLATELET COUNT 298 K/mm3 (130-400); RED BLOOD COUNT 3.46 M/mm3 (4.20-5.60)
[2023-12-14 07:26] LABS: HEMATOCRIT 31.2 % (42.0-52.0)
[2023-12-14] MEDS ORDERED: Dextrose 50% Water 25 GM/50 ML SYRINGE IV PRN (07:30)
[2023-12-14] MEDS ORDERED: Dextrose (Glucose) 15 GM (4 x 3.75 GM) Chewable TABLET PACK PO PRN (07:30)
[2023-12-14] MEDS ORDERED: Glucagon 1 MG VIAL IM PRN (07:30)
--- NOTE | 2023-12-14 08:00 | NUR ---
Pt. to the unit this am from Medical. Pt. is A&Ox3, assessment complete. AIVS in to start iv. Site started to rt. upper arm.. Pt. tolerated well. Three way castaneda with irrigation infusing at a mod/fast rate. Urine is powell red. with clots. PT. denies pain. call light within reach.
[2023-12-14] MEDS ORDERED: Furosemide 40 MG TAB PO SCH (09:00)
[2023-12-14] MEDS ORDERED: hydrALAZINE 25 MG TAB PO PRN (09:45)
[2023-12-14] MEDS ORDERED: Losartan 25 MG TAB PO SCH (10:00)
[2023-12-14 10:46] LABS: CALCIUM 9.1 mg/dL (8.4-10.2); CREATININE, serum 2.22 mg/dL (0.72-1.25); POTASSIUM 4.1 mEq/L (3.5-4.5)
--- NOTE | 2023-12-14 13:00 | NUR ---
Urine continues to be bright red and pt. reports feeling full. Irrigated large amount of clots out at this time, increased irrigation rate. Pt. tolerated irrigation well.
--- NOTE | 2023-12-14 15:30 | NUR ---
Pt. reports feeling full again. Irrigated at this time. Removed 300 mls of dark clots at this time. Irrigation wide open at this time. Pt. tolerated irrigation. Pt. denies pain or other needs.
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
--- NOTE | 2023-12-14 17:30 | NUR ---
Urine output in castaneda bag is pink lemonade at this time. Will keep wide open.
--- NOTE | 2023-12-14 18:45 | NUR ---
Report given to KERRY Tim.
--- NOTE | 2023-12-14 20:00 | NUR ---
PATIENT IS A&O. VSS. NO C/O PAIN. DAWSON TO DD WITH CBI INFUSING AT FAST RATE TO KEEP OPEN. NOTED CLEAR PALE YELLOW URINE WITH OCCATIONAL TISSUE CLOTS NOTED. DAY SHIFT RN REPORTS MANUAL IRRIGATION X2. HEAD TO TOE ASSESSMENT COMPLETE. TOLERATING RENAL DIET. BS OVER 200, SSI GIVEN, SEE MAR. HS MEDS GIVEN. SCD'S TO BLE. NO OTHER NEEDS AT THIS TIME. CALL LIGHT IN REACH.
[2023-12-15 00:15] VITALS: BP_SYST 142
[2023-12-15 03:45] VITALS: BP 162/70; PULSE 69; TEMP 98.2
[2023-12-15 05:41] VITALS: BP_SYST 162
--- NOTE | 2023-12-15 06:10 | NUR ---
ROUNDED EARLY THIS AM, VERBAL ORDERS TO P&P DAWSON. PATIENT PRIMED AND DAWSON DC'D PER ORDERS, PATIENT TOLERATED WELL, DAWSON TIP INTACT. PATIENT REPORTS HE SELF CATHS AT HOME. CATH SUPPLIES AT BEDSIDE. 6 CUP IN BATHROOM AND URINAL AT BEDSIDE TO MEASURE OUTPUT. PATIENT HOPING TO DISCHARGE HOME TODAY.
[2023-12-15 07:28] VITALS: BP 170/76; PULSE 71; TEMP 98.7
[2023-12-15 07:55] LABS: BASO # 0.1 K/mm3 (0.0-0.2); BASO % 0.5 % (0.0-2.0); EOS # 0.2 K/mm3 (0.0-0.7); EOS % 2.1 % (0.0-4.0); GRAN # 6.4 K/mm3 (1.4-6.5); GRAN % 69.9 % (42.2-75.2); LYMPH # 1.7 K/mm3 (1.2-3.4); LYMPH % 18.8 % (20.0-51.0); MEAN CELL VOLUME 88 fl (80.0-100.0); MEAN CORPUSCULAR HGB CONC 33 g/dl (33.0-37.0); MONO # 0.8 K/mm3 (0.1-0.6); MONO % 8.3 % (1.7-9.3); PLATELET COUNT 308 K/mm3 (130-400); RED BLOOD COUNT 3.27 M/mm3 (4.20-5.60); REDCELL DISTRIBUTION WIDTH-CV 13.7 % (11.5-14.5)
[2023-12-15 07:58] LABS: HEMOGLOBIN 9.6 g/dl (13.5-18.0); MEAN CORPUSCULAR HEMOGLOBIN 29 pg (27-31)
[2023-12-15 07:59] LABS: HEMATOCRIT 28.9 % (42.0-52.0)
--- NOTE | 2023-12-15 08:00 | NUR ---
Patient sitting up in bed eatting breakfast. A&Ox4. VSS. IV CDI. Denies pain and discomfort. Patients castaneda removed, patient straight caths, independent. No further needs expressed. Call light within reach
[2023-12-15 08:01] LABS: CALCIUM 8.1 mg/dL (8.4-10.2); CREATININE, serum 1.89 mg/dL (0.72-1.25); POTASSIUM 4.1 mEq/L (3.5-4.5)
[2023-12-15] MEDS ORDERED: NIFEdipine XL 30 MG TAB PO SCH (09:00)
--- NOTE | 2023-12-15 09:13 | NUR ---
feed elevator worker provided physical [facility] called to pt for medication assistance. No further needs noted. Discharge Plan: home
--- NOTE | 2023-12-15 09:28 | NUR ---
Discharge paperwork reviewed with the patient. Patient verbalized an understanding to follow doctors orders. Iv removed, tip intact. Gauze and coban applied. Patient waiting on ride home. Call light within reach
--- NOTE | 2023-12-15 11:05 | NUR ---
Patient taken by wheelchair by nursing staff to awaiting vehicle. No further needs expressed
== END 2023-12-15 11:05 | disposition home or self-care (01) ==
LOC: SURG 15:11 → MEDICAL 15:11 → SURG 12-14 08:15
PROVIDERS: Internal Medicine; Physician Assistant; ADMIT Urology
DX: R31.0 Gross hematuria (principal); I48.0 Paroxysmal atrial fibrillation; E11.622 Type 2 diabetes mellitus with other skin ulcer; L98.499 Non-pressure chronic ulcer of skin of other sites with unspecified severity; E11.51 Type 2 diabetes mellitus with diabetic peripheral angiopathy without gangrene; E78.5 Hyperlipidemia, unspecified; I25.10 Atherosclerotic heart disease of native coronary artery without angina pectoris; I44.2 Atrioventricular block, complete; I13.0 Hypertensive heart and chronic kidney disease with heart failure and stage 1 through stage 4 chronic kidney disease, or unspecified chronic kidney disease; I50.30 Unspecified diastolic (congestive) heart failure; I71.40 Abdominal aortic aneurysm, without rupture, unspecified; N18.4 Chronic kidney disease, stage 4 (severe); E11.22 Type 2 diabetes mellitus with diabetic chronic kidney disease; N17.9 Acute kidney failure, unspecified; Z98.890 Other specified postprocedural states; Z95.828 Presence of other vascular implants and grafts; Z95.0 Presence of cardiac pacemaker; Z85.51 Personal history of malignant neoplasm of bladder; Z79.02 Long term (current) use of antithrombotics/antiplatelets; Z95.5 Presence of coronary angioplasty implant and graft; Z79.4 Long term (current) use of insulin; Z79.899 Other long term (current) drug therapy; Z90.5 Acquired absence of kidney; Z85.528 Personal history of other malignant neoplasm of kidney
CPT/HCPCS: G0378; G0379; J1815

== ENCOUNTER 2024-01-25 14:52 | Inpatient (IN) | payer MEDICARE ==
[~2024-01-25] VITALS: Ht 172.7 cm; Wt 118.2 kg
[2024-01-25] VITALS (12 sets, daily range): BP systolic 116–172; BP diastolic 43–66; PULSE 70–93; TEMP 97.7–98.6
[~2024-01-25 14:52] MED LIST changes: +GLUCAGEN HYPOKIT1 MG IJ; +MULTIPLE VITAMI1 CAP PO; +NYSTATIN100000 U/1 TOP; +PLAVIX 75MG TAB75 MG PO
[2024-01-25 15:25] LABS: MEAN CELL VOLUME 91 fl (80.0-100.0); MEAN CORPUSCULAR HEMOGLOBIN 29 pg (27-31); MEAN CORPUSCULAR HGB CONC 32 g/dl (33.0-37.0); MEAN PLATELET VOLUME 8.9 fl (7.4-10.4); PLATELET COUNT 369 K/mm3 (130-400); RED BLOOD COUNT 3.45 M/mm3 (4.20-5.60); REDCELL DISTRIBUTION WIDTH-CV 13.7 % (11.5-14.5)
[2024-01-25 15:30] LABS: INR 1.1 (0.8-3.0); PROTHROMBIN TIME 11.7 SECONDS (9.7-12.8)
[2024-01-25 15:41] LABS: HEMATOCRIT 31.3 % (42.0-52.0)
[2024-01-25 15:43] LABS: ALBUMIN 3.2 g/dL (3.4-4.8); BILIRUBIN,TOTAL 0.7 mg/dL (0.2-1.2); CALCIUM 9.1 mg/dL (8.4-10.2); CREATININE, serum 2.11 mg/dL (0.72-1.25); POTASSIUM 4.4 mEq/L (3.5-4.5); TOTAL PROTEIN 6.9 g/dl (6.2-8.1)
[2024-01-25 15:55] LABS: LYMPHOCYTE 6 % (20.0-51.0); NEUTROPHILS 86 % (42.0-75.2); PLATELET ESTIMATE NORMAL (NORMAL)
[2024-01-25 15:56] LABS: HYPOCHROMIA 2+
[2024-01-25] MEDS ORDERED: NORVASC2.5 MG PO (16:53)
[2024-01-25] MEDS ORDERED: Rocuronium 50 MG/5 ML Multi-Dose VIAL ONE (17:14)
[2024-01-25] MEDS ORDERED: Succinylcholine PF 200 MG/10 ML SYRINGE IV ONE (17:14)
[2024-01-25] MEDS ORDERED: Lidocaine PF 2% (20 MG/ML) 5 ML VIAL ONE (17:15)
[2024-01-25] MEDS ORDERED: traMADol 50 MG TAB PO PRN (17:15)
[2024-01-25] MEDS ORDERED: Ondansetron 4 MG/2 ML VIAL IV PRN ×2 (17:15→18:00)
[2024-01-25] MEDS ORDERED: Melatonin 3 MG TAB PO PRN (17:15)
[2024-01-25] MEDS ORDERED: Acetaminophen 500 MG TAB PO PRN (17:15)
[2024-01-25] MEDS ORDERED: cefTRIAXone 1 G in Water For Injection,Sterile 10 ML IV SCH (17:15)
[2024-01-25] MEDS ORDERED: NS 100 ML IV ONE (17:16)
[2024-01-25] MEDS ORDERED: Phenylephrine 10 MG/ML VIAL ONE (17:16)
[2024-01-25] MEDS ORDERED: Ondansetron 4 MG/2 ML VIAL ONE (17:16)
[2024-01-25] MEDS ORDERED: NS 20 ML IV ONE (17:16)
[2024-01-25] MEDS ORDERED: dexAMETHasone 10 MG/ML VIAL ONE (17:16)
[2024-01-25] MEDS ORDERED: Glycopyrrolate 0.2 MG/ML 1 ML VIAL ONE (17:16)
[2024-01-25] MEDS ORDERED: hydrALAZINE 20 MG/ML 1 ML VIAL IV PRN (18:00)
[2024-01-25] MEDS ORDERED: fentaNYL 50 MCG/ML 1 ML SYRINGE/VIAL [PACU/SDC ONLY] IV PRN (18:00)
[2024-01-25] MEDS ORDERED: Dextrose (Glucose) 15 GM (4 x 3.75 GM) Chewable TABLET PACK PO PRN (18:00)
[2024-01-25] MEDS ORDERED: Dextrose 50% Water 25 GM/50 ML SYRINGE IV PRN (18:00)
[2024-01-25] MEDS ORDERED: Glucagon 1 MG VIAL IM PRN (18:00)
[2024-01-25] MEDS ORDERED: fentaNYL 50 MCG/ML 2 ML VIAL ONE (18:15)
[2024-01-25] MEDS ORDERED: Iohexol 350 - 100 ML VIAL URETER-B ONE (18:35)
[2024-01-25] MEDS ORDERED: Lidocaine 2% (20 MG/ML) 20 ML UROJET UR ONE (18:49)
--- NOTE | 2024-01-25 20:00 | NUR ---
Patient arrived to room 328 via bed from PACU. Oriented to room/policy. Admission assessment complete. A&Ox3. Denies pain/nausea/shortness of breath. Post op vitals initiated and WNL. Blood pressure slightly elevated-provider aware. CBI running at max due to formulin-light yellow output. INT to right AC flushes without difficulty. INTd. Plan of care discussed for this shift to include meds/pain control/calling for questions/concerns. Verbalized understanding. Call light in reach. Will monitor.
[2024-01-25] MEDS ORDERED: Insulin Glargine-ygfn (Lantus) SQ SCH (21:00)
[2024-01-25] MEDS ORDERED: Insulin Lispro (HumaLOG) SQ SCH (21:00)
[2024-01-25] MEDS ORDERED: NS Irrig Soln 3000 ML SOLN IRP PRN (22:15)
--- NOTE | 2024-01-25 22:39 | NUR ---
CBI rate increased due to powell red output. Will monitor.
[2024-01-26] VITALS (10 sets, daily range): BP systolic 61–156; BP diastolic 59–76; PULSE 71–97; TEMP 98–103
--- NOTE | 2024-01-26 01:45 | NUR ---
Patient resting eyes closed. No s/s of pain or discomfort noted. CBI continues to run at a fast rate with light pink output. Will monitor.
--- NOTE | 2024-01-26 04:59 | NUR ---
Patient rested off and on this shift. CBI continues to run at a fast rate with light pink to dark pink output. INT to right AC flushes without difficulty. VS remained stable. Currently on RA. Denied pain/nausea/shortness of breath. Call light in reach. Will monitor.
--- NOTE | 2024-01-26 08:00 | NUR ---
Pt. sitting up in bed. Pt. is A&Ox3, shift assessment complete. INT to rt. ac patent. Elam catheter with CBI running fast, urine is powell red with no clots noted. Pt. denies pain or other needs, call light within reach.
[2024-01-26] MEDS ORDERED: Furosemide 40 MG TAB PO SCH (09:00)
[2024-01-26] MEDS ORDERED: Losartan 50 MG TAB PO SCH (09:00)
[2024-01-26] MEDS ORDERED: Telmisartan 40 MG **** subs to Losartan 50 MG PO SCH (09:00)
[2024-01-26] MEDS ORDERED: NIFEdipine XL 30 MG TAB PO SCH (09:00)
[2024-01-26] MEDS ORDERED: Multivitamin TAB PO SCH (09:00)
[2024-01-26] MEDS ORDERED: amLODIPine 5 MG TAB PO SCH (09:00)
[2024-01-26] MEDS ORDERED: Insulin Glargine-ygfn (Lantus) SQ SCH ×2 (10:00→21:00)
[2024-01-26 10:16] LABS: MEAN CELL VOLUME 88 fl (80.0-100.0); MEAN CORPUSCULAR HGB CONC 33 g/dl (33.0-37.0); PLATELET COUNT 342 K/mm3 (130-400); RED BLOOD COUNT 3.16 M/mm3 (4.20-5.60); REDCELL DISTRIBUTION WIDTH-CV 13.5 % (11.5-14.5)
[2024-01-26 10:26] LABS: HEMATOCRIT 27.7 % (42.0-52.0); HEMOGLOBIN 9.2 g/dl (13.5-18.0); MEAN CORPUSCULAR HEMOGLOBIN 29 pg (27-31)
[2024-01-26 10:27] LABS: CALCIUM 8.5 mg/dL (8.4-10.2); CREATININE, serum 2.36 mg/dL (0.72-1.25); MAGNESIUM 2.1 mg/dL (1.6-2.6)
[2024-01-26 10:30] LABS: COLLECTION METHOD CATHETER
[2024-01-26 11:05] LABS: URINE APPEARANCE CLOUDY (CLEAR/HAZY); URINE BLOOD 3+ (NEGATIVE); URINE COLOR RED (YELLOW); URINE GLUCOSE TRACE (NEGATIVE); URINE KETONE NEGATIVE (NEGATIVE); URINE NITRATE NEGATIVE (NEGATIVE); URINE PROTEIN(semi-quant) TRACE (BEGATIVE); URINE UROBILINOGEN 0.2 E.U/dL (0.2-1.0)
[2024-01-26 11:58] LABS: LYMPHOCYTE 3 % (20.0-51.0); NEUTROPHILS 94 % (42.0-75.2)
[2024-01-26 11:59] LABS: PLATELET ESTIMATE NORMAL (NORMAL)
[2024-01-26] MEDS ORDERED: Insulin Lispro (HumaLOG) SQ SCH (12:00)
--- NOTE | 2024-01-26 13:35 | NUR ---
[employer] Programmer met with patient to discuss discharge planning. Patient lives in [place] with his , Consuelo (ph#[phone]) and sees Dr. Rowe for primary care. Patient gets medications either from [facility] or [facility]. Patient stated he has access to all needed DME as his son is an amputee. SW asked patient if he uses any DME for ambulation, he stated he would rather furniture surf that use any assistive devices at this time. Patient stated his main issue is vertigo due to inner ear problems. Patient stated he is independent with ADLS, including driving. Patient stated he used to have Home Health, but [employer] stopped paying. Patient advised his , Consuelo is his DPOA-HC and he plans to return home at time of discharge. Later, SW received a call from KERRY Byrne at [facility] who advised they do have patient on service for nursing needs, primarily would care. Caty remarked patient is somewhat non compliant with his wound care and they work with together with outpatient wound care for patient's needs. SW faxed Caty clinical updates. Discharge Plan: Home with [facility]
--- NOTE | 2024-01-26 17:20 | NUR ---
Pt.'s blood glucose at 406. Dr. Veloz notified. Continue with current insulin orders.
--- NOTE | 2024-01-26 20:40 | NUR ---
DR KENNEDY NOTIFIED PER PHONE OF BGM 407, SEE EMAR FOR TX
[2024-01-27] VITALS (13 sets, daily range): BP systolic 97–147; BP diastolic 59–80; PULSE 64–72; TEMP 98–101.3
--- NOTE | 2024-01-27 | NUR ---
PT UNDER SEVERAL WARM BLANKETS, TEMP 103.0 ORAL, SHIVERING. REMOVED ALL BLANKETS AND COVERED WITH SHEET ONLY, TYLENOL GIVEN, MEWS SCORE 3
--- NOTE | 2024-01-27 00:45 | NUR ---
TEMP DOWN TO 101.3 ORAL
--- NOTE | 2024-01-27 08:00 | NUR ---
PATIENT IS A&O. VSS. REPORTS MILD DISCOMFORT IN BLADDER WITH CBI INFUSING AT FAST RATE. DAWSON TO DD WITH LARGE AMOUNTS OF REDDISH URINE WITH OCCATIONAL SMALL TISSUE CLOTS NOTED. PATIENT TAKING PO WELL. NO C/O N/V. RIGHT AC IV TO INT. NOTED BLE +1 EDEMA. LLE HEEL HAS CHRONIC STAGE 1 ULCER AND PATIENT FOLLOWS WITH WOUND CARE FOR THIS, DSG INTACT. PLAN IS TO CONSULT WOUND CARE TO CONTINUE TO MANAGE LLE ULCER. EMBOSSING PRESS OPERATOR APPRENTICE REPORTED TEMPS OF 103 & 101.3, TEMP THIS AM WAS 99 AND PRN TYLENOL GIVEN WITH AM MEDS. HEAD TO TOE ASSESSMENT COMPLETE. DNR STATUS. PATIENT SITTING UP IN BED WITH BREAKFAST TRAY. NO OTHER NEEDS AT THIS TIME. CALL LIGHT IN REACH.
[2024-01-27] MEDS ORDERED: Losartan 50 MG TAB PO SCH (09:00)
--- NOTE | 2024-01-27 09:30 | NUR ---
UROLOGY AT BEDSIDE, SEE NOTES
[2024-01-27] MEDS ORDERED: Doxycycline Monohydrate 100 MG CAP PO SCH (09:39)
[2024-01-27] MEDS ORDERED: Polyethylene Glycol 3350 17 GM PDS PO SCH (14:13)
[2024-01-28] VITALS (11 sets, daily range): BP systolic 124–155; BP diastolic 59–77; PULSE 65–80; TEMP 97.7–99.6
--- NOTE | 2024-01-28 05:58 | NUR ---
TYLENOL GIVEN THIS AM FOR TEMP 99.6, 900 CC DARK TEA COLORED, HAZY URINE OUT THIS SHIFT, PER DAWSON, NO CLOTS PRESENT, NO C/O PAIN OR DISCOMFORT.
[2024-01-28 07:16] LABS: CALCIUM 8.5 mg/dL (8.4-10.2); CREATININE, serum 2.44 mg/dL (0.72-1.25); POTASSIUM 4.1 mEq/L (3.5-4.5)
[2024-01-28 07:22] LABS: MEAN CELL VOLUME 89 fl (80.0-100.0); MEAN CORPUSCULAR HGB CONC 33 g/dl (33.0-37.0); MEAN PLATELET VOLUME 9.4 fl (7.4-10.4); PLATELET COUNT 325 K/mm3 (130-400); RED BLOOD COUNT 2.77 M/mm3 (4.20-5.60); REDCELL DISTRIBUTION WIDTH-CV 13.5 % (11.5-14.5)
[2024-01-28 07:25] LABS: HEMATOCRIT 24.6 % (42.0-52.0); MEAN CORPUSCULAR HEMOGLOBIN 29 pg (27-31)
--- NOTE | 2024-01-28 08:00 | NUR ---
PATIENT IS A&O AND AMBULATING IN HALLS WITH PT, GAIT STEADY WITH WALKER. VSS. DENIES PAIN OR NAUSEA ISSUES. CBI STILL CLAMPED AND ROLL HANDLER REPORTED THEY DID NOT HAVE TO IRRIGATE ANY CLOTS. DAWSON TO DD WITH DARK BLOODY URINE NOTED. RIGHT AC IV TO INT. AM BS WAS 183, SSI GIVEN WITH AM MEDS. ATE BREAKFAST WELL. TEMP OVER NIGHT WAS IMPROVED, REPORTED HIGHEST OF 99.6 OTHERWISE AFEBRILE. NOTED BLE EDEMA AND CHRONIC LLE HEEL WOUND THAT HE SEE'S WOUND CARE FOR, DSG INTACT. HEAD TO TOE ASSESSMENT COMPLETE. DNR STATUS. NO OTHER NEEDS AT THIS TIME. CALL LIGHT IN REACH.
[2024-01-28 08:30] LABS: BAND 4 % (0-10); LYMPHOCYTE 18 % (20.0-51.0); NEUTROPHILS 65 % (42.0-75.2); PLATELET ESTIMATE NORMAL (NORMAL)
--- NOTE | 2024-01-28 10:15 | NUR ---
PATIENT GETTING INTO THE SHOWER. CBI CLAMPED AND DISCONNECTED. DAWSON TO DD. IV TO INT AND COVERED BY PCT. PATIENT NOW IN SHOWER.
--- NOTE | 2024-01-28 11:30 | NUR ---
DC'D DAWSON PER UROLOGY, PATIENT TOLERATED WELL. 6 CUPS IN BATHROOM AND PATIENT GIVEN EDUCATION. PATIENT SELF CATHS AT HOME AND HE PREFERS HIS SUPPLIES. PATIENT HAS A FRIEND BRINING IN HIS SUPPLIES NOW. UROLOGY TO SEE PATIENT LATER TODAY TO SEE HOW SELF CATHS ARE GOING.
--- NOTE | 2024-01-28 11:53 | NUR ---
SW sent updates to [employer] for review. SW will continue to follow.
[2024-01-29 00:34] VITALS: BP_SYST 145
[2024-01-29 03:38] VITALS: BP 129/79; PULSE 63; TEMP 97.7
[2024-01-29 03:50] VITALS: BP_SYST 129
--- NOTE | 2024-01-29 06:31 | NUR ---
PT UP INDEPENDENTLY IN ROOM, SELF CATHETERIZING, URINE REMAINS DARK RED, HAZY, BUT GETTING GOOD AMT OUT, NO BRIGHT RED BLOOD OR LARGE BLOOD CLOTS NOTED. BGM 189 AT HS, SEE EMAR.
[2024-01-29 07:07] LABS: MEAN CELL VOLUME 88 fl (80.0-100.0); MEAN CORPUSCULAR HGB CONC 33 g/dl (33.0-37.0); MEAN PLATELET VOLUME 9.5 fl (7.4-10.4); PLATELET COUNT 331 K/mm3 (130-400); RED BLOOD COUNT 2.74 M/mm3 (4.20-5.60); REDCELL DISTRIBUTION WIDTH-CV 13.3 % (11.5-14.5)
[2024-01-29 07:08] LABS: HEMATOCRIT 24.2 % (42.0-52.0); HEMOGLOBIN 7.9 g/dl (13.5-18.0); MEAN CORPUSCULAR HEMOGLOBIN 29 pg (27-31)
[2024-01-29 07:18] LABS: CALCIUM 8.4 mg/dL (8.4-10.2); CREATININE, serum 2.32 mg/dL (0.72-1.25)
[2024-01-29 07:52] VITALS: BP 150/76; PULSE 62; TEMP 97.9
[2024-01-29 08:09] LABS: BAND 5 % (0-10); EOSINOPHIL 2 % (0-4); LYMPHOCYTE 15 % (20.0-51.0); NEUTROPHILS 71 % (42.0-75.2); PLATELET ESTIMATE NORMAL (NORMAL)
[2024-01-29] MEDS ORDERED: CEFTIN500 MG PO (08:40)
[2024-01-29] MEDS ORDERED: LASIX 20MG TABL20 MG PO (08:49)
[2024-01-29 09:00] VITALS: BP_SYST 150
[2024-01-29] MEDS ORDERED: Furosemide 20 MG TAB PO SCH (09:00)
[2024-01-29] MEDS ORDERED: Clopidogrel 75 MG TAB PO SCH (09:00)
--- NOTE | 2024-01-29 09:00 | NUR ---
Pt. sitting up in bed. Pt. is A&OX3, assessment complete. INT to rt. ac patent. Pt. denies pain or other needs, call light within reach.
--- NOTE | 2024-01-29 10:45 | NUR ---
Pt. with discharge orders. Removed int to rt. ac. Reviewed and gave discharge paperwork to the pt. Pt. voices understanding. Pt. getting dressed and will call when ride arrives.
--- NOTE | 2024-01-29 11:35 | NUR ---
Pt.'s ride has arrived. Pt. escorted out by wheelchair.
--- NOTE | 2024-01-29 11:56 | NUR ---
SW attended clinical rounds with team. Patient stable for discharge. Patient discharged to home with [facility] . DC orders and clinical updates faxed to [facility].
[2024-01-29] MEDS ORDERED: Cefuroxime 250 MG TAB PO SCH (17:00)
== END 2024-01-29 11:30 | disposition home health service (06) | DRG 669 ==
LOC: COL.ER 14:52 → SURG 16:56
PROVIDERS: Internal Medicine; Nurse Practitioner; Urology; ADMIT Internal Medicine
PROC: 0TCB8ZZ Extirpation of Matter from Bladder, Via Natural or Artificial Opening Endoscopic (ICD-10-PCS; 2024-01-25)
PROC: 0T5C8ZZ Destruction of Bladder Neck, Via Natural or Artificial Opening Endoscopic (ICD-10-PCS; principal; 2024-01-25 18:22)
PROC: BT101ZZ Fluoroscopy of Bladder using Low Osmolar Contrast (ICD-10-PCS; 2024-01-25 18:22)
DX: R31.0 Gross hematuria (principal); D62 Acute posthemorrhagic anemia; I13.0 Hypertensive heart and chronic kidney disease with heart failure and stage 1 through stage 4 chronic kidney disease, or unspecified chronic kidney disease; I50.32 Chronic diastolic (congestive) heart failure; R33.9 Retention of urine, unspecified; N17.9 Acute kidney failure, unspecified; Z66 Do not resuscitate; D72.829 Elevated white blood cell count, unspecified; N18.30 Chronic kidney disease, stage 3 unspecified; I73.9 Peripheral vascular disease, unspecified; E78.5 Hyperlipidemia, unspecified; I25.10 Atherosclerotic heart disease of native coronary artery without angina pectoris; E11.22 Type 2 diabetes mellitus with diabetic chronic kidney disease; I48.0 Paroxysmal atrial fibrillation; H26.9 Unspecified cataract; M19.90 Unspecified osteoarthritis, unspecified site; Z96.653 Presence of artificial knee joint, bilateral; J44.9 Chronic obstructive pulmonary disease, unspecified; I71.40 Abdominal aortic aneurysm, without rupture, unspecified; Z95.5 Presence of coronary angioplasty implant and graft; Z79.02 Long term (current) use of antithrombotics/antiplatelets; Z95.0 Presence of cardiac pacemaker; Z95.818 Presence of other cardiac implants and grafts; Z88.5 Allergy status to narcotic agent; Z79.4 Long term (current) use of insulin; Z79.899 Other long term (current) drug therapy; Z85.51 Personal history of malignant neoplasm of bladder; Z79.01 Long term (current) use of anticoagulants; Z23 Encounter for immunization
CPT/HCPCS: J0690; J0696; J1100; J1815; J2371; J2405; J2704; J3010; Q9967

== ENCOUNTER 2024-02-08 14:30 | Emergency (ER) | payer OTHER ==
[2024-02-08 14:30] VITALS: PULSE 0
[~2024-02-08 14:30] MED LIST changes: +NORVASC2.5 MG PO
[2024-02-08] MEDS ORDERED: EPINEPHrine 1 MG/10 ML (1:10,000) SYRINGE IV SCH (14:33)
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
== END 2024-02-08 18:32 | disposition expired ==
LOC: COL.ER 14:30
DX: S70.11XA Contusion of right thigh, initial encounter (principal); S20.211A Contusion of right front wall of thorax, initial encounter; T07.XXXA Unspecified multiple injuries, initial encounter; I46.9 Cardiac arrest, cause unspecified; V89.2XXA Person injured in unspecified motor-vehicle accident, traffic, initial encounter; Y92.89 Other specified places as the place of occurrence of the external cause
CPT/HCPCS: J0171